=== PATIENT | male | born 1995 | race Caucasian/White ===

== ENCOUNTER 2024-07-25 05:22 | Inpatient (IN) | payer BC, SELFPAY ==
[2024-07-24 23:45] VITALS: BP 189/120; BMI 62.4
[2024-07-25] VITALS (33 sets, daily range): BP systolic 116–196; BP diastolic 65–138; BMI 62.4
[2024-07-25 00:29] LABS: % Basophils 0.4 % (0-2); % Eosinophils 0.9 % (0-6); % Immature Granulocytes 1.9 % (0-0.5); % Lymphocytes 31.7 % (20.5-51.1); % Monocytes 15.4 % (1.7-9.3); % Neutrophils 49.7 % (42.2-75.2); Absolute Eosinophils 0.1 10^3/uL (0-0.7); Absolute Immature Granulocytes 0.1 10^3/uL (0-0.05); Absolute Lymphocytes 2.4 10^3/uL (1.2-3.4); Absolute Monocytes 1.2 10^3/uL (0.1-0.6); Absolute Neutrophils 3.7 10^3/uL (1.4-6.5); Hematocrit 34.3 % (39.0-52.0); Hemoglobin 11.3 g/dL (13.0-18.0); Mean Corp Hgb Conc. 32.9 g/dL (33.0-37.0); Mean Corpuscular Hgb 30.5 pg (27.0-31.0); Mean Corpuscular Volume 92.5 fL (80.0-94.0); Mean Platelet Volume 9.7 fL (7.4-10.4); Nucleated Red Blood Cells % 0 % (-); Platelet Count 293 10^3/uL (130-400); Red Blood Cell Count 3.71 10^6/uL (4.70-6.10); Red Cell Dist. Width 18.9 % (11.5-14.5); White Blood Cell Count 7.5 10^3/uL (4.8-10.8)
--- NOTE | 2024-07-25 00:30 | ED.GENMED ---
History of Present Illness
<Dominick Jett PA-C - Last Filed: 07/26/24 18:36>
General
Chief Complaint: Male Genito-Urinary Symptoms
Time Seen by Provider: 07/25/24 00:04
History of Present Illness
History of Present Illness:
29-year-old male with history of polysubstance abuse presents to the emergency department for evaluation of multiple complaints. He was reportedly admitted to [facility] on July 21 due to visual hallucinations as well as severe scrotal
cellulitis. He was admitted to the intensive care unit and started on a Precedex drip due to concern for substance withdrawal. According to [facility] records he had significant apnea and hypercapnia as a result of the Precedex drip and was placed
on BiPAP, Precedex was then stopped. He was treated with IV antibiotics for scrotal cellulitis. Today he became increasingly agitated and signed himself out AGAINST MEDICAL ADVICE. I do not see any record of imaging performed to assess the
scrotal cellulitis further. The patient admits to me a long history of nitrous oxide abuse, prior history of alcohol abuse but has not drank in at least 3 months. Currently he has severe paranoia and severe visual hallucinations however he refuses
to tell me exactly what he is seeing
Review of Systems
<Dominick Jett PA-C - Last Filed: 07/26/24 18:36>
Review of Systems
Allergies reviewed?: Yes
All Other Systems: ROS reviewed and negative except as documented in HPI and ROS
Phy Exam
<Dominick Jett PA-C - Last Filed: 07/26/24 18:36>
Physical Exam
Physical Exam:
GEN: Morbidly obese, appears to be responding to internal stimuli, eyes darting across the room
Eyes: PERRLA, horizontal nystagmus seen, fatigable, oral mucosa dry
HENT: NCAT, oral mucosa moist, no JVD, no cervical adenopathy.
Lungs: CTAB, no wheezes, rales, rhonchi, normal chest wall excursion
Cardiac: Tachycardic, regular
Abdomen: Massive obesity limits exam
: Massive scrotal edema and erythema with purulent discharge
Neuro: Alert and oriented x 3 but with visual hallucinations
MSK: No gross deformity or ecchymosis. Severe bilateral lower extremity lymphedema
Skin: No rashes, petechiae. Normal color, no pallor or jaundice.
Psych: Calm, cooperative, poor hygiene, intermittently agitated
Sepsis
<Dominick Jett PA-C - Last Filed: 07/26/24 18:36>
Sepsis Screening
Sepsis Assessment: Sepsis Ruled Out
Sepsis Screen
Sepsis Screen: Sepsis Ruled Out
Date: 07/26/24
Time: 18:36
Course
<Dominick Jett PA-C - Last Filed: 07/26/24 18:36>
Orders/Labs/Results
Orders:
Orders
07/25/24 00:13
Electrocardiogram (*1) Urgent
Reason for Study: Other
Other Reason for Exam: Possible Sepsis
Cardiac Monitoring- Treatment ONCE
IV Insert/Care/Rem.- Treatment PRN
O2 Therapy [RESP] Urgent
Titrate/Wean O2 to maintain O2 sat greater than (%): 93
Special Instructions: TO MAINTAIN CONTINUOUS O2 SATS > OR = 93%
Pulse Ox/cont/shift [RESP] Urgent
Quantity: 1
Special Instructions: CONTINUOUS
07/25/24 00:14
EKG- Treatment ONCE
07/25/24 00:15
Complete Blood Count/With Diff Urgent
Comprehensive Metabolic Panel Urgent
Fentanyl, Urine Urgent
Folate Urgent
Lactic Acid Q4H
Comment: ON ICE, CANCEL 2ND ORDER IF FIRST LACTIC ACID LEVEL <2
Urine Drug Abuse Screen Urgent
Date Specimen was Collected: 07/25/24
Time Specimen was Collected: 00:14
Vitamin B12 Urgent
Comment: ADD ON
07/25/24 00:27
0.9% Sodium Chloride 1000 ml [Nss] 1,000 ml IV BOLUS
07/25/24 00:29
Acetone [B-Hydroxybutyrate] Urgent
Venous Blood Gas Urgent
%Oxygen/Room Air: 90
FOLic ACID [Folvite] 1 mg 0.9% Sodium Chloride 50 ml [Nss] 50 ml IV NOW
Piperacillin/Tazo 3.375 Gram [Zosyn] 3.375 gram in 50 ml IV NOW
07/25/24 00:30
Add On- LAB Urgent
Tests Added?: B12, folate
Blood Culture Q30M
ROBBIN Source: Blood/Venous
Specimen Description:
07/25/24 00:31
Blood Culture Q30M
ROBBIN Source: Blood/Venous
Specimen Description:
07/25/24 01:04
Brambila Placement- Treatment ONCE
Reason for insertion: Urology Determination
07/25/24 01:25
Urinalysis Reflex To Culture Urgent
Date Specimen was Collected: 07/25/24
Time Specimen was Collected: 00:14
Urine Microscopic Reflex Cult Urgent
07/25/24 01:30
Vancomycin [Vancocin] 2,000 mg 0.9% Sodium Chloride 500 ml [Nss] 500 ml IV NOW
07/25/24 03:03
Lorazepam [Ativan] 1 mg IV NOW STA
07/25/24 03:08
CT Pelvis With Iv Contrast Urgent
Comment:
Reason For Exam: scrotal abscess
07/25/24 04:46
Admit/Transfer Patient As Directed
Co-Sign Provider:
Level of Care: Inpatient admission
Assign to:: ICU
Physician / Group: Ang
Diagnosis: Scrotal Cellulitis, Psychosis / Substance Use Disorder
Reason for Hospitalization: Scrotal Cellulitis, Psychosis / Substance Use Disorder
Expected length of stay greater than two midnights?: Yes
ELOS- Estimated Length of Stay in days: 5
I certify the patient meets the requirements for IP care: Yes
Lorazepam [Ativan] 1 mg IV NOW STA
07/25/24 04:47
PRN Pain Medication Management As Directed
May give lesser potent ordered pain med per pt: Yes
preference::
Protocol:: Medication orders for pain may be administered in a
manner that supports deferring to patient preference
when the pt is:
- Requesting an ordered lesser potent pain medication.
Least to most potent pain medications are defined
as: acetaminophen < NSAID < tramadol < opioids
(morphine, oxycodone, hydromorphone).
- Requesting a lesser dose of the same medication IF
ORDERED.
- Requesting a less intrusive route of administration
if both routes are prescribed by the provider (PO <
IV).
07/25/24 04:49
Code Status As Directed
Resuscitation Status: Full Code
07/25/24 05:59
Acetaminophen [Tylenol] 650 mg PO Q4HPRN PRN
Dextrose 50%-Water [Dextrose 50% Syringe] 12.5 grams IV [id number] PRN
Glucagon [GlucaGen] 1 mg IM PRN PRN
HYDROmorphone [Dilaudid] 0.5 mg IV Q4HPRN PRN
Lorazepam [Ativan] 1 mg IV Q4HPRN PRN
07/25/24 05:59
Consult Notification Routine
Specialty to Notify: Infectious Disease
Date consulting provider notified: 07/25/24
Time consulting provider notified: 08:13
Notified:: Provider
Consult Notification Routine
Specialty to Notify: Ergonomics Consultant
Date consulting provider notified: 07/25/24
Time consulting provider notified: 08:12
Notified:: Provider
Consult Notification Routine
Specialty to Notify: Neurology
Date consulting provider notified: 07/25/24
Time consulting provider notified: 08:13
Notified:: Provider
Consult Notification Routine
Specialty to Notify: Psychiatry
Date consulting provider notified: 07/25/24
Time consulting provider notified: 08:13
Notified:: Provider
INFECTIOUS DISEASE CONSULT Routine
Consulting Provider: Dior Pablo
Was physician already notified: No
Reason for consult: Scrotal cellulitis
Ergonomics Consultant Consult Routine
Consulting Provider: Elton Polanco
Was physician already notified: No
Reason for consult: Scrotal Cellulitis, Psychosis / Substance Use Disorder
NEUROLOGY CONSULT Routine
Consulting Provider: Devon Johnston
Was physician already notified: No
Reason for consult: Acute Delirium / Chronic Nitrous Oxide Abuse
PSYCHIATRY CONSULT Routine
Consulting Provider: Huyen Grimes
Was physician already notified: No
Reason for consult: Psychosis / Substance Use Disorder
UROLOGY CONSULT Routine
Consulting Provider: Everardo Jiang
Was physician already notified: Yes
Comment: Scrotal Cellulitis
Activity As Directed
Activity Level: Ambulate
With Assistance
Bedside Glucose Monitoring As Directed
Frequency: Q6H
Additional Instructions:: Change to q6h if pt on TPN, tube feeding or not eating
EKG with chest pain [ECG as needed] As Directed
ECG as needed for:: Chest Pain
Brambila Catheter [Catheter- Indwelling] As Directed
Reason for insertion: I&O's Critical Care
Assess insertion reason daily.Remove if no longer applicable: Yes
I/O [Intake/ Output] As Directed
Frequency: Per unit guidelines
Neurological Checks As Directed
Frequency: q4h
Vital Signs As Directed
Frequency: Per unit guidelines
Oxygen Therapy [O2 Therapy] [RESP] Routine
Titrate/Wean O2 to maintain O2 sat greater than (%): 94
Ot Eval And Treat Routine
PT Consult [Pt Eval And Treat] Routine
Activity Level: Ambulate
With Assistance
DX Deep Vein Thrombosis Video Routine
07/25/24 06:00
EKG [Electrocardiogram (*1)] IN AM
Reason for Study: Chest Pain
NPO
Allow oral meds: Yes
Allow clear liquids: Sips of Clears
07/25/24 06:47
CPK [Creatine Phosphokinase] IN AM
Methylmalonic Acid [S] Routine
TSH Reflex To Free T4 Routine
07/25/24 06:48
Glycohemoglobin (HgbA1c) IN AM
07/25/24 07:30
Insulin Aspart Corrective Low [Novolog Flexpen-Low Resistance] See Protocol SC AC
07/25/24 08:00
Cyanocobalamin 1,000 mcg IM DAILY
Enoxaparin Sodium [Lovenox] 40 mg SC BID
Piperacillin/Tazo 3.375 Gram [Zosyn] 3.375 gram in 50 ml IV Q6H
Abnormal Lab Results
07/25/24 07/25/24 07/25/24
00:15 00:29 01:25
RBC 3.71 L 10^6/uL
(4.70-6.10)
Hgb 11.3 L g/dL
(13.0-18.0)
Hct 34.3 L %
(39.0-52.0)
MCHC 32.9 L g/dL
(33.0-37.0)
RDW 18.9 H %
(11.5-14.5)
Abs Immat Gran (auto) 0.1 H 10^3/uL
(0-0.05)
Absolute Monos (auto) 1.2 H 10^3/uL
(0.1-0.6)
Immature Gran % 1.9 H %
(0-0.5)
Monocytes % 15.4 H %
(1.7-9.3)
VBG pO2 91 H mmHg
(30-50)
Vitamin B12 981 H pg/ml
(239-931)
Folate > 20.0 H ng/ml
(2.76-20)
Urine Ketones 1+ A
(Negative)
Ur Occult Blood Reflex 1+ A
(Negative)
Leukocyte Esterase Rfl Trace A
(Negative)
Urine RBC 7-10 A /HPF
(0-2)
Urine Bacteria (Reflex) Few A
(Negative)
U Benzodiazepines Scrn Positive H
(Negative)
U Marijuana (THC) Screen Positive H
(Negative)
B-Hydroxybutyrate 1.97 H mmol/L
(0.02-0.27)
07/25/24 00:15
07/25/24 00:15
Vital Signs
Initial and Last Documented VS:
Initial Vital Signs
Temp Pulse Resp BP Pulse Ox
99.8 F 114 24 189/120 94
07/24/24 23:45 07/24/24 23:45 07/24/24 23:45 07/24/24 23:45 07/24/24 23:45
Last Documented Vital Signs
Temp Pulse Resp BP Pulse Ox
99.2 F 73 19 150/87 98
07/26/24 15:00 07/26/24 14:00 07/26/24 14:00 07/26/24 12:00 07/26/24 16:00
Vandanalt;Med Lamb, - Last Filed: 07/25/24 03:40>
Orders/Labs/Results
Orders:
Orders
07/25/24 00:13
Electrocardiogram (*1) Urgent
Reason for Study: Other
Other Reason for Exam: Possible Sepsis
Cardiac Monitoring- Treatment ONCE
IV Insert/Care/Rem.- Treatment PRN
O2 Therapy [RESP] Urgent
Titrate/Wean O2 to maintain O2 sat greater than (%): 93
Special Instructions: TO MAINTAIN CONTINUOUS O2 SATS > OR = 93%
Pulse Ox/cont/shift [RESP] Urgent
Quantity: 1
Special Instructions: CONTINUOUS
07/25/24 00:14
EKG- Treatment ONCE
07/25/24 00:15
Complete Blood Count/With Diff Urgent
Comprehensive Metabolic Panel Urgent
Fentanyl, Urine Urgent
Folate Urgent
Lactic Acid Q4H
Comment: ON ICE, CANCEL 2ND ORDER IF FIRST LACTIC ACID LEVEL <2
Urine Drug Abuse Screen Urgent
Date Specimen was Collected: 07/25/24
Time Specimen was Collected: 00:14
Vitamin B12 Urgent
Comment: ADD ON
07/25/24 00:27
0.9% Sodium Chloride 1000 ml [Nss] 1,000 ml IV BOLUS
07/25/24 00:29
Acetone [B-Hydroxybutyrate] Urgent
Venous Blood Gas Urgent
%Oxygen/Room Air: 90
FOLic ACID [Folvite] 1 mg 0.9% Sodium Chloride 50 ml [Nss] 50 ml IV NOW
Piperacillin/Tazo 3.375 Gram [Zosyn] 3.375 gram in 50 ml IV NOW
07/25/24 00:30
Add On- LAB Urgent
Tests Added?: B12, folate
Blood Culture Q30M
ROBBIN Source: Blood/Venous
Specimen Description:
07/25/24 00:31
Blood Culture Q30M
ROBBIN Source: Blood/Venous
Specimen Description:
07/25/24 01:04
Brambila Placement- Treatment ONCE
Reason for insertion: Urology Determination
07/25/24 01:25
Urinalysis Reflex To Culture Urgent
Date Specimen was Collected: 07/25/24
Time Specimen was Collected: 00:14
Urine Microscopic Reflex Cult Urgent
07/25/24 01:30
Vancomycin [Vancocin] 2,000 mg 0.9% Sodium Chloride 500 ml [Nss] 500 ml IV NOW
07/25/24 03:03
Lorazepam [Ativan] 1 mg IV NOW STA
07/25/24 03:08
CT Pelvis With Iv Contrast Urgent
Comment:
Reason For Exam: scrotal abscess
07/25/24 04:46
Admit/Transfer Patient As Directed
Co-Sign Provider:
Level of Care: Inpatient admission
Assign to:: ICU
Physician / Group: Ang
Diagnosis: Scrotal Cellulitis, Psychosis / Substance Use Disorder
Reason for Hospitalization: Scrotal Cellulitis, Psychosis / Substance Use Disorder
Expected length of stay greater than two midnights?: Yes
ELOS- Estimated Length of Stay in days: 5
I certify the patient meets the requirements for IP care: Yes
Lorazepam [Ativan] 1 mg IV NOW STA
07/25/24 04:47
PRN Pain Medication Management As Directed
May give lesser potent ordered pain med per pt: Yes
preference::
Protocol:: Medication orders for pain may be administered in a
manner that supports deferring to patient preference
when the pt is:
- Requesting an ordered lesser potent pain medication.
Least to most potent pain medications are defined
as: acetaminophen < NSAID < tramadol < opioids
(morphine, oxycodone, hydromorphone).
- Requesting a lesser dose of the same medication IF
ORDERED.
- Requesting a less intrusive route of administration
if both routes are prescribed by the provider (PO <
IV).
07/25/24 04:49
Code Status As Directed
Resuscitation Status: Full Code
07/25/24 05:59
Acetaminophen [Tylenol] 650 mg PO Q4HPRN PRN
Dextrose 50%-Water [Dextrose 50% Syringe] 12.5 grams IV [id number] PRN
Glucagon [GlucaGen] 1 mg IM PRN PRN
HYDROmorphone [Dilaudid] 0.5 mg IV Q4HPRN PRN
Lorazepam [Ativan] 1 mg IV Q4HPRN PRN
07/25/24 05:59
Consult Notification Routine
Specialty to Notify: Infectious Disease
Date consulting provider notified: 07/25/24
Time consulting provider notified: 08:13
Notified:: Provider
Consult Notification Routine
Specialty to Notify: Ergonomics Consultant
Date consulting provider notified: 07/25/24
Time consulting provider notified: 08:12
Notified:: Provider
Consult Notification Routine
Specialty to Notify: Neurology
Date consulting provider notified: 07/25/24
Time consulting provider notified: 08:13
Notified:: Provider
Consult Notification Routine
Specialty to Notify: Psychiatry
Date consulting provider notified: 07/25/24
Time consulting provider notified: 08:13
Notified:: Provider
INFECTIOUS DISEASE CONSULT Routine
Consulting Provider: Dior Pablo
Was physician already notified: No
Reason for consult: Scrotal cellulitis
Ergonomics Consultant Consult Routine
Consulting Provider: Elton Polanco
Was physician already notified: No
Reason for consult: Scrotal Cellulitis, Psychosis / Substance Use Disorder
NEUROLOGY CONSULT Routine
Consulting Provider: Devon Johnston
Was physician already notified: No
Reason for consult: Acute Delirium / Chronic Nitrous Oxide Abuse
PSYCHIATRY CONSULT Routine
Consulting Provider: Huyen Grimes
Was physician already notified: No
Reason for consult: Psychosis / Substance Use Disorder
UROLOGY CONSULT Routine
Consulting Provider: Everardo Jiang
Was physician already notified: Yes
Comment: Scrotal Cellulitis
Activity As Directed
Activity Level: Ambulate
With Assistance
Bedside Glucose Monitoring As Directed
Frequency: Q6H
Additional Instructions:: Change to q6h if pt on TPN, tube feeding or not eating
EKG with chest pain [ECG as needed] As Directed
ECG as needed for:: Chest Pain
Brambila Catheter [Catheter- Indwelling] As Directed
Reason for insertion: I&O's Critical Care
Assess insertion reason daily.Remove if no longer applicable: Yes
I/O [Intake/ Output] As Directed
Frequency: Per unit guidelines
Neurological Checks As Directed
Frequency: q4h
Vital Signs As Directed
Frequency: Per unit guidelines
Oxygen Therapy [O2 Therapy] [RESP] Routine
Titrate/Wean O2 to maintain O2 sat greater than (%): 94
Ot Eval And Treat Routine
PT Consult [Pt Eval And Treat] Routine
Activity Level: Ambulate
With Assistance
DX Deep Vein Thrombosis Video Routine
07/25/24 06:00
EKG [Electrocardiogram (*1)] IN AM
Reason for Study: Chest Pain
NPO
Allow oral meds: Yes
Allow clear liquids: Sips of Clears
07/25/24 06:47
CPK [Creatine Phosphokinase] IN AM
Methylmalonic Acid [S] Routine
TSH Reflex To Free T4 Routine
07/25/24 06:48
Glycohemoglobin (HgbA1c) IN AM
07/25/24 07:30
Insulin Aspart Corrective Low [Novolog Flexpen-Low Resistance] See Protocol SC AC
07/25/24 08:00
Cyanocobalamin 1,000 mcg IM DAILY
Enoxaparin Sodium [Lovenox] 40 mg SC BID
Piperacillin/Tazo 3.375 Gram [Zosyn] 3.375 gram in 50 ml IV Q6H
Abnormal Lab Results
07/25/24 07/25/24 07/25/24
00:15 00:29 01:25
RBC 3.71 L 10^6/uL
(4.70-6.10)
Hgb 11.3 L g/dL
(13.0-18.0)
Hct 34.3 L %
(39.0-52.0)
MCHC 32.9 L g/dL
(33.0-37.0)
RDW 18.9 H %
(11.5-14.5)
Abs Immat Gran (auto) 0.1 H 10^3/uL
(0-0.05)
Absolute Monos (auto) 1.2 H 10^3/uL
(0.1-0.6)
Immature Gran % 1.9 H %
(0-0.5)
Monocytes % 15.4 H %
(1.7-9.3)
VBG pO2 91 H mmHg
(30-50)
Vitamin B12 981 H pg/ml
(239-931)
Folate > 20.0 H ng/ml
(2.76-20)
Urine Ketones 1+ A
(Negative)
Ur Occult Blood Reflex 1+ A
(Negative)
Leukocyte Esterase Rfl Trace A
(Negative)
Urine RBC 7-10 A /HPF
(0-2)
Urine Bacteria (Reflex) Few A
(Negative)
U Benzodiazepines Scrn Positive H
(Negative)
U Marijuana (THC) Screen Positive H
(Negative)
B-Hydroxybutyrate 1.97 H mmol/L
(0.02-0.27)
07/25/24 00:15
07/25/24 00:15
Vital Signs
Initial and Last Documented VS:
Initial Vital Signs
Temp Pulse Resp BP Pulse Ox
99.8 F 114 24 189/120 94
07/24/24 23:45 07/24/24 23:45 07/24/24 23:45 07/24/24 23:45 07/24/24 23:45
Last Documented Vital Signs
Temp Pulse Resp BP Pulse Ox
99.2 F 73 19 150/87 98
07/26/24 15:00 07/26/24 14:00 07/26/24 14:00 07/26/24 12:00 07/26/24 16:00
<Dominick Jett PA-C - Last Filed: 07/26/24 18:36>
MDM/Problems Addressed
MDM/Problems Addressed:
I suspect patient's hallucinations are predominantly driven by nitrous oxide abuse, and subsequent B12 deficiency. Also cannot discount the possibility of sepsis causing his symptoms however his serum white count is unremarkable most likely due to
multiple day hospital admission on IV antibiotics. Additionally he is noted to have significant urinary retention, Brambila catheter was placed with greater than 1.5 L of urine returned. He is promptly administered IV antibiotics. Unfortunately due
to his body habitus we cannot obtain a CT scan for further assessment of the scrotal cellulitis, will defer this to the medical team in the hospital for further imaging considerations. Patient will ultimately also need psychiatric consultation
however needs medical stabilization first. IV folate given due to suspected B12 deficiency from nitrous oxide use. Will be admitted to the hospitalist service for further management
<Dominick Jett PA-C - Last Filed: 07/26/24 18:36>
*Critical Care Note
Total Time (30-74mins, 75-104mins- exclusive of procedures): Not Applicable
ED Attending Note
<Dominick Jett PA-C - Last Filed: 07/26/24 18:36>
-
Portions of this chart may have been created with voice recognition software.� Occasional wrong word or��sound alike� substitutions may have occurred due to the inherent limitations of voice recognition software.
<Med Lamb, DO - Last Filed: 07/25/24 03:40>
ED Attending Note
I performed the substantive portion of visit, reviewed & personally made and approve the management plan that is documented in note by myself or EUGENE.: Yes
Discharge Plan
Departure
Patient Disposition: Admit
Date of Disposition: 07/25/24
Time of Disposition: 01:48
Admit to: IMU
Presentation/result/management discussed w/ accepting MD/DO: Hospitalist
Discharge Problem:
Acute metabolic encephalopathy, Cellulitis of scrotum, Polysubstance abuse
Interventions
Interventions:
*General Assessment Last Done: 07/24/24 23:45
*Neglect/Abuse Screening Last Done: 07/24/24 23:45
*Nursing Disposition Last Done: 07/25/24 06:01
ED-Male Genitourinary Assessment Last Done: 07/25/24 00:21
Discharge Date and Time
Discharge Date/Time: 07/25/24 06:01
[2024-07-25 00:34] LABS: Lactic Acid 1.6 mmol/L (0.7-2.0)
[2024-07-25 00:39] LABS: Venous Blood Gas B.E. 0.1 mmol/L (-4 to +4); Venous Blood Gas HCO3 25.4 mmol/L (22-27); Venous Blood Gas O2 Sat % 97.5 %; Venous Blood Gas pCO2 43 mmHg (35-48); Venous Blood Gas pH 7.38 (7.32-7.43); Venous Blood Gas pO2 91 mmHg (30-50)
[2024-07-25 00:50] LABS: ALT (SGPT) 48 U/L (0-50); AST (SGOT) 56 U/L (17-59); Albumin 3.7 g/dl (3.5-5.0); Alkaline Phosphatase 53 U/L (38-126); Blood Urea Nitrogen 16 mg/dl (9-20); Carbon Dioxide 23 mmol/L (22-30); Chloride 101 mmol/L (98-107); Estimated Creatinine Clearance > 125 ml/min; Glucose 88 mg/dl (70-99); Potassium 4.4 mmol/L (3.5-5.1); Sodium 139 mmol/L (135-145); Total Bilirubin 0.7 mg/dl (0.2-1.3); Total Protein 6.7 g/dl (6.3-8.2); eGFR > 60.00
[2024-07-25] MEDS: NSS 1000 IV (00:50)
[2024-07-25] MEDS: ZOSYN 50 IV ×4 (00:50→19:47)
[2024-07-25 01:25] LABS: B-Hydroxybutyrate 1.97 mmol/L (0.02-0.27)
[2024-07-25 01:39] LABS: Urine Albumin Negative (Neg - Trace); Urine Bilirubin Negative (Negative); Urine Character Clear (Clear); Urine Color Yellow; Urine Glucose Negative (Negative); Urine Ketone 1+ (Negative); Urine Leukocyte Trace (Negative); Urine Nitrite Negative (Negative); Urine Occult Blood 1+ (Negative); Urine Urobilinogen 1+ (Neg - 1+)
[2024-07-25] MEDS: VANCOCIN 540 MG IV (01:46)
[2024-07-25 01:53] LABS: Urine Hyaline Cast 0-2 /LPF (0-2)
[2024-07-25 01:55] LABS: Urine Bacteria Few (Negative)
[2024-07-25 02:16] LABS: Folate > 20.0 ng/ml (2.76-20); Vitamin B12 981 pg/ml (239-931)
[2024-07-25] MEDS: ATIVAN 1 MG IV ×4 (03:07→19:44)
[2024-07-25] MEDS: FOLVITE 50.2 MG IV (04:25)
--- NOTE | 2024-07-25 05:02 | HPS.HSE ---
Family Physician
-
Family Physician: NOT KNOW UNKNOWN - PT DOES
Chief Complaint
-
Scrotal swelling
History of Present Illness
Patient is a 29y M with PMH significant for morbid obesity who presents to ED complaining of scrotal swelling. History obtained from patient and family at the bedside. Patient presented to [facility] on Saturday with similar complaints of scrotal
swelling and discomfort. He was also noted to be agitated with intermittent hallucinations. Patient admits to long history of regular nitrous oxide use. He has used this daily for the past month or so - last use being Saturday when he was admitted
to [facility].
He was treated at [facility] with Ativan, Precedex (which reportedly caused excessive sedation) and Ativan again. This AM, patient was agitated and elected to sign out of that facility AMA. He briefly went home with family before presenting here with
similar complaints.
Patient was treated with IV abx and topical therapy for scrotal infection at [facility] as well.
Patient reports about 3-4 weeks of progressive pain, swelling and redness of the scrotum. He notes difficulty ambulating due to discomfort / swelling.
He denies any prior history of similar issues.
He notes that he has not seen a physician regularly in the past 10 years or so.
His only chronic medication is Nexium.
Medical History
Past Medical History
Past Medical History: Reports Other
Additional Past Medical History:
Morbid Obesity
Substance Abuse
DM-II (newly diagnosed)
Past Surgical History: Reports Other
Additional Past Surgical History:
Right Wrist Surgery
Right Ankle Surgery
Knee Arthroscopy
Social History
Tobacco: Non-smoker
Alcohol: None
Drug: Other (Smokes marijuana occasionally. Regular use of nitrous oxide x years - daily use over the past month or so.)
Family History
Family History: Not pertinent
Allergies / Home Medications
Allergies reflects when Allergies were last updated in [facility].
Home Medications with original date entered in [facility]
Allergy/Medication List:
Allergies
Allergy/AdvReac Type Severity Reaction Status Date / Time
No Known Allergies Allergy Verified 03/17/21 13:42
Home Medications
esomeprazole magnesium 20 mg capsule,delayed release (Nexium) 20 mg PO DAILY 07/25/24
Review of Systems
-
History Source: Patient
A 12 point ROS was completed and negative except as noted: Yes
Constitutional: Denies Fever or Chills
Respiratory: Denies Cough or Trouble Breathing
Cardiac: Denies Chest Pain or Palpitations
Abdomen/GI: Denies Abdominal Pain, Nausea, Vomiting, Diarrhea or Bloody Stools
: Reports Other (scrotal swelling, pain, redness.); Denies Dysuria
Psych: Reports Anxiety, Audio or Visual Hallucinations and Other (Agitation)
Physical Exam
Vital Signs
Vital Signs
Temp Pulse Resp BP Pulse Ox
99.8 F 107 19 127/95 95
07/24/24 23:45 07/25/24 04:00 07/25/24 04:00 07/25/24 04:00 07/25/24 04:00
Physical Exam
General: Other (Super morbidly obese 29y M in no distress at the time of my exam. Intermittently agitated during ED stay.)
HEENT: Other (Thick neck. Dry MM. )
Respiratory: Other (Decreased BS at bases - otherwise clear.)
Cardiac: S1/S2 and Tachycardia; No Murmur
GI: Other (Obese. No focal tenderness, rebound or guarding. Pos BS.)
Genito-urinary: Other (Marked tense edema of the scrotum with skin breakdown at dependent areas with minimal oozing. Erythema, induration, tenderness and increased warmth. No crepitus. Brambila in place.)
Musculoskeletal: No Clubbing, No Cyanosis and No Edema
Neuro: Awake and Alert
Psych: Agitated and Other (Occasionally exhibits evidence of visual and auditory hallucinations.)
Laboratory Results
-
07/25/24 00:15
07/25/24 00:15
Laboratory Results
Lactic Acid 1.6 mmol/L (0.7-2.0) 07/25/24 00:15
Total Bilirubin 0.7 mg/dl (0.2-1.3) 07/25/24 00:15
AST 56 U/L (17-59) 07/25/24 00:15
ALT 48 U/L (0-50) 07/25/24 00:15
Alkaline Phosphatase 53 U/L (38-126) 07/25/24 00:15
Impression/Plan
-
A/P: Patient is a29y M with PMH significant for morbid obesity and recently recognized DM-II who presents to ED for evaluation of scrotal swelling and pain as well as hallucinations.
Severe Scrotal Cellulitis
- Admit to ICU for further evaluation and treatment.
- CT scan was obtained in the ED and shows severe cellulitis with no evidence of fluid collection or gas in the soft tissues.
- IV abx with Vanco / Zosyn for now.
- ID and urology evaluations for additional recommendations.
- Maintain Brambila for now.
- Obtain records from recent [facility] stay.
Hallucinations
Acute Psychosis / Acute TME
- Very likely this is secondary to long-standing N2O abuse.
- B12 level in the ED today is slightly high - suspect this is due to supplementation started at [facility].
- Patient admits to occasional marijuana use - but denies any other illicit substance use.
- Patient denies EtOH use. Standing Serax dosing at [facility] led to excessive sedation.
- Continue B12 supplementation.
- Follow for any evidence of neuropsychiatric improvement.
- Ativan PRN for symptom control for now.
- Consider Precedex if necessary for persistent agitation / hallucinations.
- Neurology and Psychiatry consulted for further recommendations.
DM-II
- Diagnosed during recent [facility] stay.
- Follow glucose and cover with SSI as needed.
- Update A1C.
Super Morbid Obesity due to excess calories
- Affects all aspects of care.
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
DVT Prophylaxis: High Dose Lovenox
Code Status: Full
[2024-07-25 06:05] LABS: Amphetamines Negative (Negative); Barbiturates Negative (Negative); Benzodiazepines Positive (Negative); Buprenorphine Negative (Negative); Cocaine Negative (Negative); Methadone Negative (Negative); Methamphetamines Negative (Negative); Opiates Negative (Negative)
[2024-07-25 06:06] LABS: Marijuana Positive (Negative); Phencyclidine Negative (Negative); Tricyclic Antidepressants Negative (Negative)
[2024-07-25 06:13] LABS: Fentanyl, Urine Negative (Negative)
--- NOTE | 2024-07-25 06:23 | PTCARENOTE ---
Pt received to room 3364 from ED via bed. Initially pt drowsy, cooperative and calm. Now pt belligerent at times to staff and refusing to answer questions, swearing at staff. Unable to determine orientation as pt will not answer orientation
questions. Was able to answer some of admission questions but other questions pt was unable to answer. Pt picking at air at times seemingly seeing things not there. Scrotum extremely swollen and excoriated. Will continue to monitor.
[2024-07-25 07:08] LABS: INR 1.15
[2024-07-25 07:09] LABS: APTT 31.1 Sec (23.4-35.0)
[2024-07-25 07:27] LABS: Creatine Phosphokinase 403 U/L (55-170)
[2024-07-25 07:29] LABS: Phosphorus 4.8 mg/dl (2.5-4.5)
--- NOTE | 2024-07-25 07:41 | CON.INTV ---
Consultation
Consultation Request
Date/Time Consultation Requested: 07/25/2024558
Date/Time Consultation Performed: 07/25/2024737
Requesting Provider: Dr. Fry
Performing Provider: Dr. Polanco
Reason for Consultation: Scrotal cellulitis/Psychosis
Medical History
-
Chief Complaint: Testicular pain and swelling
History of Present Illness:
29-year-old male with a past medical history of hypertension, history of alcohol abuse, MATT not yet started on treatment, newly diagnosed DM type II (as per patient), and chronic lipid abuse who presents with testicular pain and swelling. He was at
[facility] prior to arrival and was apparently agitated they are requiring Precedex, and then he ended up leaving [facility] as he was unhappy with their care, although he was reportedly treated with IV antibiotics and topical therapy for his
scrotal infection. He was having hallucinations upon arrival here to [facility]. He said he has been having this scrotal swelling and redness for about 6 months, with progressively worsening pain, swelling and redness over the last 3-4
weeks. It has been causing difficulty walking around due to discomfort and swelling. Initially in the ER he was afebrile to 99.8 �F, tachycardic to 114, respiratory rate 24, BP 189/120, and saturating 94% on room air. Initial labs showed normal
WBC at 7.5, Hb 11.3, lactate WNL at 1.6, CK4 3, urinalysis with trace leukocyte esterase, UDS positive for benzodiazepines, and marijuana. Beta hydroxybutyrate was elevated at 1.97 and he had +1 ketones in his urine. Of note his serum bicarbonate
level was normal at 23 and his anion gap was 15. Blood cultures were collected. Pelvic CT showed marked scrotal wall edema suggesting cellulitis with no subcutaneous gas to suggest Rustam's gangrene. CXR showed concern for mild�moderate CHF.
Of note prior stress echo in March 2021 showed an estimated EF of 55 to 60% with a normal stress echo and normal hemodynamic response to exercise. In the ER he was given 1 L NS 0.9%, IV vancomycin/Zosyn, 1 mg Ativan and Folvite. Due to his
severe scrotal cellulitis with hallucinations he was admitted to the ICU for further care and meeting specialist services consulted for additional management/recommendations.
PMHx: Hypertension, morbid obesity, history of alcohol abuse, MATT not yet started on treatment, DM type II (recently diagnosed as per patient)
PSHx: ORIF of right hand, wisdom tooth extraction, knee arthroscopy, right ankle surgery
Past Medical History
Past Medical History: Other (Above as per HPI)
Past Surgical History: Other (Above as per HPI)
Social History
Tobacco: Non-smoker
Alcohol: Former
Drug: Marijuana and Other (Uses whippets regularly for years)
Family History
Family History: CAD (Maternal grandmother + maternal aunt), Cancer (Maternal grandfather (unknown type)), Diabetes (Maternal grandfather), Hypertension (Mother) and Other (Father: COPD/smoking history)
Allergies / Home Medications
Allergies
Allergy/AdvReac Type Severity Reaction Status Date / Time
No Known Allergies Allergy Verified 03/17/21 13:42
Home Medications
�Medication �Instructions �Recorded �Confirmed �Last Taken �Type
esomeprazole magnesium 20 mg 20 mg PO DAILY 07/25/24 07/25/24 Unknown History
capsule,delayed release (Nexium)
Review of Systems
-
History Source: Patient
All other systems: Negative unless noted
Vitals / Labs / Diagnostic Testing
Vital Signs
Temp Pulse Resp BP Pulse Ox
98.7 F 103 22 140/85 96
07/25/24 07:24 07/25/24 06:00 07/25/24 06:00 07/25/24 05:57 07/25/24 06:00
Lab Data
07/25/24 06:00
07/25/24 06:00
Laboratory Results
07/25/24
06:47
PT 15.0 H
INR 1.15
APTT 31.1
Diagnostic Testing:
Physical Exam
-
HEENT: Normocephalic, Anicteric and Other (Thick neck)
Cardiovascular: S1/S2 and Peripheral Edema (Trace LE edema b/l)
Respiratory: Wheeze (negative), Rales (negative), Rhonchi (negative) and Non-Labored Respirations
GI: Soft, Distended (Significant abdominal obesity), Non Tender and Normal Bowel Sounds
Neurology: AO x 3 and Tremors (negative)
Skin: Warm, Dry and Other (Severe scrotal edema with cellulitis with no exsanguination or purulence appreciated)
General: Respiratory Distress (negative), Comfortable, Fever (negative) and Chills (negative)
Assessment
-
Assessment: 29-year-old male with a past medical history of hypertension, history of alcohol abuse, MATT not yet started on treatment, newly diagnosed DM type II (as per patient), and chronic lipid abuse who presents with testicular pain and
swelling. He was at [facility] prior to arrival and was apparently agitated they are requiring Precedex, and then he ended up leaving [facility] as he was unhappy with their care, although he was reportedly treated with IV antibiotics and topical
therapy for his scrotal infection. He was having hallucinations upon arrival here to [facility]. He said he has been having this scrotal swelling and redness for about 6 months, with progressively worsening pain, swelling and redness
over the last 3-4 weeks. It has been causing difficulty walking around due to discomfort and swelling. Initially in the ER he was afebrile to 99.8 �F, tachycardic to 114, respiratory rate 24, BP 189/120, and saturating 94% on room air. Initial
labs showed normal WBC at 7.5, Hb 11.3, lactate WNL at 1.6, CK4 3, urinalysis with trace leukocyte esterase, UDS positive for benzodiazepines, and marijuana. Beta hydroxybutyrate was elevated at 1.97 and he had +1 ketones in his urine. Of note his
serum bicarbonate level was normal at 23 and his anion gap was 15. Blood cultures were collected. Pelvic CT showed marked scrotal wall edema suggesting cellulitis with no subcutaneous gas to suggest Rustam's gangrene. CXR showed concern for
mild�moderate CHF. Of note prior stress echo in March 2021 showed an estimated EF of 55 to 60% with a normal stress echo and normal hemodynamic response to exercise. In the ER he was given 1 L NS 0.9%, IV vancomycin/Zosyn, 1 mg Ativan and
Folvite. Due to his severe scrotal cellulitis with hallucinations he was admitted to the ICU for further care and meeting specialist services consulted for additional management/recommendations.
Chronic conditions [employer]: Hypertension, morbid obesity, history of alcohol abuse, MATT not yet started on treatment, DM type II (recently diagnosed as per patient)
Impression:
#Severe scrotal cellulitis without subcutaneous gas to suggest Rustam's gangrene
#Acute psychosis/altered mental status likely due to his longstanding lipid abuse
#Acute respiratory failure with hypoxia possibly related to acute pulmonary edema seen on CXR
#Newly diagnosed DM type II (per patient)
#Very severe morbid obesity
#Newly diagnosed MATT not yet started on treatment (per patient)
#Anemia
#Elevated beta hydroxybutyrate with +1 urine ketones and anion gap of 15 � not consistent with DKA and likely due to starvation ketoacidosis (mild)
#Elevated CK likely due to his severe scrotal cellulitis
#Abnormal urinalysis with trace leukocyte esterase
Plan:
- Patient recently mated to [facility] for worsening redness, pain and swelling of his scrotum, diagnosed with scrotal cellulitis and started on IV antibiotics, however he left AMA
- Pelvic CT here shows some scrotal cellulitis without any concerning signs of Rustam's gangrene
- Continue with broad-spectrum antibiotics with IV vancomycin + Zosyn
- Infectious disease + urology consulted and recs pending
- Pain control
- Check procalcitonin for trending purposes
- Wound care
- Follow up blood Cx X2 (collected 07/25/2024)
- Trend CK
- He has a history of alcohol abuse and unclear if he has continued to use, and given his acute confusion we should start thiamine for now and continue with folic acid
- Neurology consulted as well due to his altered mental status, recs appreciated
- As of this morning, he is sleepy but alert and oriented x 3 and does not appear to be having psychosis or having hallucination; continue to monitor
- Given his reported history of newly diagnosed MATT, would start him on BiPAP with sleep and we can see him in the office for additional management otherwise he can see his original doctor that worked him up for MATT initially
- Given his slightly elevated urine ketones with slightly elevated anion gap with increased beta hydroxybutyrate, this is more consistent with starvation ketosis/ketoacidosis and not consistent with DKA
- Continue to trend BMP and BOHB, and if serum bicarbonate level continues to drop, AG continues to rise then would start him on IVF with crystalloids + supplemental dextrose as this has seemed to be most effective with starvation
ketosis/ketoacidosis situations
- Blood gas earlier this morning showed a pH of 7.38, even further showing that this is not consistent with DKA
- Maintain SpO2 >90-94% and wean down supplemental oxygen as tolerated
- Consider trial of diuresis
- Check BNP and echo
- Maintain MAP>65
- Replete electrolytes with K>4, Mg>2
- Maintain euglycemia with goal BG 140-180
- Trend H/H and transfuse if needed to keep Hb>7g/dL; keep plt>20k, unless there is concern for bleeding then keep plt>50k
- prn nebulized bronchodilators - not currently bronchospastic
- Incentive spirometer encouraged 10x per hour for at least 4 hrs a day
- DVT ppx: LMWH
Continue ICU level care given his severe scrotal cellulitis which can continue to progress and lead to Rustam's gangrene as well as sepsis with septic shock.
Total time spent today was 78 minutes for this encounter. Time includes reviewing laboratory test/imaging results, reviewing pertinent medical records, obtaining and reviewing medical history, performing an appropriate exam, ordering medications,
tests and procedures. Time also includes documentation of this encounter, coordinating patient care and communicating with other healthcare professionals. Total time does not include separately billed tests performed on this date of service.
Data:
Pelvic CT with IV contrast 07/25/2024:
Marked scrotal wall edema suggesting cellulitis. No subcutaneous gas identified to suggest Rustam's gangrene. Clinical correlation is needed, however.
Limited evaluation of pelvic viscera is grossly unremarkable. Urinary bladder is decompressed around a Brambila catheter and not well evaluated. Normal appendix.
Visualized osseous structures are unremarkable. Evaluation of additional soft tissue structures such as ligaments and tendons is limited by CT. Grossly, no abnormalities noted.
CXR 07/25/2024: Mild to moderate CHF.
[2024-07-25 07:59] LABS: TSH Reflex To Free T4 4.64 uIU/ml (0.47-4.68)
[2024-07-25] MEDS: LASIX 20 MG IV ×2 (08:05→10:55)
[2024-07-25] MEDS: LOVENOX 60 MG SC ×2 (08:07→19:46)
--- NOTE | 2024-07-25 08:08 | PTCARENOTE ---
Pt received in bed @ 0700. Arrived from ED to ICU during previous shift. Pt oriented to person. At times, able to identify that he is in [facility], but more often believes that he is in [place]. Not able to orient to [place] at those
times. Denying pain. SaO2 94% on 2L. States sleep apnea but has not started CPAP. Abdomen round, obese, full. Brambila catheter draining yellow urine.
[2024-07-25] MEDS: CYANOCOBALAMIN 1000 MCG IM (08:13)
--- NOTE | 2024-07-25 08:14 | PHA.VAN.IN ---
Assessment
- Assessment
Renal Function: Unknown baseline
Renal Function may be Overestimated due to: bmi=62.4
Concomitant Antimicrobials: zosyn
AUC Dosing Plan
- Dosing Variables
Dosing Weight (kg): 197.4
Dosing CrCl (ml/min): 100
Vd coefficient (L/kg): 0.4
- Empiric Dosing
Initial / Loading Dose: 2000mg
Maintenance Regimen: 1000mg q8h
Estimated AUC (mcg*h/mL): 454
Estimated Peak (mcg*h/mL): 25.2
Estimated Trough (mcg/ml): 13.7
Estimated Half Life (H): 7.9
- Monitoring
No levels ordered at this time: consider next few days
Pharmacokinetics Vancomycin I
- -
Patient Age: 29
Patient Sex: Male
Vancomycin Day #: 1
Indication: Skin And Soft Tissue
Requesting Provider: Dr. Fry
Pertinent Antimicrobial Allergies:
nkda
Height / Weight:
Height 5 ft 10 in
Actual Weight 197.4 kg
IBW in k
- Vital Signs / Lab Results
Temp Pulse Resp BP Pulse Ox
98.7 F 103 22 140/85 96
07/25/24 07:24 07/25/24 06:00 07/25/24 06:00 07/25/24 05:57 07/25/24 06:00
Lab Results - Hematology
07/25/24 07/25/24
00:15 06:00
WBC 7.5 Cancelled
Lab Results - Chemistry
07/25/24 07/25/24
00:15 06:00
BUN 16 Cancelled
Creatinine 0.9 Cancelled
Estimated Creat Clear > 125 Cancelled
Albumin 3.7 Cancelled
07/25/24 07/25/24
00:15 04:15
Lactic Acid 1.6 Cancelled
Lab Results - Urine
07/25/24
01:25
Urine Nitrite (Reflex) Negative
Leukocyte Esterase Rfl Trace A
Urine WBC (Reflex) 3-5
Ur Squamous Epith Cells 3-5
Urine Bacteria (Reflex) Few A
--- NOTE | 2024-07-25 08:58 | W.PN.HOSP.TC ---
Today's Communication/Plan
-
See PN
Assessment / Plan
Assessment / Plan
29yo M with apparent PMHX of DM, morbidly obese, N2O abuse came after he left AMA from [facility] (did not like how he was treated there), where he was treated for scrotal infection. He had inflammation in his private area for a long time now. CT showed
scrotal cellulitis, concern for initial stages of Rustam gangrene. ALso apparently had episodes of hallucinations in [facility] treated with precedex drip and Ativan.
A/P
#Scrotal cellulitis
clinical concern for Rustam gangrene, however no air seen on pelvic CT
Vanco/Zosyn
Bcx
Urology consult
ID consult
Brambila
#DM type 2, with unspecified complications
Accuchecks, insulin SS, DM diet
HgbA1c
#Hallucinations
not seen since admission
infection-induced?
UDS positive for marichuana
Psych consult
#Morbid obesity
BMI 62.4
decrease calorie intake
#GERD
cont PPI
DVT ppx hep
full code
I have spent at least 59min reviewing chart, test results, communication with consultants anddirect patient care
Anticipated Discharge: > 48 hours
Subjective/Interval History
-
Date of Service: July 25, 2024
Objective Data
-
Labs:
Laboratory Results
07/25/24 07/25/24 07/25/24
00:15 06:00 06:47
WBC 7.5 Cancelled
Hgb 11.3 L Cancelled
Hct 34.3 L Cancelled
Plt Count 293 Cancelled
PT 15.0 H
INR 1.15
APTT 31.1
Sodium 139 Cancelled
Potassium 4.4 Cancelled
Chloride 101 Cancelled
Carbon Dioxide 23 Cancelled
BUN 16 Cancelled
Creatinine 0.9 Cancelled
Glucose 88 Cancelled
Calcium 9.0 Cancelled
Total Bilirubin 0.7 Cancelled
AST 56 Cancelled
ALT 48 Cancelled
Alkaline Phosphatase 53 Cancelled
Vital Signs:
Vital Signs
Temp Pulse Resp BP Pulse Ox
98.7 F 103 22 140/85 96
07/25/24 07:24 07/25/24 06:00 07/25/24 06:00 07/25/24 05:57 07/25/24 06:00
I&O
07/24/24 07/25/24 07/26/24
06:59 06:59 06:59
Output Total 2049
Balance -2049
Review of Systems
-
History Source: Patient
Genitourinary: Reports Other (pain )
Physical Exam
-
General: Morbidly Obese
HEENT: Moist Mucous Membranes
Respiratory: Clear to Auscultation
Cardiac: Regular Rhythm
GI: Soft, Nontender and Nondistended
Genito-urinary: Other (swelling and pain in scrotal area extending to b/l groins)
Musculoskeletal: No Clubbing and No Cyanosis
Neuro: Awake, Alert, Oriented and AO x 3
Psych: Calm and Intact Judgement/Insight
--- NOTE | 2024-07-25 09:25 | CON.NEURO ---
Neuro Assessment/Plan
Assessment
Abrupt onset hallucinations with prior history of EtOH abuse and nitrous oxide
Plan
Agree with psychiatry evaluation
Check blood work for additional metabolic abnormalities
Consultation
Order
Date of Consultation: 07/25/24
Requesting Provider: Hospitalist
Reason for Consult: Change in mental status
Subjective/Objective
Subjective Data
Date of Service: July 25, 2024
Unknown-Handed
Patient was evaluated at a local hospital for scrotal swelling and discomfort at which time he was described as being agitated and having hallucinations. The patient signed out of that hospital AGAINST MEDICAL ADVICE and presented to this hospital
with similar issues. Since presentation, the patient was described as having progressive pain. The patient is not able to and is at times unwilling to provide medical history.
The patient reports stopping drinking in 01/2024, discontinued recent daily nitrous oxide use. The patient is unwilling to indicate what type of hallucinations he is experiencing right now and whether they are visual and/or auditory.
No known modifying factors for the patient's hallucinations.
Objective Data
Vital Signs
Temp Pulse Resp BP Pulse Ox
37.1 C 103 22 140/85 96
07/25/24 07:24 07/25/24 06:00 07/25/24 06:00 07/25/24 05:57 07/25/24 06:00
Lab Results
07/25/24 06:00
07/25/24 06:00
PT 15.0 Sec (11.4-14.6) H 07/25/24 06:47
INR 1.15 07/25/24 06:47
APTT 31.1 Sec (23.4-35.0) 07/25/24 06:47
Sodium Cancelled 07/25/24 06:00
Potassium Cancelled 07/25/24 06:00
BUN Cancelled 07/25/24 06:00
Glucose Cancelled 07/25/24 06:00
Calcium Cancelled 07/25/24 06:00
Phosphorus 4.8 mg/dl (2.5-4.5) H 07/25/24 06:47
Vitamin B12 981 pg/ml (239-931) H 07/25/24 00:15
Ur Buprenorphine Negative (Negative) 07/25/24 00:15
Patient Allergies
No Known Allergies Allergy (Verified 03/17/21 13:42)
Review of Systems
-
History Source: Patient
All other systems: Reviewed and negative
EENT: Swallowing Difficulty; Negative Decreased Vision
Respiratory: Trouble Breathing
Cardiac: Chest Pain
Musculoskeletal: Negative Back Pain or Neck Pain
Neuro: Negative Dizzy, Headache or Speech Problem
Physical Exam
-
General: No Apparent Distress and Appears Stated Age
Eyes: Round OU, [place] Conjunctivae and No Ptosis; Negative Able to visualize OU
HEENT: Anicteric and Moist Mucous Membranes
Neck: Full Range of Motion
Respiratory: No Dyspnea
Cardiac: No JVD
GI: Non-distended
Skin: Unremarkable
Extremities: No Clubbing, No Cyanosis and No Edema
Psych: Negative Intact Judgement/Insight
Extended Neurological Exam
Mood & Affect: Depressed, Anxious and Other (Tearful at times)
Attention Span & Concentration: Awake, Alert, Interactive, Mild Difficulty with 2 Step Request and Other (Does not follow some one-step requests)
Memory: Able to Recall (Month, date, year), Reduced (For current location) and Unable to Recall Personal History
Tremor: Hand Tremor Absent and Head Tremor Absent
Speech: Quality Unremarkable and Quantity Unremarkable
Cranial Nerve II: Left Eye: Pupillary Reactivity Unremarkable, Pupillary Size Unremarkable and Visual Shearer Grossly Intact
Cranial Nerve II: Right Eye: Pupillary Reactivity Unremarkable, Pupillary Size Unremarkable and Visual [place] Grossly Intact
Cranial Nerves III, IV, : Extraocular Movement: Grossly Intact
Cranial Nerve VII: Facial Symmetry: Normal Facial Symmetry
Cranial Nerve VIII: Hearing: Unremarkable Hearing to Normal Conversational Volume
Cranial Nerves IX, X: Palate Movement: Palate Elevation Symmetric
Cranial Nerve XI: Shoulder Shrug: Unremarkable
Cranial Nerve XII: Tongue Protusion: Midline
Muscle Strength, Overall: Spontaneously Moves
Muscle Bulk & Tone: Bulk Unremarkable and Tone Unremarkable
Pronator Drift: No Drift in Upper Extremities and No Drift in Lower Extremities
Deep Tendon Reflexes: Trace Throughout
Cold Sensation: Unable to Assess
Vibration Sensation: Unable to Assess
Touch Sensation: Unremarkable
Coordination: [id number] Testing Unremarkable
Babinski Sign: Absent Bilaterally
Gait & Station: Unable to Assess
Data Reviewed
-
CT Head: Report Reviewed
Labs: Report Reviewed
Reviewed with: Physician and Patient
Old Records: Summarized
Medications
-
Active Medications
Generic Name Dose Route Start Last Admin
Trade Name Freq PRN Reason Stop Dose Admin
Acetaminophen 650 mg 07/25/24 05:59
Acetaminophen 325 Mg Tablet PO 08/22/24 05:58
Q4HPRN PRN
Mild Pain / Temp > 101
Cyanocobalamin 1,000 mcg 07/25/24 08:00 07/25/24 08:13
Cyanocobalamin (1000 Mcg/Ml) 1 Ml Vial IM 08/22/24 07:59 1,000 mcg
DAILY JORDYN Administration
Dextrose 12.5 grams 07/25/24 05:59
Dextrose 50% (0.5 Grams/Ml) 50 Ml Syringe IV 08/22/24 05:58
[id number] PRN
hypoglycemia
Protocol
Enoxaparin Sodium 60 mg 07/25/24 08:00 07/25/24 08:07
Enoxaparin Sodium 60 Mg/0.6 Ml Syringe SC 08/22/24 07:59 60 mg
BID JORDYN Administration
Furosemide 20 mg 07/25/24 08:00 07/25/24 08:05
Furosemide 20 Mg (10 Mg/Ml) 2 Ml Vial IV 08/22/24 07:59 20 mg
DAILY JORDYN Administration
Glucagon 1 mg 07/25/24 05:59
Glucagon 1 Mg Vial IM 08/22/24 05:58
PRN PRN
hypoglycemia
Protocol
Hydromorphone HCl 0.5 mg 07/25/24 05:59
Hydromorphone 0.5 Mg/0.5 Ml Syringe IV 08/08/24 05:58
Q4HPRN PRN
Severe Pain
Piperacillin Sod/Tazobactam Sod 3.375 gram in 50 mls @ 100 mls/hr 07/25/24 08:00 07/25/24 08:08
Zosyn IV 50 mls
Q6H JORDYN Administration
Vancomycin HCl 1 gram in 200 mls @ 200 mls/hr 07/25/24 14:00
Vancocin IV
Q8H JORDYN
Insulin Aspart 0 units 07/25/24 07:30 07/25/24 07:35
Insulin Aspart Low Resistance 300 Units/3 Ml Pen.Injctr SC 08/22/24 07:29 Not Given
AC JORDYN
Protocol
Lorazepam 1 mg 07/25/24 05:59
Lorazepam 2 Mg/Ml Vial IV 08/22/24 05:58
Q4HPRN PRN
Agitation / Anxiety
Sodium Chloride 0 flush 07/25/24 07:00
Sodium Chloride 0.9% (Flush) Syringe IV 08/22/24 06:59
PER PROTOCOL JORDYN
Sodium Chloride 0.5 ml 07/25/24 06:41
Nss (Pf) 10 Ml Vial For Ativan 1 Mg Dose IV 08/22/24 06:40
Q4HPRN PRN
IV LORAZEPAM DILUTION
Home Medications
�Medication �Instructions �Recorded
esomeprazole magnesium 20 mg 20 mg PO DAILY 07/25/24
capsule,delayed release (Nexium)
Past History
Past History
ED Past Medical History: NIDDM and Other (scrotal cellulitis)
ED Past Surgical History: Orthopedic (Right wrist surgery, right ankle surgery, knee arthroscopy)
Social History
Alcohol: Binge drinker (Alcohol abuse listed in outpatient record)
Drug: Other (nitrous oxide daily use)
Family History
Family History: Other (reviewed and non-contributory)
[2024-07-25] MEDS: FOLVITE 1 MG PO (10:54)
--- NOTE | 2024-07-25 11:00 | CONS.URO ---
Consultation
-
Performing Provider: Raulfer
Reason for Consultation: Scrotal infection
Medical History
History of Present Illness
29y M with morbid obesity who presents to ED complaining of scrotal swelling.
Patient reports about 3-4 weeks of progressive pain, swelling and redness of the scrotum. He notes difficulty ambulating due to discomfort / swelling.
Patient presented to [facility] on Saturday with similar complaints of scrotal swelling and discomfort. He was also noted to be agitated with intermittent hallucinations. Patient admits to long history of regular daily nitrous oxide use. He has used this
daily for the past month or so - last use being Saturday when he was admitted to [facility].
Yesterday patient elected to sign out of that facility AMA. He briefly went home with family before presenting here with similar complaints.
Patient was treated with IV abx at [facility], unknown if imaging was done
CT pelvis was done showing significant scrotal wall edema without clear abscess or subcutaneous gas
Urology consulted for evaluation to r/o Founier's gangrene
Past Medical History
Past Medical History: Other (Morbid Obesity Substance Abuse DM-II (newly diagnosed))
Past Surgical History: Orthopedic
Social History
Alcohol: Former
Drug: Other
Personal: Single
Living: With Family
Family History
Family History: Reviewed & Not Pertinent
Allergies/Home Medications
Allergies
Allergy/AdvReac Type Severity Reaction Status Date / Time
No Known Allergies Allergy Verified 03/17/21 13:42
Home Medications
�Medication �Instructions �Recorded �Confirmed �Type
esomeprazole magnesium 20 mg 20 mg PO DAILY 07/25/24 07/25/24 History
capsule,delayed release (Nexium)
Physical Exam
Vital Signs
Vital Signs
Temp Pulse Resp BP Pulse Ox
98.7 F 103 22 140/85 94
07/25/24 07:24 07/25/24 06:00 07/25/24 06:00 07/25/24 05:57 07/25/24 07:38
Lab / Testing Results
Laboratory Results
07/25/24 06:00
07/25/24 06:00
Physical Exam
General: Well Developed and Other (morbidly obese, anxious, agitated)
Respiratory: Other (obstructive breathing pattern, non labored)
GI: Soft and Non Tender
Genito-urinary: Other ( severe scrotal edema, region of pale slightly necrotic tissue )
Neuro: Awake, Sedated and Other
Psych: Confused, Agitated and Other (hallucinations)
Assessment / Plan
-
29M with severe scrotal cellulitis
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
- Though CT shows no obvious fluid collection, subcutaneous gas, or abscess, local skin changes with some possible early necrosis raise concern for developing Rustam's gangrene
- Recommend OR for exam under anesthesia, scrotal exploration, and debridement of any necrotic tissue
- Discussed procedure with patient and his mother. Reviewed risks and benefits of surgery including possible loss of scrotal skin and open wound which would require multiple procedures for debridement and wound closure. Discussed risk of ongoing
pain or worsening of a life threatening infection if this is not addressed promptly. Patient and mother in agreement with proceeding to surgery
[2024-07-25 11:30] LABS: NT-proBNP 257 pg/ml
--- NOTE | 2024-07-25 11:48 | PTCARENOTE ---
Pt became actively psychotic. Sudden agitation. Shaking and yelling that he needs to speak to a roll or tape edge machine operator. Unable to orient to hospital. Did not remember me. Pt with active paranoia. Suspicious of staff intentions. Hopper Operator brought to bedside per pt
requested and pt began yelling at pool player that they were not a real pool player. Ativan 1mg IV administered for agitation. Pt agreeable to prayer with pool player. Relaxing and agreeable in bed and knows that he is in [facility]. Mom has
arrived, pt stating that he has no history of psychosis. States that he saw a 'counselor in [place]' for depression.
[2024-07-25 12:17] LABS: Glucose - Point of Care 88 mg/dl (70-99)
[2024-07-25 13:22] LABS: Glycohemoglobin (HgbA1c) 7.1 % (4.0-5.6)
--- NOTE | 2024-07-25 13:30 | CON.ID ---
Consultation
-
Date/Time Consultation Requested: July 25, 2024 0517
Date/Time Consultation Performed: July 25, 2024 1530
Requesting Provider: Dr. Axel Castro
Performing Provider: Dr. Dior Pablo
Reason for Consultation: Scrotal cellulitis
Chief Complaint / Past History
Chief Complaint
Scrotal swelling and pain
History of Present Illness
History obtained predominately from medical records since patient is currently very agitated and refuses to answer any of my questions. He is a 29-year-old male with class III obesity BMI 62, recent diagnosis of diabetes mellitus, sleep apnea,
nitrous oxide abuse, who was brought in by family yesterday for significant scrotal pain and swelling. By report he has been having increasing scrotal swelling swelling for several months, which differed significantly gotten worse over the past 4
weeks with pain and redness. He was recently hospitalized at [facility] on Saturday started on IV antibiotic and topical regimen. However patient was very agitated requiring Precedex. Yesterday he signed out AGAINST MEDICAL ADVICE and went
home. His family brought him to [facility] last night. Patient was hallucinating. CT of the pelvis shows significant swelling of the scrotum without gas. He was seen by urologist today with concern for potential early Rustam's
gangrene and plan to take him to the OR. Patient currently yelling at me and kept asking to see the float remover first.
Past History
Additional Past Medical History:
Diabetes mellitus
Class III obesity BMI 62
MATT
Substance abuse
Right hand ORIF
Right Ankle Surgery
Knee Arthroscopy
Allergy History:
No Known Allergies Allergy (Verified 03/17/21 13:42)
Medications Reviewed: Yes
Current Antibiotics:
Vancomycin
Zosyn
Social History
Tobacco: Non-Smoker
Alcohol: Former
Drug: Marijuana (occasional) and Other (Nitrous oxide)
Family History
Family History: Not Pertinent
Review of Systems
Review of Systems
Unable to obtain as patient refuses to provide review of systems.
Vital Signs
Temp Pulse Resp BP Pulse Ox
98.7 F 104 19 139/113 90
07/25/24 07:24 07/25/24 11:30 07/25/24 11:30 07/25/24 11:00 07/25/24 11:30
Physical Exam
Physical Exam
Constitutional: Non-toxic and Obese
Eyes: No Conjunctival Hemorrhage and Sclera Anicteric
Cardiovascular: Other (Tachycardic)
Gastrointestinal: Soft, Non Tender, Non Distended and Normal Bowel Sounds
Genito-Urinary: Other (Scrotum very edematous, + erythema with areas of necrotic tissue); Negative CVA Tenderness
Extremities: Edema
Neurological: Awake
Psychological: Agitated
Lab / Diagnostic Study Results
07/25/24 06:00
07/25/24 06:00
Abs Immat Gran (auto) 0.1 10^3/uL (0-0.05) H 07/25/24 00:15
Absolute Neuts (auto) 3.7 10^3/uL (1.4-6.5) 07/25/24 00:15
Absolute Lymphs (auto) 2.4 10^3/uL (1.2-3.4) 07/25/24 00:15
Absolute Monos (auto) 1.2 10^3/uL (0.1-0.6) H 07/25/24 00:15
Absolute Basos (auto) 0.0 10^3/uL (0-0.2) 07/25/24 00:15
Immature Gran % 1.9 % (0-0.5) H 07/25/24 00:15
Neutrophils % 49.7 % (42.2-75.2) 07/25/24 00:15
Lymphocytes % 31.7 % (20.5-51.1) 07/25/24 00:15
Monocytes % 15.4 % (1.7-9.3) H 07/25/24 00:15
Eosinophils % 0.9 % (0-6) 07/25/24 00:15
Basophils % 0.4 % (0-2) 07/25/24 00:15
PT 15.0 Sec (11.4-14.6) H 07/25/24 06:47
INR 1.15 07/25/24 06:47
Lactic Acid Cancelled 07/25/24 04:15
Ur Squamous Epith Cells 3-5 /LPF (Few) 07/25/24 01:25
Microbiology Results
Micro:
07/25/24 00:31 Blood Culture - Pending
Blood/Venous
07/25/24 00:30 Blood Culture - Pending
Blood/Venous
07/25/24 06:47 MRSA Screen - Pending
Nose
07/25/[address]: Marked scrotal wall edema suggesting cellulitis. No subcutaneous gas identified to suggest Rustam's gangrene.
07/25/24 CXR: Mild to moderate CHF.
Assessment / Plan
# Scrotal cellulitis with necrotic tissue
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 To OR for I+D, per Urologist.
- Continue Vancomycin and Zosyn pending OR cx.
# Change in mental status
# Daily nitrous oxide use
# Former alcohol abuse
-Neuro and psych following
# New dx of DM2.
--- NOTE | 2024-07-25 13:50 | W.PN.UPDATE ---
Update Note
Progress Note Update
patient seen but only briefly. surgical team is here for i and d of scrotal lesion. he is refusing to talk to me until he sees 'a industrial maintenance electrician' he is also refusing to go to surgery until he talks to the industrial maintenance electrician. i told him i could get our piper installer but
she is not a industrial maintenance electrician. as the piper installer was en route he agreed to the surgery. she had seen him earlier today but he told her she was not really a piper installer. the patient had admitted to auditory and visual hallucinations and is clearly psychotic from
daily use of nitrous oxide which is a known effect of recurrent use of nitrous. i will be unable to complete this evaluation today as he will be anaesthetized but will see him in the am. leaving a prn of haldol 5 mg to be given iv (qtc is normal)
and ativan as well for agitation. i did query pharmacy re the issue of interacton between glucagon and haldol pharmacy was not of the opinion that this is not a contraindication.
--- NOTE | 2024-07-25 15:06 | W.IMMPOSTOP ---
Surgical Immed Post Op Note
-
Primary Surgeon: Deidre
Assisting Surgeon: none
Pre-op Diagnosis: Scrotal cellulitis, possible neville's gangrene
Post-op Diagnosis: Scrotal cellulitis
Procedure Performed: Scrotal exploration
Anesthesia Type: general
Specimen / Cultures: none
Estimated Blood Loss: 10cc
Complications: none
Operative Findings: Healthy skin with bleeding edges upon incision into region of greatest abnormality/fluctuance
No skin necrosis - regions of mottled or dark tissue were sloughing/exfoliation of epidermis with healthy tissue underneath
No infected fluid or abscess on scrotal exploration, just significant edema
[place] drain placed
[2024-07-25] MEDS: HALDOL 5 MG IV (15:19)
[2024-07-25] MEDS: SUBLIMAZE 50 MCG IV ×4 (15:27→21:06)
[2024-07-25] MEDS: VANCOCIN 200 IV ×2 (15:48→21:52)
--- NOTE | 2024-07-25 15:48 | CM ---
CM following re: discharge planning.
reviewed pt's chart, met with pt and spoke to pt's mother Genet over the phone.
Pt is a 29 year old male, admitted with primary dx of Scrotal cellulitis, s/p Scrotal exploration today. Pt is intubated, continue supportive care.
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
PCP: per mother pt does not have PCP.
Pharmacy: [facility].
D/C plan: uncertain at this time and will depend on pt's progress.
CM will follow with discharge plan updates as hospitalization progresses
--- NOTE | 2024-07-25 16:22 | CHAP ---
Asked by nurses to visit Conrad before his surgery. He was at first not accepting of oncology radiation physician services, but after receiving medication, he did welcome prayer. Emotional and spiritual support provided.
[2024-07-25 16:32] LABS: Venous Blood Gas B.E. 3.1 mmol/L (-4 to +4); Venous Blood Gas HCO3 31.5 mmol/L (22-27); Venous Blood Gas O2 Sat % 98.9 %; Venous Blood Gas pCO2 67 mmHg (35-48); Venous Blood Gas pH 7.28 (7.32-7.43); Venous Blood Gas pO2 212 mmHg (30-50)
[2024-07-25] MEDS: PRECEDEX 100 IV ×2 (16:50→21:51)
[2024-07-25 17:16] LABS: Procalcitonin < 0.05 ng/ml (0.0-0.25)
[2024-07-25] MEDS: THIAMINE INJECTION 255 MG IV ×2 (17:18→23:32)
[2024-07-25 17:35] LABS: Glucose - Point of Care 127 mg/dl (70-99)
--- NOTE | 2024-07-25 19:31 | PTCARENOTE ---
Pt returned from OR s/p scrotal exploration. Pt intubated. Able to follow simple commands. Squeezing hands PRN Fentanyl 50mcg IV x2 for CPOT 7. PRN Haldol 5mg IV given for agitation. Precedex gtt started @ 0.2 mcg/kg/hr. RASS to -1. CPOT 0. ETT #8 @
26cm to center lip. Pt successful with wean. VBG results informed decision to remain intubated. AC (22/450/50%/8+). Sinus rhythm/Sinus tach on playground monitor. HR 70s - 120s. Trace anasarcas. [place] drain in place in scrotum, leaking serous
fluid. Brambila draining yellow.
[2024-07-25] MEDS: SUBLIMAZE 100 IV (19:37)
[2024-07-25] MEDS: NSS (PRESERVATIVE FREE) 0.5 ML IV ×2 (19:45→21:15)
[2024-07-25] MEDS: FLUSH (NSS) 1 FLUSH IV (19:45)
--- NOTE | 2024-07-25 20:00 | PTCARENOTE ---
Pt received start of shift, HR SR/ST. Precedex infusing. On attempt to turn patient, patient became extremely agitated. 4 staff members in room restraining pt. Pt attempting to pull out ETT, chew ETT, sit up, and asynchronous with ventilator. Pt
diaphoretic. All therapeutic communication attempts unsuccessful. PRN fent bolus, PRN ativan - see AUG. Precedex gtt increased, fent gtt initiated at 50mcg - provider aware. ETT #8 @ 26cm at lip. Vent settings AC as follows: 22/450/50%/+8. Corneal
reflex present, gag reflex present. Pupils 3mm b/l, brisk reaction. Lungs b/l diminished. [place] drain draining large amount serous fluid from scrotum. Brambila draining yellow urine.
[2024-07-25] MEDS: ATIVAN 2 MG IV (21:15)
--- NOTE | 2024-07-25 21:20 | PTCARENOTE ---
Pt RASS +3/+4. Attempting to sit up in bed, chewing tube, pulling at restraints, kicking legs. PRN fent bolus, Fent gtt increased, prcedex gtt increased. Pt continuing to be extremely agitated and restless. Spoke w/ VALIDATION ANALYST Eunice Reece, ativan 2mg IV
STAT ordered and administered.
[2024-07-25 23:39] LABS: Glucose - Point of Care 147 mg/dl (70-99)
[2024-07-25] MEDS: OFIRMEV 100 IV (23:50)
[2024-07-26] VITALS (26 sets, daily range): BP systolic 135–182; BP diastolic 69–124; BMI 69.0
--- NOTE | 2024-07-26 | PTCARENOTE ---
Pt reassessed. Temp 101, ofirmev ordered and administered. [place] drain continues to drain moderate/large amount serous fluid from scrotum. Pt tolerating vent settings as mentioned in previous note. BP increasing, crackles now present in R base -
Lasix ordered and administered (see MAR). PRN fent bolus (see MAR). PRN hydralazine (see MAR). No further change in assessment.
[2024-07-26] MEDS: SUBLIMAZE 100 MCG IV ×9 (00:14→23:00)
[2024-07-26] MEDS: LASIX 20 MG IV ×2 (00:58→08:23)
[2024-07-26] MEDS: PRECEDEX 100 IV ×9 (01:22→23:24)
[2024-07-26] MEDS: APRESOLINE 10 MG IV ×3 (01:22→20:20)
[2024-07-26] MEDS: VERSED 5 MG IV ×5 (01:42→23:03)
--- NOTE | 2024-07-26 01:45 | PTCARENOTE ---
Addendum entered by Homero Angulo RN 07/26/24 01:57:
Endotracheal tube suction
Original Note:
On attempt to suction pt, pt became extremely agitated and started thrashing all limbs in bed while attempting to sit up and get to ETT. Asynchronous with vent. One time dose 5mg Versed ordered and administered, one time dose 100mcg fent bolus
ordered and administered.
Suction produced moderate amount of thin clear secretions.
[2024-07-26] MEDS: ZOSYN 50 IV ×2 (02:10→08:23)
[2024-07-26] MEDS: ATIVAN 2 MG IV ×2 (04:13→11:47)
[2024-07-26] MEDS: NSS (PRESERVATIVE FREE) 1 ML IV (04:14)
[2024-07-26 04:44] LABS: HCO3 30.5 mmol/L (21-28); PCO2 54 mmHg (35-48); PO2 79 mmHg (83-108); pH 7.36 (7.35-7.45)
[2024-07-26] MEDS: VANCOCIN 200 IV (05:09)
[2024-07-26 05:25] LABS: Glucose - Point of Care 126 mg/dl (70-99)
--- NOTE | 2024-07-26 05:49 | PTCARENOTE ---
Pt continues to be asynchronous with vent most times pt is interacted with. Pt tries to sit up while thrashing limbs and attempting to tongue the bite block + ETT out of mouth. PRN fent boluses - see AUG. Fent gtt and precedex gtts increased. When
pt is agitated and thrashing, pt becomes diaphoretic. Scrotal sydni continuing to drain serous fluid. Size of scrotum has significantly decreased since start of shift.
[2024-07-26] MEDS: SUBLIMAZE 100 IV ×3 (06:12→22:44)
[2024-07-26 06:59] LABS: % Basophils 0.1 % (0-2); % Eosinophils 0.1 % (0-6); % Immature Granulocytes 1.2 % (0-0.5); % Lymphocytes 23.3 % (20.5-51.1); % Monocytes 15.7 % (1.7-9.3); % Neutrophils 59.6 % (42.2-75.2); Absolute Immature Granulocytes 0.1 10^3/uL (0-0.05); Absolute Lymphocytes 1.6 10^3/uL (1.2-3.4); Absolute Monocytes 1.1 10^3/uL (0.1-0.6); Absolute Neutrophils 4.1 10^3/uL (1.4-6.5); Hematocrit 35.8 % (39.0-52.0); Hemoglobin 11.6 g/dL (13.0-18.0); Mean Corp Hgb Conc. 32.4 g/dL (33.0-37.0); Mean Corpuscular Hgb 30.1 pg (27.0-31.0); Mean Corpuscular Volume 92.7 fL (80.0-94.0); Mean Platelet Volume 9.8 fL (7.4-10.4); Nucleated Red Blood Cells % 0 % (-); Platelet Count 330 10^3/uL (130-400); Red Blood Cell Count 3.86 10^6/uL (4.70-6.10); Red Cell Dist. Width 18.3 % (11.5-14.5); White Blood Cell Count 6.8 10^3/uL (4.8-10.8)
[2024-07-26 07:30] LABS: ALT (SGPT) 42 U/L (0-50); AST (SGOT) 34 U/L (17-59); Albumin 3.8 g/dl (3.5-5.0); Alkaline Phosphatase 53 U/L (38-126); Blood Urea Nitrogen 12 mg/dl (9-20); Calcium 8.1 mg/dl (8.4-10.2); Carbon Dioxide 30 mmol/L (22-30); Chloride 101 mmol/L (98-107); Creatine Phosphokinase 215 U/L (55-170); Direct Bilirubin 0.2 mg/dl (0.0-0.4); Estimated Creatinine Clearance > 125 ml/min; Glucose 120 mg/dl (70-99); Iron 61 ug/dl (49-181); Magnesium 2.1 mg/dl (1.6-2.3); Phosphorus 3.8 mg/dl (2.5-4.5); Potassium 4.6 mmol/L (3.5-5.1); Sodium 143 mmol/L (135-145); Total Bilirubin 0.5 mg/dl (0.2-1.3); Total Protein 6.9 g/dl (6.3-8.2); eGFR > 60.00
[2024-07-26 07:39] LABS: Percent Saturation 18 % (20-50); Total Iron Binding Capacity 333 ug/dl (261-462)
[2024-07-26 08:00] LABS: Ferritin 74.8 ng/ml (17.9-464.0)
[2024-07-26] MEDS: THIAMINE INJECTION 255 MG IV ×3 (08:08→23:24)
--- NOTE | 2024-07-26 08:10 | W.PN.INTV ---
Today's Communication / Plan
Recommendations
Mechanical ventilation
Need to control agitation and hallucinations before SAT/SBT can safely be done
Start Seroquel
Psych on board
Goal RASS 0 to -2
Antibiotics per ID
Follow-up cultures
Urology following s/p scrotal exploration
Thiamine + folate
Trial of diuresis
Monitor for fevers and trend WBC
Continue ICU level care for this critically ill patient
Assessment
-
Assessment: 29-year-old male with a past medical history of hypertension, history of alcohol abuse, MATT not yet started on treatment, newly diagnosed DM type II (as per patient), and chronic lipid abuse who presents with testicular pain and
swelling. He was at [facility] prior to arrival and was apparently agitated they are requiring Precedex, and then he ended up leaving [facility] as he was unhappy with their care, although he was reportedly treated with IV antibiotics and topical
therapy for his scrotal infection. He was having hallucinations upon arrival here to [facility]. He said he has been having this scrotal swelling and redness for about 6 months, with progressively worsening pain, swelling and redness
over the last 3-4 weeks. It has been causing difficulty walking around due to discomfort and swelling. Initially in the ER he was afebrile to 99.8 �F, tachycardic to 114, respiratory rate 24, BP 189/120, and saturating 94% on room air. Initial
labs showed normal WBC at 7.5, Hb 11.3, lactate WNL at 1.6, CK4 3, urinalysis with trace leukocyte esterase, UDS positive for benzodiazepines, and marijuana. Beta hydroxybutyrate was elevated at 1.97 and he had +1 ketones in his urine. Of note his
serum bicarbonate level was normal at 23 and his anion gap was 15. Blood cultures were collected. Pelvic CT showed marked scrotal wall edema suggesting cellulitis with no subcutaneous gas to suggest Rustam's gangrene. CXR showed concern for
mild�moderate CHF. Of note prior stress echo in March 2021 showed an estimated EF of 55 to 60% with a normal stress echo and normal hemodynamic response to exercise. In the ER he was given 1 L NS 0.9%, IV vancomycin/Zosyn, 1 mg Ativan and
Folvite. 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
Chronic conditions PAEDIATRICIAN: Hypertension, morbid obesity, history of alcohol abuse, MATT not yet started on treatment, DM type II (recently diagnosed as per patient)
Impression:
#Severe scrotal cellulitis without subcutaneous gas to suggest Rustam's gangrene s/p scrotal exploration (OR day: 07/25/2024)
#Ventilator dependent respiratory failure (came back intubated from the OR on 07/25/2024)
#Acute psychosis/altered mental status likely due to his longstanding Whippet abuse
#Acute respiratory failure with hypoxia and hypercapnia
#Newly diagnosed DM type II (per patient) � HbA1c: 7.1 on 07/25/2024
#Very severe morbid obesity
#Newly diagnosed MATT not yet started on treatment (per patient)
#Anemia
#Elevated beta hydroxybutyrate with +1 urine ketones and anion gap of 15 � not consistent with DKA and likely due to starvation ketoacidosis (mild)
#Elevated CK likely due to his severe scrotal cellulitis
#Abnormal urinalysis with trace leukocyte esterase
Plan:
- Patient recently mated to [facility] for worsening redness, pain and swelling of his scrotum, diagnosed with scrotal cellulitis and started on IV antibiotics, however he left AMA
- Pelvic CT here shows some scrotal cellulitis without any concerning signs of Rustam's gangrene
- He went to the OR with urology on 07/25/2024 for a scrotal exploration, showing no signs of Rustam's gangrene. Giselle drain placed
- Continue with broad-spectrum antibiotics with Ancef s/p IV vancomycin + Zosyn
- Infectious disease + urology consulted and recs appreciated
- Pain control
- Procalcitonin: <0.05
- Wound care
- Follow up blood Cx X2 (collected 07/25/2024 - shows NGTD)
- No longer need to continue trending CK as it is now <250
- Continue mechanical ventilation with daily SAT/SBT if clinically appropriate
- Need to get his agitation and hallucinations under control before SAT can occur safely
- Titrate FiO2 + PEEP to maintain SaO2 >90%
- Maintain plateau pressure <30
- Oropharyngeal + deep ETT suctioning as needed
- Restraints while intubated for protective intervention
- Aspiration precautions
- CXR from 07/26/2024 shows left base haziness, likely due to atelectasis versus pneumonia versus edema - continue to monitor. He is already being diuresed and on antibiotics per ID
- Monitor for fevers and trend WBC
- He continues to have hallucinations with extreme agitation and combativeness, sitting up in bed while intubated and not being redirectable
- I will start him on Seroquel 50 mg BID to see if this helps calm him down; trend QTc
- Psychiatry consulted and recommendations appreciated
- He has a history of alcohol abuse and unclear if he has continued to use, and given his acute confusion, thiamine started continue with folic acid
- Neurology consulted as well due to his altered mental status, recs appreciated
- As of this morning, he is sleepy but alert and oriented x 3 and does not appear to be having psychosis or having hallucination; continue to monitor
- Given his reported history of newly diagnosed MATT, once extubated he should use BiPAP with sleep and we can see him in the office for additional management otherwise he can see his original doctor that worked him up for MATT initially
- Recommend extubating to BiPAP once he is ready for extubation
- Given his slightly elevated urine ketones with slightly elevated anion gap with increased beta hydroxybutyrate, this is more consistent with starvation ketosis/ketoacidosis and not consistent with DKA
- Continue to trend BMP and BOHB --> serum bicarbonate level today is 30, hence no need for Tx of starvation ketosis/ketoacidosis
- Blood gas on 07/25/2024 showed a pH of 7.38 - this is not consistent with DKA
- Maintain SpO2 >90-94% and wean down supplemental oxygen as tolerated
- Start trial of diuresis
- BNP 257 on 07/25/2024; check echo
- Maintain MAP>65
- Replete electrolytes with K>4, Mg>2
- Maintain euglycemia with goal BG 140-180
- Trend H/H and transfuse if needed to keep Hb>7g/dL; keep plt>20k, unless there is concern for bleeding then keep plt>50k
- prn nebulized bronchodilators - not currently bronchospastic
- Incentive spirometer encouraged 10x per hour for at least 4 hrs a day
- DVT ppx: LMWH
Continue ICU level of care for this critically ill patient.
Critical care statement: A total of 43 minutes of critical care time was provided for this patient today. This includes management of unstable vital signs, evaluation of the patient at bedside, reviewing the patient's pertinent medical records
including radiographs, microbiology, laboratory evaluations, and discussion with primary team, consultants, pharmacy, nutrition, physical therapy, case management, charge nurse, critical care nursing, and respiratory therapy.
Data:
Pelvic CT with IV contrast 07/25/2024:
Marked scrotal wall edema suggesting cellulitis. No subcutaneous gas identified to suggest Rustam's gangrene. Clinical correlation is needed, however.
Limited evaluation of pelvic viscera is grossly unremarkable. Urinary bladder is decompressed around a Brambila catheter and not well evaluated. Normal appendix.
Visualized osseous structures are unremarkable. Evaluation of additional soft tissue structures such as ligaments and tendons is limited by CT. Grossly, no abnormalities noted.
CXR 07/25/2024: Mild to moderate CHF.
CXR 07/26/2024: Low inspiratory volumes. Suspected pulmonary vascular congestion; hazy opacity at the left lung base, which may represent subsegmental atelectasis, pneumonia, or alveolar pulmonary edema.
Subjective Dataa
Subjective Data
Date of Service:
Date of Service: July 26, 2024
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
Subjective:
Patient seen this morning. Went to OR yesterday for scrotal exploration and came back intubated. He was very agitated overnight requiring several pushes of fentanyl. He continues to remain agitated and tried to sit up out of bed and is trying to
bite through the tube, not redirectable and not following commands although when he is more calm and more sedated he does have periods where he follows commands. Currently intubated on AC/CMV 18/450/50%/5 with PIP: 24 cmH2O, VTe 439cc and breathing
at 18 breaths/min. End-tidal CO2: 41. Heart rate 75, BP 164/102 and SpO2 96%. Currently sedated on 0.8mcg/kg/hr of Precedex and 125mcg/hr of fentanyl drip.
Review of Systems
General: Unobtainable - Sedation
Objective Data
Data Reviewed
Vital Signs / I&O / Oxygen:
Vital Signs
Temp Pulse Resp BP Pulse Ox
100.9 F H 77 22 155/78 95
07/26/24 07:00 07/26/24 06:15 07/26/24 06:15 07/26/24 06:00 07/26/24 08:26
Intake and Output
07/25/24 07/26/24 07/27/24
06:59 06:59 06:59
Intake Total 1305.8 / 1357.8 404.0 / 404.0
Output Total 2049 6325 / 6325
Balance -2049 / -2049 -5019.2 / -4967.2 404.0 / 404.0
SaO2 [CPAP/PSV] 95
SaO2 [A/C] 95
SaO2 95
Nasal Cannula flow liters per 2
minute
Physical Exam
General: Respiratory Distress (negative), Chills (negative) and Sweats (negative)
HEENT: Normocephalic, Anicteric and Other (Thick neck)
Cardiovascular: S1-S2, Murmur (negative) and Peripheral Edema (Trace lower extremity edema bilaterally)
Respiratory: Wheeze (negative), Crackles (negative), Rhonchi (negative), Non-Labored Respirations, Stridor (negative) and ET Tube (Mechanical breath sounds heard bilaterally)
GI: Soft, Distended (Significant abdominal obesity), Non Tender and Normal Bowel Sounds
Neurology: Tremors (negative) and Other (Pupils 2 mm bilaterally and sluggish; sedated with periods of agitation and combativeness; when calm and sedated he occasionally follows commands)
Skin: Warm, Dry, Cyanosis (negative) and Jaundice (negative)
Labs/Micro/Reports
Lab Data
07/26/24 03:48
07/26/24 03:48
Laboratory Results
07/26/24
04:30
pH 7.36
pCO2 54 H
pO2 79 L
HCO3 30.5 H
O2 Delivery Level
Microbiology
07/25/24 06:47 Nose MRSA Screen - Final
No Methicillin Resistant Staphylococcus aureus isolated.
07/25/24 00:31 Blood/Venous Blood Culture - Preliminary
No Growth in 24 hours- Final report to follow
07/25/24 00:30 Blood/Venous Blood Culture - Preliminary
No Growth in 24 hours- Final report to follow
[2024-07-26] MEDS: MIRALAX TUBE (08:11)
[2024-07-26] MEDS: OFIRMEV 100 IV ×2 (08:22→19:32)
[2024-07-26] MEDS: CYANOCOBALAMIN 1000 MCG IM (08:23)
--- NOTE | 2024-07-26 08:29 | PHA.VAN.FU ---
Vancomycin Assessment / Plan
- Assessment
Renal Function: Stable
WBC's are: WNL
In the past 24 hrs, patient has been: Febrile (101F)
Concomitant Antimicrobials: ZOSYN
- Dosing Plan
Continue: 1000MG Q8H
- Monitoring Plan
Peak Level: 07/27 @0030
Trough Level: 07/27 @0530
- Follow Up
Pharmacy will continue to follow.
Vancomycin Follow UP
- -
Patient Age: 29
Patient Sex: Male
Vancomycin Day #: 2
Indication: Skin And Soft Tissue
Requesting Provider: Dr. Fry
Pertinent Antimicrobial Allergies:
nkda
Height / Weight:
Height 5 ft 10 in
Actual Weight 217.996 kg
IBW in k
- Vital Signs / Lab Results
Temp Pulse Resp BP Pulse Ox
100.9 F H 77 22 155/78 93
07/26/24 07:00 07/26/24 06:15 07/26/24 06:15 07/26/24 06:00 07/26/24 06:15
Lab Results - Hematology
07/25/24 07/25/24 07/26/24
00:15 06:00 03:48
WBC 7.5 Cancelled 6.8
Lab Results - Chemistry
07/25/24 07/25/24 07/26/24
00:15 06:00 03:48
BUN 16 Cancelled 12
Creatinine 0.9 Cancelled 0.9
Estimated Creat Clear > 125 Cancelled > 125
Albumin 3.7 Cancelled 3.8
07/25/24 07/25/24
00:15 04:15
Lactic Acid 1.6 Cancelled
Microbiology Results
07/25/24 00:31 Blood Culture - Preliminary
Blood/Venous No Growth in 24 hours- Final report to follow
07/25/24 00:30 Blood Culture - Preliminary
Blood/Venous No Growth in 24 hours- Final report to follow
[2024-07-26 08:31] LABS: Folate 17.9 ng/ml (2.76-20); Vitamin B12 > 1000 pg/ml (239-931)
--- NOTE | 2024-07-26 08:33 | W.PN.NEURO.1 ---
Today's Communication / Plan
-
Agree with psychiatry evaluation and treatment
Continue thiamine replacement
Neuro Assessment/Plan
Assessment
Abrupt onset hallucinations with prior history of EtOH abuse and nitrous oxide
Plan
Agree with psychiatry evaluation and treatment
Continue thiamine replacement
Please call if additional questions or issues
Subjective/Objective
Subjective Data
Date of Service: July 26, 2024
Objective Data
Vital Signs
Temp Pulse Resp BP Pulse Ox
38.3 C H 77 22 155/78 93
07/26/24 07:00 07/26/24 06:15 07/26/24 06:15 07/26/24 06:00 07/26/24 06:15
Lab Results
07/26/24 03:48
07/26/24 03:48
PT 15.0 Sec (11.4-14.6) H 07/25/24 06:47
INR 1.15 07/25/24 06:47
APTT 31.1 Sec (23.4-35.0) 07/25/24 06:47
Sodium 143 mmol/L (135-145) 07/26/24 03:48
Potassium 4.6 mmol/L (3.5-5.1) 07/26/24 03:48
BUN 12 mg/dl (9-20) 07/26/24 03:48
Glucose 120 mg/dl (70-99) H 07/26/24 03:48
Calcium 8.1 mg/dl (8.4-10.2) L 07/26/24 03:48
Phosphorus 3.8 mg/dl (2.5-4.5) 07/26/24 03:48
Kss-Y-Lkkzhzjzzxa Pept 257 pg/ml 07/25/24 06:47
Vitamin B12 > 1000 pg/ml (239-931) H 07/26/24 03:48
Ur Buprenorphine Negative (Negative) 07/25/24 00:15
Patient Allergies
No Known Allergies Allergy (Verified 03/17/21 13:42)
Past History
Past History
ED Past Medical History: NIDDM and Other (scrotal cellulitis)
ED Past Surgical History: Orthopedic (Right wrist surgery, right ankle surgery, knee arthroscopy)
Social History
Alcohol: Binge drinker (Alcohol abuse listed in outpatient record)
Drug: Other (nitrous oxide daily use)
Family History
Family History: Other (reviewed and non-contributory)
Medications
-
Medications:
Generic Name Dose Route Start Last Admin
Trade Name Freq PRN Reason Stop Dose Admin
Acetaminophen 650 mg 07/25/24 05:59
Acetaminophen 325 Mg Tablet PO 08/22/24 05:58
Q4HPRN PRN
Mild Pain / Temp > 101
Cyanocobalamin 1,000 mcg 07/25/24 08:00 07/25/24 08:13
Cyanocobalamin (1000 Mcg/Ml) 1 Ml Vial IM 08/22/24 07:59 1,000 mcg
DAILY JORDYN Administration
Dextrose 12.5 grams 07/25/24 05:59
Dextrose 50% (0.5 Grams/Ml) 50 Ml Syringe IV 08/22/24 05:58
[id number] PRN
hypoglycemia
Protocol
Enoxaparin Sodium 60 mg 07/25/24 08:00 07/25/24 19:46
Enoxaparin Sodium 60 Mg/0.6 Ml Syringe SC 08/22/24 07:59 60 mg
BID JORDYN Administration
Fentanyl Citrate 100 mcg 07/25/24 21:11 07/26/24 05:30
Fentanyl (50 Mcg/Ml) 100 Mcg/2 Ml Ampul IV 08/08/24 15:19 100 mcg
[id number] PRN Administration
see protocol
Protocol
Folic Acid 1 mg 07/26/24 08:00
Folic Acid 1 Mg Tablet PO 08/23/24 07:59
DAILY JORDYN
Furosemide 20 mg 07/25/24 08:00 07/25/24 08:05
Furosemide 20 Mg (10 Mg/Ml) 2 Ml Vial IV 08/22/24 07:59 20 mg
DAILY JORDYN Administration
Glucagon 1 mg 07/25/24 05:59
Glucagon 1 Mg Vial IM 08/22/24 05:58
PRN PRN
hypoglycemia
Protocol
Haloperidol Lactate 5 mg 07/25/24 13:57 07/25/24 15:19
Haloperidol 5 Mg/Ml 1 Ml Vial IV 08/22/24 13:56 5 mg
Q8HPRN PRN Administration
agitation
Hydralazine HCl 10 mg 07/26/24 00:35 07/26/24 05:22
Hydralazine 20 Mg/Ml Vial IV 08/23/24 00:34 10 mg
Q4HPRN PRN Administration
SBP>140
Piperacillin Sod/Tazobactam Sod 3.375 gram in 50 mls @ 100 mls/hr 07/25/24 08:00 07/26/24 02:10
Zosyn IV 50 mls
Q6H JORDYN Administration
Vancomycin HCl 1 gram in 200 mls @ 200 mls/hr 07/25/24 14:00 07/26/24 05:09
Vancocin IV 200 mls
Q8H JORDYN Administration
Thiamine HCl 500 mg/ Sodium 255 mls @ 255 mls/hr 07/25/24 16:00 07/25/24 23:32
Chloride IV 08/22/24 15:59 255 mls
Q8 JORDYN Administration
Fentanyl Citrate 1,000 mcg in 100 mls @ 0 mls/hr 07/25/24 15:30 07/26/24 06:12
Sublimaze IV 100 mls
PER PROTOCOL JORDYN Administration
Protocol
Per Protocol
Dexmedetomidine HCl 400 mcg in 100 mls @ 0 mls/hr 07/25/24 16:15 07/26/24 06:37
Precedex IV 100 mls
PER PROTOCOL JORDYN Administration
Protocol
Per Protocol
Acetaminophen 1,000 mg in 100 mls @ 400 mls/hr 07/25/24 23:31 07/25/24 23:50
Ofirmev IV 07/26/24 23:30 100 mls
Q6HPRN PRN Administration
fever>100.3/mild pain
Protocol
Insulin Aspart 0 units 07/26/24 00:00 07/26/24 05:31
Insulin Aspart Low Resistance 300 Units/3 Ml Pen.Injctr SC 08/23/24 00:00 Not Given
Q6 JORDYN
Protocol
Lorazepam 2 mg 07/26/24 01:00 07/26/24 04:13
Lorazepam 2 Mg/Ml Vial IV 08/23/24 00:59 2 mg
Q4HPRN PRN Administration
Agitation / Anxiety
Miconazole Nitrate 0 applic 07/26/24 08:28
Miconazole Powder Bottle TOPICAL 08/23/24 08:27
BID JORDYN
Polyethylene Glycol 17 grams 07/26/24 08:00
Polyethylene Glycol Powder 17 Grams Packet TUBE 08/23/24 07:59
DAILY JORDYN
Sodium Chloride 0 flush 07/25/24 07:00 07/25/24 19:45
Sodium Chloride 0.9% (Flush) Syringe IV 08/22/24 06:59 1 flush
PER PROTOCOL JORDYN Administration
Sodium Chloride 0.5 ml 07/25/24 06:41 07/25/24 21:15
Nss (Pf) 10 Ml Vial For Ativan 1 Mg Dose IV 08/22/24 06:40 0.5 ml
Q4HPRN PRN Administration
IV LORAZEPAM DILUTION
Sodium Chloride 0.5 ml 07/25/24 12:38
Sodium Chloride 0.9% (Preservative Free) 10 Ml Vial IV 08/22/24 12:37
ONCE PRN PRN
Agitation for CT head
Sodium Chloride 1 ml 07/26/24 02:25 07/26/24 04:14
Nss (Pf) 10 Ml Vial For Ativan 2 Mg Dose IV 08/23/24 02:24 1 ml
Q4HPRN PRN Administration
IV LORAZEPAM DILUTION
[2024-07-26] MEDS: LOVENOX 60 MG SC ×2 (08:40→19:36)
[2024-07-26] MEDS: FOLVITE PO (08:40)
[2024-07-26] MEDS: DESENEX/MITRAZOL/ZEASORB 1 APPLIC TOPICAL ×2 (09:20→19:38)
[2024-07-26] MEDS: LASIX 40 MG IV (09:55)
--- NOTE | 2024-07-26 10:00 | PTCARENOTE ---
Pt received in bed @ 0700. Intubated and sedated. Fentanyl gtt infusing @ 125 mcg/hr. Precedex gtt infusing @ 0.8 mcg/kg/hr. Startles to stimuli. Thrashing and dyssynchronous with vent. CPOT 7, Fentanyl bolus administered with (+) effect. CPOT down
to 0. Pt able to follow simple commands. Squeezes hand when asked. Nods to questions. Sinus rhythm on casework supervisor. HR 70s - 80s at rest. HR to 120s with agitation. +1 anasarca. Lasix 40mg IV administered. Palpable pulses. ETT #8 @ 26 cm to
left lip. AC (22/450/50%/8+). SaO2 94%. Abdomen round, full, distended. No bowel movement observed. Brambila catheter draining yellow urine.
--- NOTE | 2024-07-26 10:56 | W.PN.ID1 ---
Date of Service
Date of Service: July 26, 2024
Today's Communication
Narrow abx's to cefazolin.
Assessment / Plan
# Scrotal cellulitis
- 07/25/24 s/p OR scrotal exploration without findings of Rustam's
- Narrow Vancomycin, Zosyn to cefazolin.
# Fever
- Postop fever vs drug fever (precedex)
- Blood cx's neg to date
- Follow temps.
# Change in mental status
# Daily nitrous oxide use
# Former alcohol abuse
-Neuro and psych following
# New dx of DM2.
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
Diabetes mellitus
Class III obesity BMI 62
MATT
Past Hx Substance abuse (Valium)
Right hand ORIF
Right Ankle Surgery
Knee Arthroscopy
Chief Complaint
-: Cellulitis (scrotum)
Subjective / Review of Systems
Intubated
Vital Signs / Physical Exam
Vital Signs
Vital Signs
Temp Pulse Resp BP Pulse Ox
100.9 F H 77 22 155/78 95
07/26/24 07:00 07/26/24 06:15 07/26/24 06:15 07/26/24 06:00 07/26/24 08:26
Selected Entries
07/25/24
23:21 07/26/24
07:00
Temp 101.0 F H 100.9 F H
Physical Exam
Constitutional: Obese
Cardiovascular: Regular Rate and S1/S2
Pulmonary: Clear (anteriorly)
Gastrointestinal: Soft, Non Tender and Non Distended
Extremities: Edema
Objective Data
Lab Data
Lab Results
07/26/24 03:48
07/26/24 03:48
PT 15.0 Sec (11.4-14.6) H 07/25/24 06:47
INR 1.15 07/25/24 06:47
APTT 31.1 Sec (23.4-35.0) 07/25/24 06:47
Estimated Creat Clear > 125 ml/min 07/26/24 03:48
Lactic Acid Cancelled 07/25/24 04:15
Total Bilirubin 0.5 mg/dl (0.2-1.3) 07/26/24 03:48
AST 34 U/L (17-59) 07/26/24 03:48
ALT 42 U/L (0-50) 07/26/24 03:48
Alkaline Phosphatase 53 U/L (38-126) 07/26/24 03:48
Most recent labs reviewed.
Micro Results:
07/25/24 06:47 MRSA Screen - Final
Nose No Methicillin Resistant Staphylococcus aureus isolated.
07/25/24 00:31 Blood Culture - Preliminary
Blood/Venous No Growth in 24 hours- Final report to follow
07/25/24 00:30 Blood Culture - Preliminary
Blood/Venous No Growth in 24 hours- Final report to follow
07/25/[address]: Marked scrotal wall edema suggesting cellulitis. No subcutaneous gas identified to suggest Rustam's gangrene.
07/25/24 CXR: Mild to moderate CHF.
--- NOTE | 2024-07-26 11:32 | W.PN.ANS.POP ---
Anesthesia Post Operative
- Anesthesia Post Op Note
Vital Signs Stable-See Nursing Note: Yes
Airway Patent: Yes
Adequate Pain Control: Yes
Change in Mental Status: No (extremely agitated)
Current Postoperative Nausea & Vomiting: No
Anesthesia Complications: No
General Anesthetic Recall: No
Unplanned Admission: No
Post Op Hydration Adequate: Yes
--- NOTE | 2024-07-26 11:41 | W.PN.HOSP.TC ---
Today's Communication/Plan
-
noted switch to ancef
added insulin
Echo
Assessment / Plan
Assessment / Plan
29yo M with apparent PMHX of DM, morbidly obese, N2O abuse came after he left AMA from [facility] (did not like how he was treated there), where he was treated for scrotal infection. He had inflammation in his private area for a long time now. CT showed
scrotal cellulitis, concern for initial stages of Rustam gangrene. Also apparently had episodes of hallucinations in [facility] treated with precedex drip and Ativan. Also new onset DM
A/P
#Scrotal cellulitis with sepsis (fever, hallucinations)
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
Bcx NTD
Urology con: s/p scrotal exploration on 07/25/24 - found cellulitis only, intubated after procedure due to possible withdrawal
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
Sedation
ID consult: switched to Ancef on 07/26/24
Brambila
#Acute hypoxic respiratory failure 2/2 pulmonary edema
lasix
echo
#DM type 2, with unspecified complications
Accuchecks, insulin SS, DM diet
HgbA1c
#Hallucinations
#hx of alcohol abuse
N2O withdrawal vs 2/2 sepsis
Thiamine/Folate
MSAS when extubated
Neuro and psych eval
Head CT without acute findings
Haldol PRN
#Morbid obesity
BMI 62.4
decrease calorie intake
#new diagnosis of DM
Accuchekcs, insulin SS, DM diet
d/c with oral hypoglycemics as HgbA1c 7.1%
#GERD
cont PPI
DVT ppx hep
full code
I have spent at least 59min reviewing chart, test results, communication with consultants anddirect patient care
Anticipated Discharge: > 48 hours
Subjective/Interval History
-
Date of Service: July 26, 2024
Objective Data
-
Labs:
Laboratory Results
07/26/24 07/26/24
03:48 04:30
WBC 6.8
Hgb 11.6 L
Hct 35.8 L
Plt Count 330
HCO3 30.5 H
Sodium 143
Potassium 4.6
Chloride 101
Carbon Dioxide 30
BUN 12
Creatinine 0.9
Glucose 120 H
Calcium 8.1 L
Total Bilirubin 0.5
AST 34
ALT 42
Alkaline Phosphatase 53
Vital Signs:
Vital Signs
Temp Pulse Resp BP Pulse Ox
100.9 F H 77 22 155/78 96
07/26/24 11:00 07/26/24 06:15 07/26/24 06:15 07/26/24 06:00 07/26/24 11:21
I&O
07/25/24 07/26/24 07/27/24
06:59 06:59 06:59
Intake Total 1305.8 / 1357.8 608.0 / 608.0
Output Total 2049 6325 / 6325 800 / 800
Balance -2049 / -2049 -5019.2 / -4967.2 -192.0 / -192.0
Review of Systems
-
Unable to obtain full review of systems at this time due to: Patient Intubation
Physical Exam
-
General: Intubated
Respiratory: Clear to Auscultation
Cardiac: Regular Rhythm
GI: Soft
Genito-urinary: Brambila and Other (scrotal drain)
Neuro: Sedated
[2024-07-26] MEDS: HALDOL 5 MG IV (11:48)
[2024-07-26 11:58] LABS: Glucose - Point of Care 119 mg/dl (70-99)
--- NOTE | 2024-07-26 12:35 | W.PN.URO.CBU ---
Today's Communication / Plan
-
- Continue antibiotics for cellulitis per ID
- Elevate scrotum as able to help decrease edema
- Maintain sydni drain for now
- Daily wound checks
Assessment / Plan
-
29M with morbid obesity, new diagnosis of diabetes, polysubstance abuse, with severe scrotal cellulitis
Presented after 3 days at [facility] with IV antibiotics and no improvement
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
now s/p scrotal exploration 07/25
Findings: Healthy skin with bleeding edges upon incision into region of greatest abnormality/fluctuance at anterior scrotum
No skin necrosis - regions of mottled or dark tissue were sloughing/exfoliation of epidermis with healthy bleeding tissue underneath
No infected fluid or abscess on scrotal exploration, just significant edema
- Continue antibiotics for cellulitis per ID
- Elevate scrotum as able to help decrease edema
- Maintain sydni drain for now
- Daily wound checks
Diagnosis
-
Date of Service: July 26, 2024
-
Patient Diagnosis:
Scrotal cellulitis
Sepsis
Polysubstance abuse
Diabetes
Morbid obesity
Post Op Day:
Subjective
-
Intubated
Objective
-
Vital Signs
Temp Pulse Resp BP Pulse Ox
100.9 F H 77 22 155/78 96
07/26/24 11:00 07/26/24 06:15 07/26/24 06:15 07/26/24 06:00 07/26/24 11:21
Intake and Output
07/25/24 07/26/24 07/27/24
06:59 06:59 06:59
Intake Total 1305.8 / 1357.8 608.0 / 608.0
Output Total 2049 6325 / 6325 800 / 800
Balance -2049 / -2049 -5019.2 / -4967.2 -192.0 / -192.0
Intake:
IV fluids (Total) 400.8 / 452.8 208.0 / 208.0
Fentanyl 85.0 / 97.5 50.0 / 50.0
Precedex 315.8 / 355.3 158.0 / 158.0
IV piggybacks 905 / 905 400 / 400
Output:
Urine, Brambila 2049 6325 / 6325 800 / 800
Laboratory Results
07/26/24 03:48
07/26/24 03:48
Physical Exam
-
General - well developed, morbidly obese, intubated
Chest - intubated
Abdomen - soft, non-tender
- decreased scrotal edema with drain in place
Skin surrounding incision site has persistent mottled appearance superficially, unchanged
Sydni drain with clear drainage
Groin erythema similar
[2024-07-26] MEDS: DIPRIVAN 100 IV ×4 (13:09→22:27)
[2024-07-26] MEDS: SEROQUEL 50 MG PO ×2 (13:17→19:38)
--- NOTE | 2024-07-26 13:50 | W.PN.UPDATE ---
Update Note
Progress Note Update
unable to do psychatric evaluation. patient intubated since surgery yesterday. spoke with mother to offer support. spoke w nursing. patient has required haldol prn but is currently resting comfortably.noted enamel machine operator added serqouel 50 mg bid.
psych will try again tomorrow to see patient
--- NOTE | 2024-07-26 13:53 | PTCARENOTE ---
Pt reassessed. Failed SBT. Pt became tachycardic to 130s. RR 40s. Thrashing in bed. Unable to follow any commands. Attempting to throw self over the side of the bed. Pt in B/L soft limb restraints. Bed lifting from ground as a result of thrashing
and jumping. PRN Haldol, Ativan, Fentanyl, and Versed administered. Fentanyl gtt @ 125 mcg/hr. Placed back on AC (18/450/50%/8+). OGT placed and confirmed XR. Seroquel administered via tube. PRNs briefly adequate before increase in agitation again,
thrashing and attempting to exit bed. New order for Propofol started @ 20 mcg/kg/min.
[2024-07-26] MEDS: ANCEF 10 IV ×2 (14:39→21:07)
[2024-07-26 14:52] LABS: Triglycerides 235 mg/dl (10-149)
[2024-07-26 17:42] LABS: Glucose - Point of Care 117 mg/dl (70-99)
--- NOTE | 2024-07-26 20:00 | PTCARENOTE ---
Rec'd pt w/ wrists restrained for pt safety, fent gtt at 125mic, precedexz gtt at 0.8, diprivan gtt at 20mic, SR, weak pulses, + srotal edema, sydni draining serous liquid,#8 oral ett- 26cm- moved to left side mouth, ac 18, tv 450, 8 peep, 50%,
lungs decr, sat 97, hypo bowel sounds, no bm, abd obese, oral [place] to low inter suction draining green, irrigated q4hr w/ tap h20, stovall draining abraham urine
--- NOTE | 2024-07-26 20:21 | PTCARENOTE ---
apresoline 10mg iv given for bp
--- NOTE | 2024-07-26 20:45 | PTCARENOTE ---
fio2 decr to 40% by resp therapist
--- NOTE | 2024-07-26 22:25 | PTCARENOTE ---
vss filed from 141 , unable to verify validity
--- NOTE | 2024-07-26 23:00 | PTCARENOTE ---
awake, attempting to pull tube, extremely restless,biting ett. oral airway inserted; fent 100mic Iv, versed 5 mg iv given
[2024-07-26 23:45] LABS: Glucose - Point of Care 108 mg/dl (70-99)
[2024-07-27] VITALS (24 sets, daily range): BP systolic 116–153; BP diastolic 57–90; BMI 68.7
--- NOTE | 2024-07-27 | PTCARENOTE ---
Addendum entered by Darby Almaguer RN 07/27/24 01:40:
CHG bath done, linens changed
Original Note:
sys reviewed, ett repos & retaped by resp therapist
[2024-07-27] MEDS: DIPRIVAN 100 IV ×12 (00:54→23:12)
[2024-07-27] MEDS: PRECEDEX 100 IV ×6 (01:06→12:19)
[2024-07-27] MEDS: APRESOLINE 10 MG IV ×2 (02:04→06:04)
[2024-07-27] MEDS: OFIRMEV 100 IV (02:04)
--- NOTE | 2024-07-27 02:07 | PTCARENOTE ---
apres 10 mg iv given for bp
[2024-07-27 03:45] LABS: % Basophils 0.3 % (0-2); % Eosinophils 1.1 % (0-6); % Immature Granulocytes 0.6 % (0-0.5); % Lymphocytes 37.3 % (20.5-51.1); % Monocytes 12.5 % (1.7-9.3); % Neutrophils 48.2 % (42.2-75.2); Absolute Eosinophils 0.1 10^3/uL (0-0.7); Absolute Lymphocytes 2.7 10^3/uL (1.2-3.4); Absolute Monocytes 0.9 10^3/uL (0.1-0.6); Absolute Neutrophils 3.4 10^3/uL (1.4-6.5); Hematocrit 35.1 % (39.0-52.0); Mean Corp Hgb Conc. 31.3 g/dL (33.0-37.0); Mean Corpuscular Hgb 29.7 pg (27.0-31.0); Mean Corpuscular Volume 94.9 fL (80.0-94.0); Mean Platelet Volume 9.7 fL (7.4-10.4); Nucleated Red Blood Cells % 0 % (-); Platelet Count 289 10^3/uL (130-400); Red Cell Dist. Width 18.5 % (11.5-14.5); White Blood Cell Count 7.1 10^3/uL (4.8-10.8)
[2024-07-27 04:06] LABS: ALT (SGPT) 34 U/L (0-50); AST (SGOT) 43 U/L (17-59); Albumin 3.5 g/dl (3.5-5.0); Alkaline Phosphatase 46 U/L (38-126); Blood Urea Nitrogen 16 mg/dl (9-20); Calcium 8.6 mg/dl (8.4-10.2); Carbon Dioxide 31 mmol/L (22-30); Chloride 102 mmol/L (98-107); Estimated Creatinine Clearance > 125 ml/min; Glucose 105 mg/dl (70-99); Magnesium 2.3 mg/dl (1.6-2.3); Phosphorus 4.6 mg/dl (2.5-4.5); Potassium 3.9 mmol/L (3.5-5.1); Sodium 143 mmol/L (135-145); Total Bilirubin 0.5 mg/dl (0.2-1.3); Total Protein 6.3 g/dl (6.3-8.2); eGFR > 60.00
[2024-07-27 04:09] LABS: HCO3 31.5 mmol/L (21-28); O2 Saturation % 96.3 % (94-98); PCO2 52 mmHg (35-48); PO2 83 mmHg (83-108); pH 7.39 (7.35-7.45)
--- NOTE | 2024-07-27 04:11 | PTCARENOTE ---
sys reviewed. changes noted
[2024-07-27 04:12] LABS: B-Hydroxybutyrate 1.04 mmol/L (0.02-0.27)
[2024-07-27 04:14] LABS: NT-proBNP < 20.0 pg/ml
[2024-07-27] MEDS: VERSED 5 MG IV (04:27)
--- NOTE | 2024-07-27 04:27 | PTCARENOTE ---
RASS+2, versed 5 mg iv given
[2024-07-27] MEDS: ANCEF 10 IV ×3 (05:04→21:25)
[2024-07-27 05:14] LABS: Glucose - Point of Care 100 mg/dl (70-99)
--- NOTE | 2024-07-27 06:05 | PTCARENOTE ---
apresoline 10mg iv given for bp
[2024-07-27] MEDS: SUBLIMAZE 100 IV ×2 (06:51→21:34)
--- NOTE | 2024-07-27 07:55 | W.PN.INTV ---
Addendum entered and electronically signed by Ana Guerra MD 07/27/24 11:47:
Spoke with mother over phone
pt has not had etoh since Jan 2024
no clear hx of IVDA
Original Note:
Today's Communication / Plan
Recommendations
Wean off Precedex
Reassess for SBT on daily basis
Decrease thiamine to once a day
Continue antibiotics per ID
Follow cultures, negative to date
Change midline to PICC line
Consider nutrition if not extubated in the next 24 hours
Assessment
-
Assessment: 29-year-old male with a past medical history of hypertension, history of alcohol abuse, MATT not yet started on treatment, newly diagnosed DM type II (as per patient), and chronic lipid abuse who presents with testicular pain and
swelling. He was at [facility] prior to arrival and was apparently agitated they are requiring Precedex, and then he ended up leaving [facility] as he was unhappy with their care, although he was reportedly treated with IV antibiotics and topical
therapy for his scrotal infection. He was having hallucinations upon arrival here to [facility]. He said he has been having this scrotal swelling and redness for about 6 months, with progressively worsening pain, swelling and redness
over the last 3-4 weeks. It has been causing difficulty walking around due to discomfort and swelling. Initially in the ER he was afebrile to 99.8 �F, tachycardic to 114, respiratory rate 24, BP 189/120, and saturating 94% on room air. Initial
labs showed normal WBC at 7.5, Hb 11.3, lactate WNL at 1.6, CK4 3, urinalysis with trace leukocyte esterase, UDS positive for benzodiazepines, and marijuana. Beta hydroxybutyrate was elevated at 1.97 and he had +1 ketones in his urine. Of note his
serum bicarbonate level was normal at 23 and his anion gap was 15. Blood cultures were collected. Pelvic CT showed marked scrotal wall edema suggesting cellulitis with no subcutaneous gas to suggest Rustam's gangrene. CXR showed concern for
mild�moderate CHF. Of note prior stress echo in March 2021 showed an estimated EF of 55 to 60% with a normal stress echo and normal hemodynamic response to exercise. In the ER he was given 1 L NS 0.9%, IV vancomycin/Zosyn, 1 mg Ativan and
Folvite. Due to his severe scrotal cellulitis with hallucinations he was admitted to the ICU for further care and vessel master services consulted for additional management/recommendations.
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
Impression:
#Severe scrotal cellulitis without subcutaneous gas to suggest Rustam's gangrene s/p scrotal exploration (OR day: 07/25/2024)
#Ventilator dependent respiratory failure (came back intubated from the OR on 07/25/2024)
#Acute psychosis/altered mental status likely due to his longstanding Whippet abuse (Nitrous Oxide)
#Acute respiratory failure with hypoxia and hypercapnia
#Newly diagnosed DM type II (per patient) � HbA1c: 7.1 on 07/25/2024
#Very severe morbid obesity
#Newly diagnosed MATT not yet started on treatment (per patient)
#Anemia
#Elevated beta hydroxybutyrate with +1 urine ketones and anion gap of 15 � not consistent with DKA and likely due to starvation ketoacidosis (mild)
#Elevated CK likely due to his severe scrotal cellulitis
#Abnormal urinalysis with trace leukocyte esterase
Plan/recommendations
Patient remains critically ill, mechanically ventilated, Difficult to wean given intermittent agitation
Patient remains on dipper Van, Precedex, fentanyl, received 10 mg of Versed overnight
Also started on Seroquel 50 mg twice a day 07/26
Remains on Ancef
Patient with history of nitrous oxide use. Not sure whether there may be polysubstance abuse or alcohol use as well
Moving forward
Remains on cefazolin. ID following. Started on 07/25/2024
Of note, per records, no evidence of foreign years gangrene
Fevers noted, cultures negative to date
Continues on volume-cycled ventilation
Currently on AC 18/450/8/50%
Ppk 29, Pplat 24
ABG 7.39/52/83
Admission bicarbonate 2020, currently 31
Continue with current ventilation strategy, avoid over ventilation
Likely will require PEEP of 8 given risk for atelectasis, body habitus
CXR 07/27/2024 with no acute findings, left lower lobe atelectasis noted, ET tube appropriate
Doubt pneumonia at this time but will follow
He continues to have hallucinations with extreme agitation and combativeness, sitting up in bed while intubated and not being redirectable
Seroquel 50 mg BID to see if this helps calm him down; trend QTc
Psychiatry consulted and recommendations appreciated
Would like to wean off of Precedex
Continue propofol and fentanyl as able
Continue Versed as needed. Will try to obtain additional history from family regarding possibility of alcohol use
He has a history of alcohol abuse and unclear if he has continued to use
Continue thiamine, folic acid
Okay to decrease folic acid to daily
Neurology following as well
Hopefully can assess mental status and ability for weaning later today
Given his reported history of newly diagnosed MATT, once extubated he should use BiPAP with sleep and we can see him in the office for additional management otherwise he can see his original doctor that worked him up for MATT initially
Recommend extubating to BiPAP once he is ready for extubation
Will need to consider tube feeds
If not able to extubate, consider Dobbhoff tube
Elevated ketones noted
EKG today with QTc 428, normal sinus rhythm
Echocardiogram pending
Follow blood sugars
DVT prophylaxis: Remains on low molecular weight heparin, 60 mg twice a day due to weight
GI prophylaxis: Not indicated at this time
Critical care statement: A total of 35 minutes of critical care time was provided for this patient today. This includes management of unstable vital signs, evaluation of the patient at bedside, reviewing the patient's pertinent medical records
including radiographs, microbiology, laboratory evaluations, and discussion with primary team, consultants, pharmacy, nutrition, physical therapy, case management, charge nurse, critical care nursing, and respiratory therapy.
Data:
Pelvic CT with IV contrast 07/25/2024:
Marked scrotal wall edema suggesting cellulitis. No subcutaneous gas identified to suggest Rustam's gangrene. Clinical correlation is needed, however.
Limited evaluation of pelvic viscera is grossly unremarkable. Urinary bladder is decompressed around a Brambila catheter and not well evaluated. Normal appendix.
Visualized osseous structures are unremarkable. Evaluation of additional soft tissue structures such as ligaments and tendons is limited by CT. Grossly, no abnormalities noted.
CXR 07/25/2024: Mild to moderate CHF.
CXR 07/26/2024: Low inspiratory volumes. Suspected pulmonary vascular congestion; hazy opacity at the left lung base, which may represent subsegmental atelectasis, pneumonia, or alveolar pulmonary edema.
Subjective Dataa
Subjective Data
Date of Service:
Date of Service: July 27, 2024
Chief Complaint: Hot Baller Follow Up
Subjective:
Patient remains critically ill, unable to wean, becomes randomly agitated at times. Remains on propofol, Precedex, fentanyl, receiving Versed intermittently overnight. Minimal secretions
Objective Data
Data Reviewed
Vital Signs / I&O / Oxygen:
Vital Signs
Temp Pulse Resp BP Pulse Ox
100.0 F 72 18 137/69 96
07/27/24 03:29 07/27/24 07:00 07/27/24 07:00 07/27/24 07:00 07/27/24 07:00
Intake and Output
07/26/24 07/27/24 07/28/24
06:59 06:59 06:59
Intake Total 1305.8 / 1357.8 2376.6 / 2477.6 101.0 / 101.0
Output Total 6325 / 6325 3150 / 3150
Balance -5019.2 / -4967.2 -773.4 / -672.4 101.0 / 101.0
SaO2 [CPAP/PSV] 95
SaO2 [A/C] 93
SaO2 96
Nasal Cannula flow liters per 2
minute
Physical Exam
General: Comfortable and Other (Left upper extremity midline)
HEENT: Normocephalic, Anicteric and Other (Thick neck)
Cardiovascular: S1-S2, Regular Rhythm, Murmur (negative) and Peripheral Edema (Trace lower extremity edema bilaterally)
Respiratory: Wheeze (negative), Crackles (negative), Rhonchi (negative), Non-Labored Respirations, Stridor (negative) and ET Tube (Clear bilaterally)
GI: Soft, Distended (Significant abdominal obesity), Non Tender, Normal Bowel Sounds and Other ([place] drain scrotal)
Neurology: Lethargic (Sedated) and Other (Pupils 2 mm bilaterally and sluggish)
Skin: Warm, Dry, Cyanosis (negative) and Jaundice (negative)
Labs/Micro/Reports
Lab Data
07/27/24 03:37
07/27/24 03:37
Laboratory Results
07/27/24
03:34
pH 7.39
pCO2 52 H
pO2 83
HCO3 31.5 H
O2 Delivery Level
Microbiology
07/25/24 00:30 Blood/Venous Blood Culture - Preliminary
No Growth in 48 hours- Final report to follow
07/25/24 00:31 Blood/Venous Blood Culture - Preliminary
No Growth in 48 hours- Final report to follow
07/25/24 06:47 Nose MRSA Screen - Final
No Methicillin Resistant Staphylococcus aureus isolated.
--- NOTE | 2024-07-27 08:39 | W.PN.URO.CBU ---
Today's Communication / Plan
-
Continue antibiotics
Maintain sydni drain
Assessment / Plan
-
29M with morbid obesity, new diagnosis of diabetes, polysubstance abuse, with severe scrotal cellulitis
Presented after 3 days at [facility] with IV antibiotics and no improvement
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
now s/p scrotal exploration 07/25
Findings: Healthy skin with bleeding edges upon incision into region of greatest abnormality/fluctuance at anterior scrotum
No skin necrosis - regions of mottled or dark tissue were sloughing/exfoliation of epidermis with healthy bleeding tissue underneath
No infected fluid or abscess on scrotal exploration, just significant edema
- Continue antibiotics for cellulitis per ID
- Elevate scrotum as able to help decrease edema
- Maintain sydni drain for now, possible removal tomorrow
Diagnosis
-
Date of Service: July 27, 2024
-
Patient Diagnosis:
Scrotal cellulitis
Sepsis
Polysubstance abuse
Diabetes
Morbid obesity
Subjective
-
intubated
Objective
-
Vital Signs
Temp Pulse Resp BP Pulse Ox
100.0 F 72 18 137/69 95
07/27/24 03:29 07/27/24 07:00 07/27/24 07:00 07/27/24 07:00 07/27/24 08:00
Intake and Output
07/26/24 07/27/24 07/28/24
06:59 06:59 06:59
Intake Total 1305.8 / 1357.8 2376.6 / 2477.6 202.0 / 202.0
Output Total 6325 / 6325 3150 / 3150
Balance -5019.2 / -4967.2 -773.4 / -672.4 202.0 / 202.0
Intake:
IV fluids (Total) 400.8 / 452.8 1786.6 / 1887.6 202.0 / 202.0
Fentanyl 85.0 / 97.5 275.0 / 287.5 25.0 / 25.0
Precedex 315.8 / 355.3 977.8 / 1027.2 98.8 / 98.8
Propofol 533.8 / 572.9 78.2 / 78.2
IV piggybacks 905 / 905 500 / 500
Amount instilled into GI Tube ( 90 / 90
Total)
Tate Sump 90 / 90
Output:
Gastrointestinal tube output ( 200 / 200
Total)
Tate Sump 200 / 200
Urine, Brambial 6325 / 6334 2950 / 2950
Laboratory Results
07/27/24 03:37
07/27/24 03:37
Physical Exam
-
General - no acute distress on vent
Chest - intubated
Abdomen - soft, non-tender, obese
Improved cellulitis of groin, scrotum, lower abdomen
Clear drainage from scrotal sydni
Stable skin appearance
--- NOTE | 2024-07-27 09:00 | PTCARENOTE ---
Rec'd pt w/ wrists restrained for pt safety, fent/precedexz/diprivan gtt infusing via Midline, orders noted for PICC placement, awaiting VAT at this time. SR, weak pulses, +2 srotal edema, sydni draining serous liquid, urologist in to assess. #8
oral ett- 26cm- left side mouth, ac 18, tv 450, 8 peep, 40%, lungs decr, sat 96%, hypo bowel sounds, no bm, abd obese, oral [place] to low inter suction draining green, irrigated q4hr w/ tap h20, stovall draining abraham urine with sediment. Bariatric
sport bed set to rotation. Plan discussed with care team, not appropriate for SBT today per global vp creative + content marketing. Possible removal of Sydni drain tomorrow per urologist. Mother updated by phone by this RN, safe environment maintained.
[2024-07-27] MEDS: CYANOCOBALAMIN 1000 MCG IM (09:12)
[2024-07-27] MEDS: DESENEX/MITRAZOL/ZEASORB 1 APPLIC TOPICAL ×2 (09:12→21:23)
[2024-07-27] MEDS: FOLVITE 1 MG PO (09:12)
[2024-07-27] MEDS: SEROQUEL 50 MG PO ×2 (09:12→19:53)
[2024-07-27] MEDS: LASIX 40 MG IV (09:13)
[2024-07-27] MEDS: MIRALAX TUBE (09:16)
[2024-07-27] MEDS: THIAMINE INJECTION 255 MG IV (09:17)
[2024-07-27] MEDS: LOVENOX 60 MG SC ×2 (09:19→19:52)
--- NOTE | 2024-07-27 10:44 | W.PN.ID1 ---
Date of Service
Date of Service: July 27, 2024
Today's Communication
Continue cefazolin.
Assessment / Plan
# Scrotal edema/cellulitis
- 07/25/24 s/p OR scrotal exploration without findings of Rustam's
- Continue cefazolin (d3)
- Elevate scrotum
# Fever persists
- Postop fever vs drug fever (precedex)
- Blood cx's neg to date
- Follow temps.
# Change in mental status
# Daily nitrous oxide use
# Former alcohol abuse
-Neuro and psych following
# New dx of DM2.
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
Diabetes mellitus
Class III obesity BMI 62
MATT
Past Hx Substance abuse (Valium)
Right hand ORIF
Right Ankle Surgery
Knee Arthroscopy
Chief Complaint
-: Cellulitis (scrotum)
Subjective / Review of Systems
Remains on vent. No secretions, per nurse.
Vital Signs / Physical Exam
Vital Signs
Vital Signs
Temp Pulse Resp BP Pulse Ox
98.5 F 70 18 141/76 95
07/27/24 08:29 07/27/24 09:13 07/27/24 07:00 07/27/24 09:13 07/27/24 08:00
Physical Exam
Constitutional: Obese
Cardiovascular: Regular Rate and S1/S2
Gastrointestinal: Soft, Non Tender, Non Distended and Normal Bowel Sounds
Genito-Urinary: Other (Scrotum: decreased edema and erythema)
Extremities: Edema
Objective Data
Lab Data
Lab Results
07/27/24 03:37
07/27/24 03:37
PT 15.0 Sec (11.4-14.6) H 07/25/24 06:47
INR 1.15 07/25/24 06:47
APTT 31.1 Sec (23.4-35.0) 07/25/24 06:47
Estimated Creat Clear > 125 ml/min 07/27/24 03:37
Lactic Acid Cancelled 07/25/24 04:15
Total Bilirubin 0.5 mg/dl (0.2-1.3) 07/27/24 03:37
AST 43 U/L (17-59) 07/27/24 03:37
ALT 34 U/L (0-50) 07/27/24 03:37
Alkaline Phosphatase 46 U/L (38-126) 07/27/24 03:37
Most recent labs reviewed.
Micro Results:
07/25/24 00:30 Blood Culture - Preliminary
Blood/Venous No Growth in 48 hours- Final report to follow
07/25/24 00:31 Blood Culture - Preliminary
Blood/Venous No Growth in 48 hours- Final report to follow
07/25/24 06:47 MRSA Screen - Final
Nose No Methicillin Resistant Staphylococcus aureus isolated.
07/25/[address]: Marked scrotal wall edema suggesting cellulitis. No subcutaneous gas identified to suggest Rustam's gangrene.
07/25/24 CXR: Mild to moderate CHF.
--- NOTE | 2024-07-27 12:37 | PTCARENOTE ---
Systems reassessed. Medicatations titrated per orders/assesments, see flowsheet. PICC placed by VAT CHRIST Oshea, xray taken to verify placement, awaiting result. Pts mother at bedside, again updated by this RN. She stated that she spoke with
edge trimming machine operator earlier by phone.
[2024-07-27 13:05] LABS: Glucose - Point of Care 100 mg/dl (70-99)
--- NOTE | 2024-07-27 13:39 | W.PN.HOSP.TC ---
Today's Communication/Plan
-
Monitor vital signs see plan
Continue with antibiotics
Wean vent and sedation as tolerated
Follow cultures
Continue with Ancef
Monitor mental status closely
Assessment / Plan
Assessment / Plan
29yo M with apparent PMHX of DM, morbidly obese, N2O abuse came after he left AMA from [facility] (did not like how he was treated there), where he was treated for scrotal infection. He had inflammation in his private area for a long time now. CT showed
scrotal cellulitis, concern for initial stages of Rustam gangrene. Also apparently had episodes of hallucinations in [facility] treated with precedex drip and Ativan. Also new onset DM
A/P
#Scrotal cellulitis with sepsis (fever, hallucinations)
suspect TME 2/2 Sepsis; also does appear to have component of withdrawal
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
Bcx NTD
Urology con: s/p scrotal exploration on 07/25/24 - found cellulitis only, intubated after procedure due to possible withdrawal. Maintain drain per urology
Attending Physician following, vent management per pulmonary
Wean sedation as tolerated, currently on propofol, fentanyl and Precedex
ID following: switched to Ancef on 07/26/24
Brambila
psych
no reported hx of IVDU
Acute hypoxic respiratory failure 2/2 suspected pulmonary edema
echo with preserved EF
monitor
wean vent as tolerated; currently vent weaning is challenging due to patient psychosis
#DM type 2, with unspecified complications
Accuchecks, insulin SS, DM diet
HgbA1c 7.1
#Hallucinations
#hx of alcohol abuse
N2O withdrawal vs 2/2 sepsis
Thiamine/Folate
MSAS when extubated
Neuro and psych eval
Head CT without acute findings
Haldol PRN
Seroquel twice daily per psych
#Morbid obesity
BMI 62.4
decrease calorie intake
#new diagnosis of DM
Accuchekcs, insulin SS, DM diet
d/c with oral hypoglycemics as HgbA1c 7.1%
#GERD
cont PPI
DVT ppx hep
full code
General: Intubated
Respiratory: Clear to Auscultation
Cardiac: Regular Rhythm
GI: Soft
Genito-urinary: Brambila and Other (scrotal drain)
Neuro: Sedated
I spent a total of 52 minutes with the patient or on the floor. More than 50% of this time involved counseling and coordination of care.
Anticipated Discharge: > 48 hours
Subjective/Interval History
-
Date of Service: July 27, 2024
intubated
Objective Data
-
Labs:
Laboratory Results
07/27/24 07/27/24
03:34 03:37
WBC 7.1
Hgb 11.0 L
Hct 35.1 L
Plt Count 289
HCO3 31.5 H
Sodium 143
Potassium 3.9
Chloride 102
Carbon Dioxide 31 H
BUN 16
Creatinine 1.0
Glucose 105 H
Calcium 8.6
Total Bilirubin 0.5
AST 43
ALT 34
Alkaline Phosphatase 46
Vital Signs:
Vital Signs
Temp Pulse Resp BP Pulse Ox
98.5 F 72 15 133/73 96
07/27/24 08:29 07/27/24 13:00 07/27/24 13:00 07/27/24 13:00 07/27/24 13:38
I&O
07/26/24 07/27/24 07/28/24
06:59 06:59 06:59
Intake Total 1305.8 / 1357.8 2376.6 / 2477.6 1059.8 / 1059.8
Output Total 3025 / 6325 3150 / 3150 1825 / 1825
Balance -5019.2 / -4967.2 -773.4 / -672.4 -765.2 / -765.2
--- NOTE | 2024-07-27 14:43 | W.PN.UPDATE ---
Update Note
Progress Note Update
Pt reviewed with nursing, remains intubated. Nursing staff reports pt was very agitated yesterday, moving the whole bed, had to be given Versed. Pt back on Precedex, Fentanyl, Propofol. Family was contacted by Wool Hat Sanding Machine Operator, reported pt has not
consumed alcohol since last January, has continued use of Nitrous Oxide and increased use recently. Unable to assess while intubated, sedated.
Imp: Nitrous oxide use, hallucinations likely substance-induced
Rec: continue Seroquel 50 mg BID for now, as well as Haldol and Ativan prn
will follow
--- NOTE | 2024-07-27 14:48 | PTCARENOTE ---
PICC placement now verified by xray; all tubings changed over and moved to infuse via PICC.
--- NOTE | 2024-07-27 15:23 | PTCARENOTE ---
Precedex tapered to 0.3 mcg/kg/hr per protocol.
[2024-07-27] MEDS: SUBLIMAZE 100 MCG IV ×4 (16:28→23:54)
--- NOTE | 2024-07-27 16:30 | PTCARENOTE ---
Fent bolus administered for sudden onset agitation, reaching for tube, thrashing in bed, lifting head off pillow. Propofol gtt increased at this time, see flowsheet.
--- NOTE | 2024-07-27 17:00 | PTCARENOTE ---
Pt was turned and CHG bath performed with assistance of 2 additional RNs. Precedex weaned off per pharmacist instructions. Remains lightly sedated with Propofol infusing at 50 mcg/kg/min. Tolerating current vent settings this shift. Pts mother left
for the evening. Safe environment maintained.
[2024-07-27 17:37] LABS: Glucose - Point of Care 90 mg/dl (70-99)
[2024-07-27] MEDS: ATIVAN 2 MG IV ×2 (19:49→23:51)
--- NOTE | 2024-07-27 20:30 | PTCARENOTE ---
Received Pt from Day RN. Pt currently in b/l wrists restrained for Pt safety. Pt remains on AC vent spo2 95% FIO2 at 40%, lungs diminished, . Pt requiring bolus of meds for sudden onset agitation, see MAR. Pt presenting diaphoretic, temp 99.9.
Tachycardic on gambling monitor, distant Hr low 100's. Abdomen round, full, distended. Brambila in place draining abraham urine with sediment.
[2024-07-28] VITALS (23 sets, daily range): BP systolic 121–143; BP diastolic 51–79; BMI 68.0
[2024-07-28] MEDS: DEXTROSE 50% SYRINGE 12.5 GRAMS IV ×3 (00:17→05:05)
[2024-07-28] MEDS: TYLENOL ORAL SOLUTION 650 MG TUBE ×4 (00:18→20:05)
[2024-07-28 00:24] LABS: Glucose - Point of Care 66 mg/dl (70-99)
[2024-07-28] MEDS: DIPRIVAN 100 IV ×15 (00:44→22:28)
[2024-07-28 00:48] LABS: Glucose - Point of Care 93 mg/dl (70-99)
[2024-07-28] MEDS: SUBLIMAZE 100 MCG IV ×10 (01:56→17:49)
[2024-07-28 02:51] LABS: Glucose - Point of Care 69 mg/dl (70-99)
[2024-07-28 03:13] LABS: Glucose - Point of Care 89 mg/dl (70-99)
[2024-07-28] MEDS: ATIVAN 2 MG IV (04:08)
[2024-07-28] MEDS: SUBLIMAZE 100 IV ×4 (04:10→19:06)
[2024-07-28 04:30] LABS: % Basophils 0.3 % (0-2); % Immature Granulocytes 0.7 % (0-0.5); % Lymphocytes 29.8 % (20.5-51.1); % Monocytes 12.4 % (1.7-9.3); % Neutrophils 54.8 % (42.2-75.2); Absolute Eosinophils 0.2 10^3/uL (0-0.7); Absolute Immature Granulocytes 0.1 10^3/uL (0-0.05); Absolute Lymphocytes 3.1 10^3/uL (1.2-3.4); Absolute Monocytes 1.3 10^3/uL (0.1-0.6); Absolute Neutrophils 5.7 10^3/uL (1.4-6.5); Hematocrit 35.2 % (39.0-52.0); Hemoglobin 11.1 g/dL (13.0-18.0); Mean Corp Hgb Conc. 31.5 g/dL (33.0-37.0); Mean Corpuscular Hgb 30.1 pg (27.0-31.0); Mean Corpuscular Volume 95.4 fL (80.0-94.0); Nucleated Red Blood Cells % 0 % (-); Platelet Count 274 10^3/uL (130-400); Red Blood Cell Count 3.69 10^6/uL (4.70-6.10); Red Cell Dist. Width 18.7 % (11.5-14.5); White Blood Cell Count 10.4 10^3/uL (4.8-10.8)
[2024-07-28 05:02] LABS: ALT (SGPT) 32 U/L (0-50); AST (SGOT) 88 U/L (17-59); Albumin 3.4 g/dl (3.5-5.0); Alkaline Phosphatase 48 U/L (38-126); Blood Urea Nitrogen 17 mg/dl (9-20); Calcium 8.4 mg/dl (8.4-10.2); Carbon Dioxide 30 mmol/L (22-30); Chloride 102 mmol/L (98-107); Estimated Creatinine Clearance > 125 ml/min; Glucose 69 mg/dl (70-99); Sodium 144 mmol/L (135-145); Total Bilirubin 0.6 mg/dl (0.2-1.3); Total Protein 6.3 g/dl (6.3-8.2); eGFR > 60.00
[2024-07-28 05:08] LABS: Potassium 3.8 mmol/L (3.5-5.1)
[2024-07-28 05:09] LABS: Glucose - Point of Care 68 mg/dl (70-99)
--- NOTE | 2024-07-28 05:30 | PTCARENOTE ---
Addendum entered by Korin Garcia RN 07/28/24 07:01:
Pt HR sustaining 115-120's, night School Guard made aware of change.
Original Note:
Pt glucose resulting as hypoglycemic, protocol followed see work list. Night REACHER made aware, D5w @50ml/hr ordered.
[2024-07-28] MEDS: ANCEF 10 IV ×3 (05:38→21:53)
[2024-07-28 05:46] LABS: Glucose - Point of Care 76 mg/dl (70-99)
[2024-07-28] MEDS: D5W 1000 IV (06:03)
--- NOTE | 2024-07-28 07:15 | PTCARENOTE ---
Pt rec'd from previous RN intubated and sedated with propofol/fentanyl gtts infusing via left DL PICC line, pt with intermittent episodes of sudden agitation, Fent boluses administered and gtt increased-see flowsheet. Pt biting tube and pulling at
restraints, lifting upper body off bed, desaturating to 80s, RT at bedside-deep suctioned for scant amount thick white secretions. Pulse ox changed out, sat increased back to 90s, lungs CTA. Tolerating current ventilator settings. Pt tachycardic and
diaphoretic, temp 101-Tylenol administered with am medications. Abd round obese, hypoactive BS. Oral SS to LIWS draining green/brn liquid. Brambila in place per urology, +abraham/yellow urine with some sediment. Scrotal edema, Giselle drain with mod
serous output noted on ABD. Brambila and oral care provided, dressings changed. Safe environment maintained.
[2024-07-28 07:34] LABS: Glucose - Point of Care 77 mg/dl (70-99)
--- NOTE | 2024-07-28 08:25 | W.PN.INTV ---
Today's Communication / Plan
Recommendations
Changed to ASV
ABG, chest x-ray in a.m.
Maintain off Precedex
No further wean at this time, continue propofol/Precedex
Check COVID, flu
Place Dobbhoff tube, start tube feeds
Follow blood sugars
Assessment
-
Assessment: 29-year-old male with a past medical history of hypertension, history of alcohol abuse, MATT not yet started on treatment, newly diagnosed DM type II (as per patient), and chronic lipid abuse who presents with testicular pain and
swelling. He was at [facility] prior to arrival and was apparently agitated they are requiring Precedex, and then he ended up leaving [facility] as he was unhappy with their care, although he was reportedly treated with IV antibiotics and topical
therapy for his scrotal infection. He was having hallucinations upon arrival here to [facility]. He said he has been having this scrotal swelling and redness for about 6 months, with progressively worsening pain, swelling and redness
over the last 3-4 weeks. It has been causing difficulty walking around due to discomfort and swelling. Initially in the ER he was afebrile to 99.8 �F, tachycardic to 114, respiratory rate 24, BP 189/120, and saturating 94% on room air. Initial
labs showed normal WBC at 7.5, Hb 11.3, lactate WNL at 1.6, CK4 3, urinalysis with trace leukocyte esterase, UDS positive for benzodiazepines, and marijuana. Beta hydroxybutyrate was elevated at 1.97 and he had +1 ketones in his urine. Of note his
serum bicarbonate level was normal at 23 and his anion gap was 15. Blood cultures were collected. Pelvic CT showed marked scrotal wall edema suggesting cellulitis with no subcutaneous gas to suggest Rustam's gangrene. CXR showed concern for
mild�moderate CHF. Of note prior stress echo in March 2021 showed an estimated EF of 55 to 60% with a normal stress echo and normal hemodynamic response to exercise. In the ER he was given 1 L NS 0.9%, IV vancomycin/Zosyn, 1 mg Ativan and
Folvite. Due to his severe scrotal cellulitis with hallucinations he was admitted to the ICU for further care and back facer services consulted for additional management/recommendations.
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
Impression:
#Severe scrotal cellulitis without subcutaneous gas to suggest Rustam's gangrene s/p scrotal exploration (OR day: 07/25/2024)
#Ventilator dependent respiratory failure (came back intubated from the OR on 07/25/2024)
#Acute psychosis/altered mental status likely due to his longstanding Whippet abuse (Nitrous Oxide)
#Acute respiratory failure with hypoxia and hypercapnia
#Newly diagnosed DM type II (per patient) � HbA1c: 7.1 on 07/25/2024
#Very severe morbid obesity
#Newly diagnosed MATT not yet started on treatment (per patient)
#Anemia
#Elevated beta hydroxybutyrate with +1 urine ketones and anion gap of 15 � not consistent with DKA and likely due to starvation ketoacidosis (mild)
#Elevated CK likely due to his severe scrotal cellulitis
#Abnormal urinalysis with trace leukocyte esterase
Plan/recommendations
Patient remains critically ill, mechanically ventilated, Difficult to wean given intermittent agitation
Has been weaned off Precedex
Currently on propofol, fentanyl
Also started on Seroquel 50 mg twice a day 07/26
Remains on Ancef
Patient with history of nitrous oxide use. Not sure whether there may be polysubstance abuse or alcohol use as well
Friend at bedside states patient may be using ketamine at times
Moving forward
Remains on cefazolin. ID following. Started on 07/25/2024
Of note, per records, no evidence of gangrene
Fevers noted, cultures negative to date
covid and flu reordered by ID
Continues on volume-cycled ventilation
We will change to ASV 100%
Ppk 35, Pplat 25
ABG 7.39/52/109
Admission bicarbonate 2019, currently 29
Continue with current ventilation strategy, avoid over ventilation
Likely will require PEEP of 8 given risk for atelectasis, body habitus
CXR 07/27/2024 with no acute findings, left lower lobe atelectasis noted, ET tube appropriate
Doubt pneumonia at this time but will follow
Repeat x-ray in a.m. along with ABG
He continues to have hallucinations with extreme agitation and combativeness, sitting up in bed while intubated and not being redirectable
Seroquel 50 mg BID to see if this helps calm him down; trend QTc
Psychiatry consulted and recommendations appreciated
Continue propofol and fentanyl as able
Continue Versed as needed.
He has a history of alcohol abuse and unclear if he has continued to use
Continue thiamine, folic acid
Okay to decrease folic acid to daily
Neurology following as well
Hopefully can assess mental status and ability for weaning
Given his reported history of newly diagnosed MATT, once extubated he should use BiPAP with sleep and we can see him in the office for additional management otherwise he can see his original doctor that worked him up for MATT initially
Recommend extubating to BiPAP once he is ready for extubation
Will need to consider tube feeds
Will place Dobbhoff tube, start tube feeds
Elevated ketones noted
Hypoglycemia noted, currently on D5
EKG today with QTc 428, normal sinus rhythm
Echocardiogram normal biventricular function
Follow blood sugars
DVT prophylaxis: Remains on low molecular weight heparin, 60 mg twice a day due to weight
GI prophylaxis: Not indicated at this time
Critical care statement: A total of 33 minutes of critical care time was provided for this patient today. This includes management of unstable vital signs, evaluation of the patient at bedside, reviewing the patient's pertinent medical records
including radiographs, microbiology, laboratory evaluations, and discussion with primary team, consultants, pharmacy, nutrition, physical therapy, case management, charge nurse, critical care nursing, and respiratory therapy.
Data:
Pelvic CT with IV contrast 07/25/2024:
Marked scrotal wall edema suggesting cellulitis. No subcutaneous gas identified to suggest Rustam's gangrene. Clinical correlation is needed, however.
Limited evaluation of pelvic viscera is grossly unremarkable. Urinary bladder is decompressed around a Brambila catheter and not well evaluated. Normal appendix.
Visualized osseous structures are unremarkable. Evaluation of additional soft tissue structures such as ligaments and tendons is limited by CT. Grossly, no abnormalities noted.
CXR 07/25/2024: Mild to moderate CHF.
CXR 07/26/2024: Low inspiratory volumes. Suspected pulmonary vascular congestion; hazy opacity at the left lung base, which may represent subsegmental atelectasis, pneumonia, or alveolar pulmonary edema.
Subjective Dataa
Subjective Data
Date of Service:
Date of Service: July 28, 2024
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
Subjective:
Patient remains critically ill. Remains ventilator dependent. He does occasionally open eyes, but becomes agitated easily. Remains on sedation
Objective Data
Data Reviewed
Vital Signs / I&O / Oxygen:
Vital Signs
Temp Pulse Resp BP Pulse Ox
101 F H 122 19 143/66 95
07/28/24 08:11 07/28/24 08:00 07/28/24 08:00 07/28/24 08:00 07/28/24 08:00
Intake and Output
07/27/24 07/28/24 07/29/24
06:59 06:59 06:59
Intake Total 2376.6 / 2477.6 2699.4 / 2834.5 135.1 / 135.1
Output Total 3150 / 3150 3803 / 3828
Balance -773.4 / -672.4 -1103.6 / -993.5 110.1 / 110.1
SaO2 [CPAP/PSV] 95
SaO2 [A/C] 95
SaO2 95
Nasal Cannula flow liters per 2
minute
Physical Exam
General: Comfortable and Other (Left upper extremity midline)
HEENT: Normocephalic, Anicteric and Other (Thick neck)
Cardiovascular: S1-S2, Regular Rhythm, Murmur (negative) and Peripheral Edema (Trace lower extremity edema bilaterally)
Respiratory: Wheeze (negative), Crackles (negative), Rhonchi (negative), Non-Labored Respirations, Stridor (negative) and ET Tube (Clear bilaterally)
GI: Soft, Distended (Significant abdominal obesity), Non Tender, Normal Bowel Sounds and Other ([place] drain scrotal)
Neurology: Lethargic (Sedated) and Other (Pupils 2 mm bilaterally and sluggish)
Skin: Warm, Dry, Cyanosis (negative) and Jaundice (negative)
Labs/Micro/Reports
Lab Data
07/28/24 04:14
07/28/24 04:14
Microbiology
07/25/24 00:31 Blood/Venous Blood Culture - Preliminary
No Growth in 72 hours- Final report to follow
07/25/24 00:30 Blood/Venous Blood Culture - Preliminary
No Growth in 72 hours- Final report to follow
07/25/24 06:47 Nose MRSA Screen - Final
No Methicillin Resistant Staphylococcus aureus isolated.
[2024-07-28] MEDS: CYANOCOBALAMIN 1000 MCG IM (08:54)
[2024-07-28] MEDS: LASIX 40 MG IV (08:54)
[2024-07-28] MEDS: SEROQUEL 50 MG PO ×2 (08:54→20:06)
[2024-07-28] MEDS: FOLVITE 1 MG PO (08:54)
[2024-07-28] MEDS: LOVENOX 60 MG SC ×2 (08:55→20:06)
[2024-07-28] MEDS: DESENEX/MITRAZOL/ZEASORB 1 APPLIC TOPICAL ×2 (08:56→20:07)
[2024-07-28] MEDS: MIRALAX TUBE (08:58)
--- NOTE | 2024-07-28 09:24 | W.PN.ID1 ---
Date of Service
Date of Service: July 28, 2024
Today's Communication
Check COVID/FLU, lei-cx
Assessment / Plan
# Scrotal edema/cellulitis
- 07/25/24 s/p OR scrotal exploration without findings of Rustam's
- Continue cefazolin (d4)
- Elevate scrotum
# Fever persists
- Check COVID19, Influenza
- Repeat blood cx's x 2
- UA/reflex to cx
- Sputum cx from ET
- Follow temps.
# Change in mental status
# Daily nitrous oxide use
# Former alcohol abuse
-Neuro and psych following
# New dx of DM2.
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
Diabetes mellitus
Class III obesity BMI 62
MATT
Past Hx Substance abuse (Valium)
Right hand ORIF
Right Ankle Surgery
Knee Arthroscopy
Chief Complaint
-: Cellulitis (scrotum)
Subjective / Review of Systems
Per nurse, pt very agitated last night, resumed precedex.
Vital Signs / Physical Exam
Vital Signs
Vital Signs
Temp Pulse Resp BP Pulse Ox
101 F H 119 19 143/66 95
07/28/24 08:11 07/28/24 08:54 07/28/24 08:00 07/28/24 08:54 07/28/24 08:00
Physical Exam
Constitutional: Acutely Ill (on vent) and Obese
Cardiovascular: S1/S2 and Other (tachycardic)
Pulmonary: Clear
Gastrointestinal: Soft, Non Tender and Non Distended
Genito-Urinary: Brambila, Clear Urine (sediments) and Other (Scrotum decreasing edema/erythema; sydni drain in place)
Objective Data
Lab Data
Lab Results
07/28/24 04:14
07/28/24 04:14
PT 15.0 Sec (11.4-14.6) H 07/25/24 06:47
INR 1.15 07/25/24 06:47
APTT 31.1 Sec (23.4-35.0) 07/25/24 06:47
Estimated Creat Clear > 125 ml/min 07/28/24 04:14
Lactic Acid Cancelled 07/25/24 04:15
Total Bilirubin 0.6 mg/dl (0.2-1.3) 07/28/24 04:14
AST 88 U/L (17-59) H 07/28/24 04:14
ALT 32 U/L (0-50) 07/28/24 04:14
Alkaline Phosphatase 48 U/L (38-126) 07/28/24 04:14
Most recent labs reviewed.
Micro Results:
07/25/24 00:31 Blood Culture - Preliminary
Blood/Venous No Growth in 72 hours- Final report to follow
07/25/24 00:30 Blood Culture - Preliminary
Blood/Venous No Growth in 72 hours- Final report to follow
07/25/24 06:47 MRSA Screen - Final
Nose No Methicillin Resistant Staphylococcus aureus isolated.
07/25/[address]: Marked scrotal wall edema suggesting cellulitis. No subcutaneous gas identified to suggest Rustam's gangrene.
07/25/24 CXR: Mild to moderate CHF.
[2024-07-28 11:16] LABS: B.E. 5.2 mmol/L; HCO3 31.5 mmol/L (21-28); O2 Saturation % 97.8 % (94-98); PCO2 52 mmHg (35-48); PO2 109 mmHg (83-108); pH 7.39 (7.35-7.45)
[2024-07-28 11:40] LABS: COVID-19 Antigen Negative (Negative)
[2024-07-28 11:55] LABS: Glucose - Point of Care 87 mg/dl (70-99)
[2024-07-28] MEDS: THIAMINE INJECTION 200 MG IV ×2 (11:58→20:06)
[2024-07-28 12:04] LABS: Urine Albumin Negative (Neg - Trace); Urine Bilirubin Negative (Negative); Urine Character Clear (Clear); Urine Color Yellow; Urine Glucose Negative (Negative); Urine Ketone 1+ (Negative); Urine Leukocyte Negative (Negative); Urine Nitrite Negative (Negative); Urine Occult Blood 4+ (Negative); Urine Specific Gravity 1.015 (<1.030); Urine Urobilinogen Negative (Neg - 1+)
--- NOTE | 2024-07-28 12:52 | PTCARENOTE ---
Prop and fent weaning down per protocol, see flowsheet. Pt repositioned with ceiling lift, possible extubation today per executive wellness programs director. Friend Darryl at bedside. Safe environment maintained.
[2024-07-28 13:31] LABS: Urine Red Blood Cell 50-60 /HPF (0-2); Urine Squamous Cell None seen /LPF (Few)
[2024-07-28 13:32] LABS: Urine White Cell None Seen /HPF (0-5)
--- NOTE | 2024-07-28 13:42 | W.PN.HOSP.TC ---
Today's Communication/Plan
-
Monitor vital signs see plan
Continue with antibiotics per infectious disease
Follow fever curve
Panculture per ID
Wean vent as tolerated
On propofol and fentanyl
Hopeful extubation soon
Assessment / Plan
Assessment / Plan
29yo M with apparent PMHX of DM, morbidly obese, N2O abuse came after he left AMA from [facility] (did not like how he was treated there), where he was treated for scrotal infection. He had inflammation in his private area for a long time now. CT showed
scrotal cellulitis, concern for initial stages of Rustam gangrene. Also apparently had episodes of hallucinations in [facility] treated with precedex drip and Ativan. Also new onset DM
A/P
#Scrotal cellulitis with sepsis (fever, hallucinations)
suspect TME 2/2 Sepsis; also does appear to have component of withdrawal
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
Bcx NTD
Urology con: s/p scrotal exploration on 07/25/24 - found cellulitis only, intubated after procedure due to possible withdrawal. Maintain drain per urology
Mass Spectrometry Manager following, vent management per pulmonary
Wean sedation as tolerated, currently on propofol, fentanyl, Precedex weaned off
ID following: switched to Ancef on 07/26/24
Brambila
psych
no reported hx of IVDU
Acute hypoxic respiratory failure 2/2 suspected pulmonary edema
echo with preserved EF
monitor
wean vent as tolerated; currently vent weaning is challenging due to patient psychosis
Persistent fever, ID following. COVID-negative. Flu pending. UA not suggestive of UTI. Blood culture 07/28 pending
#DM type 2, with unspecified complications
Accuchecks, insulin SS, DM diet
HgbA1c 7.1
#Hallucinations
#hx of alcohol abuse
N2O withdrawal vs 2/2 sepsis
Thiamine/Folate
MSAS when extubated
Neuro and psych eval
Head CT without acute findings
Haldol PRN
Seroquel twice daily per psych
#Morbid obesity
BMI 62.4
decrease calorie intake
#new diagnosis of DM
Accuchekcs, insulin SS, DM diet
d/c with oral hypoglycemics as HgbA1c 7.1%
#GERD
cont PPI
DVT ppx hep
full code
General: Intubated
Respiratory: Clear to Auscultation
Cardiac: Regular Rhythm
GI: Soft
Genito-urinary: Brambila and Other (scrotal drain)
Neuro: Sedated
I spent a total of 51 minutes with the patient or on the floor. More than 50% of this time involved counseling and coordination of care.
Anticipated Discharge: > 48 hours
Subjective/Interval History
-
Date of Service: July 28, 2024
Intubated
Objective Data
-
Labs:
Laboratory Results
07/28/24 07/28/24
04:14 11:03
WBC 10.4
Hgb 11.1 L
Hct 35.2 L
Plt Count 274
HCO3 31.5 H
Sodium 144
Potassium 3.8
Chloride 102
Carbon Dioxide 30
BUN 17
Creatinine 1.0
Glucose 69 L
Calcium 8.4
Total Bilirubin 0.6
AST 88 H
ALT 32
Alkaline Phosphatase 48
Vital Signs:
Vital Signs
Temp Pulse Resp BP Pulse Ox
100.4 F H 110 22 132/75 94
07/28/24 11:30 07/28/24 13:00 07/28/24 13:00 07/28/24 13:00 07/28/24 13:00
I&O
07/27/24 07/28/24 07/29/24
06:59 06:59 06:59
Intake Total 2376.6 / 2477.6 2699.4 / 2834.5 1103.1 / 1103.1
Output Total 3150 / 3150 3803 / 3828 1999
Balance -773.4 / -672.4 -1103.6 / -993.5 -896.9 / -896.9
--- NOTE | 2024-07-28 16:11 | PTCARENOTE ---
Orders rec'd for small bore feeding tube to be placed for administration of tube feedings. DHT placed right nare at 70 cm. Pt tolerated well. Abd xray ordered to confirm placement.
[2024-07-28 17:47] LABS: Glucose - Point of Care 83 mg/dl (70-99)
[2024-07-28 21:49] LABS: Methylmalonic Acid 7.73 umol/L (0.00-0.40)
[2024-07-29] VITALS (25 sets, daily range): BP systolic 120–181; BP diastolic 71–117; BMI 68.3
--- NOTE | 2024-07-29 00:13 | PTCARENOTE ---
Pt assessed. Responds to voice. Pt moves toes and twitches of fingers noted on command. PERRLA sluggish @ 3. Pt remains calm. Pt on vent ASV mode peep of 8. Sx x1 for scant thick white secretions. Tolerated well. Lungs CTABL. ST on monitor. (+) 1
edema noted generalized. Abd round large with (+) BS x4. NO BM as of this shift. OGT to LIWS. Brown/green output noted. Brambila putting out abraham minimal amts of urine. Bariatric bed turning pt. Fever noted of 100.8. Tylenol given as ordered. T down
to 99.6. No s/s of distress assessed. Will continue to monitor.
[2024-07-29] MEDS: D5W 1000 IV ×2 (00:35→20:50)
[2024-07-29] MEDS: DIPRIVAN 100 IV ×7 (00:36→10:20)
[2024-07-29] MEDS: SUBLIMAZE 100 IV ×2 (00:36→06:00)
[2024-07-29 00:45] LABS: Glucose - Point of Care 95 mg/dl (70-99)
[2024-07-29] MEDS: TYLENOL ORAL SOLUTION 650 MG TUBE ×3 (00:47→12:04)
--- NOTE | 2024-07-29 04:58 | PTCARENOTE ---
No change in pt status this shift. Pt remains on Prop @ 45 and Fent @ 200. VSS. No s/s of distress assessed. Will continue to monitor.
[2024-07-29 05:09] LABS: B.E. 3.8 mmol/L; HCO3 30.1 mmol/L (21-28); O2 Saturation % 96.9 % (94-98); PCO2 52 mmHg (35-48); PO2 86 mmHg (83-108); pH 7.37 (7.35-7.45)
[2024-07-29 05:14] LABS: O2 Therapy VENT
[2024-07-29 05:51] LABS: % Basophils 0.4 % (0-2); % Eosinophils 3.7 % (0-6); % Immature Granulocytes 0.8 % (0-0.5); % Lymphocytes 26.6 % (20.5-51.1); % Monocytes 10.5 % (1.7-9.3); Absolute Eosinophils 0.3 10^3/uL (0-0.7); Absolute Immature Granulocytes 0.1 10^3/uL (0-0.05); Absolute Monocytes 0.8 10^3/uL (0.1-0.6); Absolute Neutrophils 4.4 10^3/uL (1.4-6.5); Hemoglobin 11.3 g/dL (13.0-18.0); Mean Corp Hgb Conc. 34.2 g/dL (33.0-37.0); Mean Corpuscular Hgb 32.6 pg (27.0-31.0); Mean Corpuscular Volume 95.1 fL (80.0-94.0); Mean Platelet Volume 11.1 fL (7.4-10.4); Nucleated Red Blood Cells % 0 % (-); Platelet Count 242 10^3/uL (130-400); Red Blood Cell Count 3.47 10^6/uL (4.70-6.10); Red Cell Dist. Width 18.2 % (11.5-14.5); White Blood Cell Count 7.5 10^3/uL (4.8-10.8)
[2024-07-29] MEDS: ANCEF 10 IV (06:20)
[2024-07-29 06:34] LABS: Glucose - Point of Care 91 mg/dl (70-99)
[2024-07-29 07:03] LABS: ALT (SGPT) 25 U/L (0-50); AST (SGOT) 84 U/L (17-59); Albumin 3.3 g/dl (3.5-5.0); Alkaline Phosphatase 32 U/L (38-126); Blood Urea Nitrogen 11 mg/dl (9-20); Calcium 8.2 mg/dl (8.4-10.2); Carbon Dioxide 23 mmol/L (22-30); Chloride 96 mmol/L (98-107); Estimated Creatinine Clearance > 125 ml/min; Glucose 94 mg/dl (70-99); Sodium 134 mmol/L (135-145); Total Bilirubin 0.5 mg/dl (0.2-1.3); Total Protein 6.5 g/dl (6.3-8.2); eGFR > 60.00
--- NOTE | 2024-07-29 07:45 | W.PN.INTV ---
Addendum entered and electronically signed by Ana Guerra MD 07/29/24 12:19:
At bedside during sedation wean
Max tidal volume 1500 on CPAP 11/07
Patient following commands
Within 5 minutes of stopping propofol, fentanyl, patient becomes agitated, reaching for tube
Cuff leak present
Decision to extubate
Immediately following extubation, patient asking for wood patternmaker
Maintain on Ventimask
Dobbhoff tube remains in place
BiPAP as needed and nightly as tolerates
Will likely require Haldol and modification of antipsychotic therapy
Keep head of bed elevated
Reviewed with primary service
Original Note:
Today's Communication / Plan
Recommendations
Wean sedation, attempt SBT
Continue tube feeds
Blood sugars improved
Will likely require modification of antipsychotic therapy once extubated
Assessment
-
Assessment: 29-year-old male with a past medical history of hypertension, history of alcohol abuse, MATT not yet started on treatment, newly diagnosed DM type II (as per patient), and chronic lipid abuse who presents with testicular pain and
swelling. He was at [facility] prior to arrival and was apparently agitated they are requiring Precedex, and then he ended up leaving [facility] as he was unhappy with their care, although he was reportedly treated with IV antibiotics and topical
therapy for his scrotal infection. He was having hallucinations upon arrival here to [facility]. He said he has been having this scrotal swelling and redness for about 6 months, with progressively worsening pain, swelling and redness
over the last 3-4 weeks. It has been causing difficulty walking around due to discomfort and swelling. Initially in the ER he was afebrile to 99.8 �F, tachycardic to 114, respiratory rate 24, BP 189/120, and saturating 94% on room air. Initial
labs showed normal WBC at 7.5, Hb 11.3, lactate WNL at 1.6, CK4 3, urinalysis with trace leukocyte esterase, UDS positive for benzodiazepines, and marijuana. Beta hydroxybutyrate was elevated at 1.97 and he had +1 ketones in his urine. Of note his
serum bicarbonate level was normal at 23 and his anion gap was 15. Blood cultures were collected. Pelvic CT showed marked scrotal wall edema suggesting cellulitis with no subcutaneous gas to suggest Rustam's gangrene. CXR showed concern for
mild�moderate CHF. Of note prior stress echo in March 2021 showed an estimated EF of 55 to 60% with a normal stress echo and normal hemodynamic response to exercise. In the ER he was given 1 L NS 0.9%, IV vancomycin/Zosyn, 1 mg Ativan and
Folvite. 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
Impression:
#Severe scrotal cellulitis without subcutaneous gas to suggest Rustam's gangrene s/p scrotal exploration (OR day: 07/25/2024)
#Ventilator dependent respiratory failure (came back intubated from the OR on 07/25/2024)
#Acute psychosis/altered mental status likely due to his longstanding Whippet abuse (Nitrous Oxide)
#Acute respiratory failure with hypoxia and hypercapnia
#Newly diagnosed DM type II (per patient) � HbA1c: 7.1 on 07/25/2024
#Very severe morbid obesity
#Newly diagnosed MATT not yet started on treatment (per patient)
#Anemia
#Elevated beta hydroxybutyrate with +1 urine ketones and anion gap of 15 � not consistent with DKA and likely due to starvation ketoacidosis (mild)
#Elevated CK likely due to his severe scrotal cellulitis
#Abnormal urinalysis with trace leukocyte esterase
Plan/recommendations
Patient remains critically ill, mechanically ventilated, Difficult to wean given intermittent agitation
Currently on propofol, fentanyl
Also started on Seroquel 50 mg twice a day 07/26
Remains on Ancef
Patient with history of nitrous oxide use. Not sure whether there may be polysubstance abuse or alcohol use as well
Friend at bedside states patient may be using ketamine at times
Patient with psychotic symptoms preadmission
Moving forward
Remains on cefazolin. ID following. Started on 07/25/2024
Of note, per records, no evidence of gangrene
Fevers noted, cultures negative to date
covid and flu negative 07/28
Continues on volume-cycled ventilation
Maintained on ASV 100%
ABG 7.37/
Will transition to CPAP
I suspect if extubated, we will have a very small window for extubation, likely unble to pursue standard SBT
Doubt pneumonia at this time but will follow
Repeat x-ray in a.m. along with ABG
He continues to have hallucinations with extreme agitation and combativeness, sitting up in bed while intubated and not being redirectable
Seroquel 50 mg BID to see if this helps calm him down; trend QTc
Psychiatry consulted and recommendations appreciated
Continue propofol and fentanyl as able
Continue Versed as needed.
He has a history of alcohol abuse and unclear if he has continued to use
Continue thiamine, folic acid
Neurology following as well
May require Haldol and additional antipsychotic therapy postextubation. Reviewed with psychiatry
Hopefully can assess mental status and ability for weaning
Given his reported history of newly diagnosed MATT, once extubated he should use BiPAP with sleep and we can see him in the office for additional management otherwise he can see his original doctor that worked him up for MATT initially
Recommend extubating to BiPAP once he is ready for extubation
Dobbhoff tube placed, tolerating tube feeds
Elevated ketones noted
Hypoglycemia resolved
EKG 07/27 with QTc 428, normal sinus rhythm
Repeat EKG in a.m.
Echocardiogram normal biventricular function
Follow blood sugars
DVT prophylaxis: Remains on low molecular weight heparin, 60 mg twice a day due to weight
GI prophylaxis: Not indicated at this time
Critical care statement: A total of 40 minutes of critical care time was provided for this patient today. This includes management of unstable vital signs, evaluation of the patient at bedside, reviewing the patient's pertinent medical records
including radiographs, microbiology, laboratory evaluations, and discussion with primary team, consultants, pharmacy, nutrition, physical therapy, case management, charge nurse, critical care nursing, and respiratory therapy.
Data:
Pelvic CT with IV contrast 07/25/2024:
Marked scrotal wall edema suggesting cellulitis. No subcutaneous gas identified to suggest Rustam's gangrene. Clinical correlation is needed, however.
Limited evaluation of pelvic viscera is grossly unremarkable. Urinary bladder is decompressed around a Brambila catheter and not well evaluated. Normal appendix.
Visualized osseous structures are unremarkable. Evaluation of additional soft tissue structures such as ligaments and tendons is limited by CT. Grossly, no abnormalities noted.
CXR 07/25/2024: Mild to moderate CHF.
CXR 07/26/2024: Low inspiratory volumes. Suspected pulmonary vascular congestion; hazy opacity at the left lung base, which may represent subsegmental atelectasis, pneumonia, or alveolar pulmonary edema.
Subjective Dataa
Subjective Data
Date of Service:
Date of Service: July 29, 2024
Chief Complaint: J2Ee Developer Follow Up
Subjective:
Patient continues to get intermittently agitated with tachycardia. This morning, while on propofol and fentanyl, was following some commands. Tolerating ASV overnight, not requiring any pressors
Objective Data
Data Reviewed
Vital Signs / I&O / Oxygen:
Vital Signs
Temp Pulse Resp BP Pulse Ox
100.4 F H 100 25 132/80 95
07/29/24 07:34 07/29/24 02:00 07/29/24 02:00 07/29/24 02:00 07/29/24 04:30
Intake and Output
07/28/24 07/29/24 07/30/24
06:59 06:59 06:59
Intake Total 2699.4 / 2834.5 3389.3 / 3389.3
Output Total 3803 / 3828 2670 / 2670
Balance -1103.6 / -993.5 719.3 / 719.3
SaO2 [ASV] 97
SaO2 [CPAP/PSV] 95
SaO2 [A/C] 95
SaO2 95
Nasal Cannula flow liters per 2
minute
Physical Exam
General: Comfortable and Other (Left upper extremity midline)
HEENT: Normocephalic, Anicteric and Other (Thick neck)
Cardiovascular: S1-S2, Regular Rhythm, Murmur (negative) and Peripheral Edema (Trace lower extremity edema bilaterally)
Respiratory: Wheeze (negative), Crackles (negative), Rhonchi (negative), Non-Labored Respirations, Stridor (negative) and ET Tube (Clear bilaterally)
GI: Soft, Distended (Significant abdominal obesity), Non Tender, Normal Bowel Sounds and Other (Giselle drain scrotal)
Neurology: Lethargic (follows commands, turns head, nods appropriately)
Skin: Warm, Dry, Cyanosis (negative) and Jaundice (negative)
Labs/Micro/Reports
Lab Data
07/29/24 05:18
07/29/24 05:18
Laboratory Results
07/28/24 07/29/24
11:03 05:01
pH 7.39 7.37
pCO2 52 H 52 H
pO2 109 H 86
HCO3 31.5 H 30.1 H
O2 Delivery Level Vent
Microbiology
07/28/24 11:09 Nasal Swab Influenza Types A & B (AQUILES) - Final
Negative for Influenza A & B, NAAT
Negative results must be combined with clinical observations
and patient history.
Nucleic Acid Amplification test (NAAT)performed on the
[employer] platform.
07/25/24 00:31 Blood/Venous Blood Culture - Preliminary
No Growth in 4 days- Final report to follow
07/25/24 00:30 Blood/Venous Blood Culture - Preliminary
No Growth in 4 days- Final report to follow
07/25/24 06:47 Nose MRSA Screen - Final
No Methicillin Resistant Staphylococcus aureus isolated.
[2024-07-29 07:56] LABS: Triglycerides 2360 mg/dl (10-149)
[2024-07-29 07:57] LABS: Potassium 3.8 mmol/L (3.5-5.1)
[2024-07-29] MEDS: FOLVITE 1 MG PO (07:57)
[2024-07-29] MEDS: SEROQUEL 50 MG PO (07:57)
[2024-07-29] MEDS: LOVENOX 60 MG SC ×2 (07:57→19:22)
[2024-07-29] MEDS: DESENEX/MITRAZOL/ZEASORB 1 APPLIC TOPICAL ×2 (07:58→19:21)
[2024-07-29] MEDS: MIRALAX 17 GRAMS TUBE (07:58)
[2024-07-29] MEDS: THIAMINE INJECTION 200 MG IV ×2 (07:58→19:22)
--- NOTE | 2024-07-29 08:35 | PTCARENOTE ---
Pt received in bed @ 0700. B/L soft limb wrist restraints and 4 side rails up. Propofol infusing @ 45 mcg/kg/min and Fentanyl gtt infusing @ 200 mcg/hr. Pt able to follow commands. Squeezes hands. Wiggles toes. Nods yes and no appropriately. 100.4F
Wean started on ventilator and pt successful. Sinus tach on night monitor. HR 110s - 120s. +1 generalized anasarca. Abdomen round, full, obese. OGT recieved with different centimeter marking than originally entered; OGT removed. Right nare DHT @
70cm, confirmed by XR. Brambila catheter draining tea colored urine. (L) DL PICC with gtt's infusing.
--- NOTE | 2024-07-29 08:49 | W.PN.URO.CBU ---
Today's Communication / Plan
-
Continue antibiotics
[place] drain removed today
Resolving cellulitis
Assessment / Plan
-
29M with morbid obesity, new diagnosis of diabetes, polysubstance abuse, with severe scrotal cellulitis
Presented after 3 days at [facility] with IV antibiotics and no improvement
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
now s/p scrotal exploration 07/25
Findings: Healthy skin with bleeding edges upon incision into region of greatest abnormality/fluctuance at anterior scrotum
No skin necrosis - regions of mottled or dark tissue were sloughing/exfoliation of epidermis with healthy bleeding tissue underneath
No infected fluid or abscess on scrotal exploration, just significant edema
- Continue antibiotics for cellulitis per ID
- Elevate scrotum as able to help decrease edema
- [place] drain removed 07/29
- Possible extubation today
Diagnosis
-
Date of Service: July 29, 2024
-
Post Op Day:
Patient Diagnosis:
Scrotal cellulitis
Sepsis
Polysubstance abuse
Diabetes
Morbid obesity
Subjective
-
Intubated
Objective
-
Vital Signs
Temp Pulse Resp BP Pulse Ox
100.4 F H 100 25 132/80 99
07/29/24 07:34 07/29/24 02:00 07/29/24 02:00 07/29/24 02:00 07/29/24 08:09
Intake and Output
07/28/24 07/29/24 07/30/24
06:59 06:59 06:59
Intake Total 2699.4 / 2834.5 3389.3 / 3389.3
Output Total 3803 / 3828 2670 / 2670
Balance -1103.6 / -993.5 719.3 / 719.3
Intake:
Oral fluids 0 / 0
IV fluids (Total) 2204.4 / 2339.5 3019.3 / 3019.3
D5w 1,000 ml @ 50 mls/hr IV . 50 / 100 1150 / 1150
Q20H JORDYN Rx#:[id number]
Fentanyl 370.0 / 390.0 482.5 / 482.5
Precedex 325.9 / 325.9
Propofol 1458.5 / 1523.6 1386.8 / 1386.8
IV piggybacks 255 / 255
Amount instilled into GI Tube ( 240 / 240 370 / 370
Total)
Glenelg Sump 240 / 240 370 / 370
Output:
Gastrointestinal tube output ( 1000 / 1000
Total)
G[place]elg Sump 1000 / 1000
Urine, Brambila 2803 / 2828 2670 / 2670
Laboratory Results
07/29/24 05:18
07/29/24 05:18
Physical Exam
-
General - well developed, well nourished, no acute distress
Chest - clear
Abdomen - soft, non-tender
Genitalia - significantly improved cellulitis, healing superficial scrotal skin, clear serous exudate from sydni drain
Incision - clean, dry
Dressing - clean, dry, intact
[2024-07-29] MEDS: HALDOL 5 MG IV (11:38)
--- NOTE | 2024-07-29 11:46 | RESPNOTE ---
pt extubated to 50% venti mask at 1130. 02 sats of 93% noted.
[2024-07-29] MEDS: ZOSYN 50 IV ×2 (11:47→18:18)
--- NOTE | 2024-07-29 11:49 | W.PN.UPDATE ---
Addendum entered and electronically signed by Jessica Wolfe MD 07/29/24 11:55:
double checked that fentanyl not still being given w nursing. these orders pertain to status when intubated which he no longer is. nursing will speak to pumpman re juan david. my concern would be sedation w haldol and ativan prns
Original Note:
Update Note
Progress Note Update
patient seen chart reviewed. spoke to rx team. the patient was just extubated . at this point unable to complete psych evaluation still as he is not able to substantively engage in conversation. he continues to ask for a exhaust emissions automotive technician repeatedly and
appears frightened. he made comments to pumpman about the devil being inside him. he remains psychotic . would order scheduled haldol dose 5 mg to start now iv. there is a prn of haldol for 2 mg dose and an ativan one mg prn. will dc seroquel
which at the low dose would not be as effective as an antipsychotic and to increase could sedate him too much. he is now off propofol and fentanyl. hopefully will be able to do full psychiatric evaluation tomorrow.
[2024-07-29 11:55] LABS: Glucose - Point of Care 96 mg/dl (70-99)
--- NOTE | 2024-07-29 12:43 | W.PN.ID1 ---
Date of Service
Date of Service: July 29, 2024
Today's Communication
Broaden cefazolin to Zosyn.
Assessment / Plan
# Scrotal edema/cellulitis improving. s/p OR scrotal exploration without findings of Rustam's
# Fever persists
- Unclear source
- COVID19, Influenza neg
- Repeat blood cx's x 2, neg to date
- UA neg
- Sputum cx: nonproductove
- ? drug fever: dc'd Precedex 07/27. Quetiapine dc'd today
- Broaden cefazolin (d5) to Zosyn for now.
- Follow temps.
# Change in mental status
# Daily nitrous oxide abuse
# Former alcohol abuse
-Neuro and psych following
# New dx of DM2.
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
Diabetes mellitus
Class III obesity BMI 62
MATT
Past Hx Substance abuse (Valium)
Right hand ORIF
Right Ankle Surgery
Knee Arthroscopy
Chief Complaint
-: Cellulitis (scrotum)
Subjective / Review of Systems
On vent
Vital Signs / Physical Exam
Vital Signs
Vital Signs
Temp Pulse Resp BP Pulse Ox
101.2 F H 100 25 132/80 99
07/29/24 11:00 07/29/24 02:00 07/29/24 02:00 07/29/24 02:00 07/29/24 08:09
Physical Exam
Constitutional: Acutely Ill and Obese
Cardiovascular: S1/S2 and Other (tachy)
Pulmonary: Clear (anteriorly)
Gastrointestinal: Soft and Non Tender
Genito-Urinary: Brambila, Clear Urine and Other (scrotum decreasing edema/erythema)
Objective Data
Lab Data
Lab Results
07/29/24 05:18
07/29/24 05:18
PT 15.0 Sec (11.4-14.6) H 07/25/24 06:47
INR 1.15 07/25/24 06:47
APTT 31.1 Sec (23.4-35.0) 07/25/24 06:47
Estimated Creat Clear > 125 ml/min 07/29/24 05:18
Lactic Acid Cancelled 07/25/24 04:15
Total Bilirubin 0.5 mg/dl (0.2-1.3) 07/29/24 05:18
AST 84 U/L (17-59) H 07/29/24 05:18
ALT 25 U/L (0-50) 07/29/24 05:18
Alkaline Phosphatase 32 U/L (38-126) L 07/29/24 05:18
Most recent labs reviewed.
Micro Results:
07/28/24 12:08 Blood Culture - Preliminary
Blood/Venous No Growth in 24 hours- Final report to follow
07/28/24 11:01 Blood Culture - Preliminary
Blood/Venous No Growth in 24 hours- Final report to follow
07/28/24 11:09 Influenza Types A & B (AQUILES) - Final
Nasal Swab Negative for Influenza A & B, NAAT
Negative results must be combined with clinical observations
and patient history.
Nucleic Acid Amplification test (NAAT)performed on the
[employer] platform.
07/25/24 00:31 Blood Culture - Preliminary
Blood/Venous No Growth in 4 days- Final report to follow
07/25/24 00:30 Blood Culture - Preliminary
Blood/Venous No Growth in 4 days- Final report to follow
07/25/24 06:47 MRSA Screen - Final
Nose No Methicillin Resistant Staphylococcus aureus isolated.
07/25/[address]: Marked scrotal wall edema suggesting cellulitis. No subcutaneous gas identified to suggest Rustam's gangrene.
07/25/24 CXR: Mild to moderate CHF.
--- NOTE | 2024-07-29 12:46 | PTCARENOTE ---
Pt reassessed. Extubated @ 11:30. Transferred to Ventimask 10L;40%. SaO2 Pt immediately began asking for a preformer impregnated fabrics. Stating that there is a demon inside of him. Screaming for 'Help! Help! Help!' Apearing frightened, trying to exit bed. PRN Haldol 5mg
IV administered. EKG entered for morning x2.
--- NOTE | 2024-07-29 13:36 | CM ---
CM following re: discharge planning.
Discussed in Rounds, reviewed pt's chart, met with pt . Per Rounds meeting, weaning trial with possible extubation today, continue supportive care.
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
D/C plan: uncertain at this time and will depend on pt's progress.
CM will follow with discharge plan updates as hospitalization progresses
--- NOTE | 2024-07-29 14:24 | W.PN.HOSP.TC ---
Today's Communication/Plan
-
Monitor vital signs and see plan
Follow fever curve
Continue with antibiotics per infectious disease
Haldol per psychiatry
Wean oxygen as tolerated, currently on Ventimask
Assessment / Plan
Assessment / Plan
29yo M with apparent PMHX of DM, morbidly obese, N2O abuse came after he left AMA from [facility] (did not like how he was treated there), where he was treated for scrotal infection. He had inflammation in his private area for a long time now. CT showed
scrotal cellulitis, concern for initial stages of Rustam gangrene. Also apparently had episodes of hallucinations in [facility] treated with precedex drip and Ativan. Also new onset DM
A/P
#Scrotal cellulitis with sepsis (fever, hallucinations)
suspect TME 2/2 Sepsis; also does appear to have component of withdrawal
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
Bcx NTD
Urology con: s/p scrotal exploration on 07/25/24 - found cellulitis only, intubated after procedure due to possible withdrawal. Maintain drain per urology
Small Appliance Assembly Supervisor following, vent management per pulmonary. s/p extubation 07/29. Now hallucinating
Off sedation
Haldol per psychiatry
ID following: Antibiotics switched to Zosyn 07/29
Brambila
psych following
no reported hx of IVDU
Acute hypoxic respiratory failure 2/2 suspected pulmonary edema
echo with preserved EF
monitor
wean vent as tolerated; currently vent weaning is challenging due to patient psychosis
Persistent fever, ID following. COVID-negative. Flu neg. UA not suggestive of UTI. Blood culture 07/28 NGTD
Currently on tube feed through Dobbhoff, monitor
#DM type 2, with unspecified complications
Accuchecks, insulin SS, DM diet
HgbA1c 7.1
#Hallucinations
#hx of alcohol abuse
N2O withdrawal vs 2/2 sepsis
Thiamine/Folate
Monitor for withdrawal
Neuro and psych eval
Head CT without acute findings
Haldol PRN
Now off Seroquel and started on Haldol
#Morbid obesity
BMI 68.3
decrease calorie intake
Hyponatremia
Monitor
#new diagnosis of DM
Accuchekcs, insulin SS, DM diet
d/c with oral hypoglycemics as HgbA1c 7.1%
#GERD
cont PPI
DVT ppx hep
full code
General: No acute distress
Respiratory: Clear to Auscultation
Cardiac: Regular Rhythm
GI: Soft
Genito-urinary: Brambila and Other (scrotal drain)
Neuro: Agitated
Psych: Hallucination
I spent a total of 52 minutes with the patient or on the floor. More than 50% of this time involved counseling and coordination of care.
Anticipated Discharge: > 48 hours
Subjective/Interval History
-
Date of Service: July 29, 2024
just extubated
Objective Data
-
Labs:
Laboratory Results
07/29/24 07/29/24
05:01 05:18
WBC 7.5
Hgb 11.3 L
Hct 33.0 L
Plt Count 242
HCO3 30.1 H
Sodium 134 L D
Potassium 3.8
Chloride 96 L
Carbon Dioxide 23
BUN 11
Creatinine 0.8
Glucose 94
Calcium 8.2 L
Total Bilirubin 0.5
AST 84 H
ALT 25
Alkaline Phosphatase 32 L
Vital Signs:
Vital Signs
Temp Pulse Resp BP Pulse Ox
101.2 F H 100 25 132/80 94
07/29/24 11:00 07/29/24 02:00 07/29/24 02:00 07/29/24 02:00 07/29/24 13:34
I&O
07/28/24 07/29/24 07/30/24
06:59 06:59 06:59
Intake Total 2699.4 / 2834.5 3389.3 / 3517.9 823.0 / 823.0
Output Total 3803 / 3828 2670 / 2670 750 / 750
Balance -1103.6 / -993.5 719.3 / 847.9 73.0 / 73.0
--- NOTE | 2024-07-29 18:09 | PTCARENOTE ---
Pt reassessed. Pt showing periods of lucidity. 'Hey I don't remember being here at all. I'm very sorry for how I've been acting.' and 'Who won the [employer] game?' Intermittent periods of agitation where pt will yell at this nurse of his family stating
that he wants to go home. Emotional support provided. Jevity 1.5 @ 20ml/hr with 25ml/hr water flush initiated. Ventimask continues SaO2 90-97%. Deep breathing and coughing encouraged. Order for BiPAP @ HS. Family at bedside.
[2024-07-29] MEDS: ATIVAN 1 MG IV (20:39)
[2024-07-29] MEDS: NSS (PRESERVATIVE FREE) 0.5 ML IV (20:39)
[2024-07-29] MEDS: APRESOLINE 10 MG IV (20:40)
--- NOTE | 2024-07-29 21:00 | PTCARENOTE ---
Pt received start of shift, bedside handoff with previous shift RN. Vital signs captured for history, unable to verify prior to 1900. HR ST on telemetry. Pt's mother and friend at bedside. Pt AAOx3, slightly tearful. Pt drowsy, but aroused to
verbal. Pt asking to speak to a perlite grinder or get a bible in the room bc 'there is something inside him'. On further clarification, pt states there is a 'demon' inside of him. Ventimask 10L 40% FiO2, SpO2 92-95%. Lung sounds diminished b/l. Jevity 1.5
tube feeding infusing at 20mL/hr into R nare DHT (70cm at nare). Currently tolerating feed. Brambila draining very small amount abraham urine. New stat lock placed. Scrotal incision approximated. New sterile 4x4 gauze placed over incision.
Pt heard yelling 'Help! Help! Help!'. On entering room, ventimask no longer on pt face and disconnected from oxygen. On further inquiry, pt states 'the demon was fucking with my nose and I had to get the mask off' and 'I'm seeing some serious
demonic shit'. Therapeutic speech utilized, ineffective. PRN ativan administered - see AUG. BP elevated, PRN hydralazine - see AUG.
[2024-07-30] VITALS (22 sets, daily range): BP systolic 102–175; BP diastolic 63–121; PULSE 2–114; O2SAT 96; BMI 67.1
--- NOTE | 2024-07-30 00:40 | RESPNOTE ---
Bipap held as per HOUSE DETECTIVE, Pt is doing well on ventimask with no respiratory distress
[2024-07-30] MEDS: APRESOLINE 10 MG IV ×3 (01:06→16:08)
[2024-07-30] MEDS: ZOSYN 50 IV ×4 (01:06→18:04)
--- NOTE | 2024-07-30 01:30 | PTCARENOTE ---
Pt reassessed. Venti mask 10L FiO2 40% - SpO2 93-96%. Pt continues to periodically talk about demons and shadowy figures appearing in room and in himself. BP elevated - PRN hydralazine. Pt still drowsy but arouses to verbal stimuli.
[2024-07-30 01:31] LABS: Glucose - Point of Care 131 mg/dl (70-99)
[2024-07-30] MEDS: DILAUDID 0.5 MG IV (03:13)
--- NOTE | 2024-07-30 04:30 | PTCARENOTE ---
Pt reassessed. Pt COW score 9, PRN dilaudid per order - see MAR. Pt stovall catheter barely draining. Spoke w/ ICU DUMPING MACHINE OPERATOR Emma. Flushed stovall w/ sterile saline, no increase in flow. Bladder scan 270. Deflated and reinflated stovall balloon - no change in
flow. Pt was continuing to tolerated tube feed, advanced per order - was infusing at 40mL/hr until pt removed tube by self. Pt intently listening to bible verses on phone.
[2024-07-30 05:38] LABS: % Basophils 0.4 % (0-2); % Eosinophils 2.4 % (0-6); % Immature Granulocytes 0.4 % (0-0.5); % Lymphocytes 19.2 % (20.5-51.1); % Monocytes 11.1 % (1.7-9.3); % Neutrophils 66.5 % (42.2-75.2); ALT (SGPT) 33 U/L (0-50); AST (SGOT) 99 U/L (17-59); Absolute Eosinophils 0.2 10^3/uL (0-0.7); Absolute Lymphocytes 1.6 10^3/uL (1.2-3.4); Absolute Monocytes 0.9 10^3/uL (0.1-0.6); Absolute Neutrophils 5.5 10^3/uL (1.4-6.5); Albumin 3.3 g/dl (3.5-5.0); Alkaline Phosphatase 48 U/L (38-126); Blood Urea Nitrogen 7 mg/dl (9-20); Calcium 8.5 mg/dl (8.4-10.2); Carbon Dioxide 34 mmol/L (22-30); Chloride 97 mmol/L (98-107); Glucose 262 mg/dl (70-99); Hematocrit 35.8 % (39.0-52.0); Hemoglobin 11.1 g/dL (13.0-18.0); Mean Corpuscular Hgb 29.5 pg (27.0-31.0); Mean Corpuscular Volume 95.2 fL (80.0-94.0); Mean Platelet Volume 11.1 fL (7.4-10.4); Nucleated Red Blood Cells % 0 % (-); Platelet Count 259 10^3/uL (130-400); Potassium 3.7 mmol/L (3.5-5.1); Red Blood Cell Count 3.76 10^6/uL (4.70-6.10); Red Cell Dist. Width 17.9 % (11.5-14.5); Sodium 137 mmol/L (135-145); Total Bilirubin 0.8 mg/dl (0.2-1.3); Total Protein 6.2 g/dl (6.3-8.2); White Blood Cell Count 8.3 10^3/uL (4.8-10.8)
[2024-07-30 05:48] LABS: Estimated Creatinine Clearance > 125 ml/min; eGFR > 60.00
[2024-07-30 06:09] LABS: Glucose - Point of Care 137 mg/dl (70-99)
--- NOTE | 2024-07-30 08:00 | PTCARENOTE ---
Assumed care of patient at 0645. Assessment completed and documented in shift assessment on worklist.
Patient is AAOX2. Disoriented to time, poor recall of recent events. Frequently keeps eyes closed during interaction, drowsy. On 4L NC, lungs diminished throughout. ST on Monitor, SBP 130-140's requiring PRN Hydralazine. Patient pulled DHT
overnight, awaiting MEDIA JOB TITLES evaluation. NPO, obese abdomen with +BS throughout. 16french Brambila not presently draining urine, irrigated without any return of results. Notified Urology, awaiting intervention. Scrotal Incision partially covered by dry
gauze. JODI PORTER PICC patent with CDI dressing, infusing D5W at 50mL/hour.
--- NOTE | 2024-07-30 08:07 | W.PN.INTV ---
Addendum entered and electronically signed by Ana Guerra MD 07/30/24 12:10:
Urology was contacted. Brambila catheter was exchanged. Patient had 800 cc in the bladder, now functional
Prior Brambila had thick sediment occluding the catheter
Patient transferred out of ICU. Pulmonary will continue to follow briefly
Original Note:
Today's Communication / Plan
Recommendations
Follow blood pressure, heart rate
Hydralazine as needed
Continue tube feeds, advance diet, speech eval
Urology following. Follow urine output
Continue antibiotics per ID
Antipsychotic therapy, appreciate psychiatry evaluation
DVT prophylaxis continues
Assessment
-
Assessment: 29-year-old male with a past medical history of hypertension, history of alcohol abuse, MATT not yet started on treatment, newly diagnosed DM type II (as per patient), and chronic lipid abuse who presents with testicular pain and
swelling. He was at [facility] prior to arrival and was apparently agitated they are requiring Precedex, and then he ended up leaving [facility] as he was unhappy with their care, although he was reportedly treated with IV antibiotics and topical
therapy for his scrotal infection. He was having hallucinations upon arrival here to [facility]. He said he has been having this scrotal swelling and redness for about 6 months, with progressively worsening pain, swelling and redness
over the last 3-4 weeks. It has been causing difficulty walking around due to discomfort and swelling. Initially in the ER he was afebrile to 99.8 �F, tachycardic to 114, respiratory rate 24, BP 189/120, and saturating 94% on room air. Initial
labs showed normal WBC at 7.5, Hb 11.3, lactate WNL at 1.6, CK4 3, urinalysis with trace leukocyte esterase, UDS positive for benzodiazepines, and marijuana. Beta hydroxybutyrate was elevated at 1.97 and he had +1 ketones in his urine. Of note his
serum bicarbonate level was normal at 23 and his anion gap was 15. Blood cultures were collected. Pelvic CT showed marked scrotal wall edema suggesting cellulitis with no subcutaneous gas to suggest Rustam's gangrene. CXR showed concern for
mild�moderate CHF. Of note prior stress echo in March 2021 showed an estimated EF of 55 to 60% with a normal stress echo and normal hemodynamic response to exercise. In the ER he was given 1 L NS 0.9%, IV vancomycin/Zosyn, 1 mg Ativan and
Folvite. Due to his severe scrotal cellulitis with hallucinations he was admitted to the ICU for further care and stiff neck loader services consulted for additional management/recommendations.
Chronic conditions MANAGER STARS: Hypertension, morbid obesity, history of alcohol abuse, MATT not yet started on treatment, DM type II (recently diagnosed as per patient)
Impression:
#Severe scrotal cellulitis without subcutaneous gas to suggest Rustam's gangrene s/p scrotal exploration (OR day: 07/25/2024)
#Ventilator dependent respiratory failure (came back intubated from the OR on 07/25/2024)
Extubated 07/29/2024
#Acute psychosis/altered mental status likely due to his longstanding Whippet abuse (Nitrous Oxide)
#Acute respiratory failure with hypoxia and hypercapnia
#Newly diagnosed DM type II (per patient) � HbA1c: 7.1 on 07/25/2024
#Very severe morbid obesity
#Newly diagnosed MATT not yet started on treatment (per patient)
#Anemia
#Elevated beta hydroxybutyrate with +1 urine ketones and anion gap of 15 � not consistent with DKA and likely due to starvation ketoacidosis (mild)
#Elevated CK likely due to his severe scrotal cellulitis
#Abnormal urinalysis with trace leukocyte esterase
Plan/recommendations
Patient extubated 07/29/2024
Continues to have episodes of hallucinations, agitation
Remains on Ancef
Patient with history of nitrous oxide use. Not sure whether there may be polysubstance abuse or alcohol use as well
Friend at bedside states patient may be using ketamine at times
Patient with psychotic symptoms preadmission
Moving forward
Remains on cefazolin. ID following. Started on 07/25/2024
Transition to Zosyn
Of note, per records, no evidence of gangrene
Fevers noted, cultures negative to date
covid and flu negative 07/28
Extubated 07/29
CPAP as needed
Wean oxygen as able
Incentive spirometry, airway clearance, out of bed to chair as able
Doubt pneumonia at this time but will follow
X-ray as clinically indicated
He continues to have hallucinations with extreme agitation and combativeness, sitting up in bed while intubated and not being redirectable
Seroquel 50 mg BID to see if this helps calm him down; trend QTc. This has since been discontinued 07/29
Psychiatry consulted and recommendations appreciated
He has a history of alcohol abuse and unclear if he has continued to use
Okay to discontinue thiamine, folic acid
May require Haldol and additional antipsychotic therapy postextubation. Reviewed with psychiatry
Await psychiatry input regarding antipsychotic therapy
Given his reported history of newly diagnosed MATT,
BiPAP as needed
Recommend outpatient follow-up in sleep clinic
Dobbhoff tube placed, tolerating tube feeds. Continue for now
Blood sugars normal, blood sugar this morning likely artifactual
EKG 07/30 with QTc 433, normal sinus rhythm
Sinus tachycardia
Echocardiogram normal biventricular function
Labile blood pressure noted. Hydralazine as needed
Urology following. Urine output minimal overnight.
[place] drain removed 07/29
Will touch base with urology
DVT prophylaxis: Remains on low molecular weight heparin, 60 mg twice a day due to weight
GI prophylaxis: Not indicated at this time
Critical care statement: A total of 31 minutes of critical care time was provided for this patient today. This includes management of unstable vital signs, evaluation of the patient at bedside, reviewing the patient's pertinent medical records
including radiographs, microbiology, laboratory evaluations, and discussion with primary team, consultants, pharmacy, nutrition, physical therapy, case management, charge nurse, critical care nursing, and respiratory therapy.
Data:
Pelvic CT with IV contrast 07/25/2024:
Marked scrotal wall edema suggesting cellulitis. No subcutaneous gas identified to suggest Rustam's gangrene. Clinical correlation is needed, however.
Limited evaluation of pelvic viscera is grossly unremarkable. Urinary bladder is decompressed around a Brambila catheter and not well evaluated. Normal appendix.
Visualized osseous structures are unremarkable. Evaluation of additional soft tissue structures such as ligaments and tendons is limited by CT. Grossly, no abnormalities noted.
CXR 07/25/2024: Mild to moderate CHF.
CXR 07/26/2024: Low inspiratory volumes. Suspected pulmonary vascular congestion; hazy opacity at the left lung base, which may represent subsegmental atelectasis, pneumonia, or alveolar pulmonary edema.
Subjective Dataa
Subjective Data
Date of Service:
Date of Service: July 30, 2024
Chief Complaint: Edger Feeder Follow Up
Subjective:
Patient extubated yesterday p.m. Continues to have hallucinations but has periods of lucidity, and is appropriate at times. Receiving Haldol once a day. Labile blood pressure, heart rate noted. Low-grade fever noted. Hyperglycemia noted
Objective Data
Data Reviewed
Vital Signs / I&O / Oxygen:
Vital Signs
Temp Pulse Resp BP Pulse Ox
98.9 F 116 17 136/80 97
07/30/24 05:00 07/30/24 07:00 07/30/24 07:00 07/30/24 07:00 07/30/24 07:00
Intake and Output
07/29/24 07/30/24 07/31/24
06:59 06:59 06:59
Intake Total 3389.3 / 3517.9 2313.0 / 2363.0 50 / 50
Output Total 2670 / 2670 875 / 875
Balance 719.3 / 847.9 1438.0 / 1488.0 50 / 50
SaO2 [ASV] 94
SaO2 [CPAP/PSV] 95
SaO2 [A/C] 95
SaO2 97
Nasal Cannula flow liters per 4
minute
Physical Exam
General: Comfortable and Other (Left upper extremity midline)
HEENT: Normocephalic, Anicteric and Other (Thick neck)
Cardiovascular: S1-S2, Regular Rhythm, Murmur (negative) and Peripheral Edema (Trace lower extremity edema bilaterally)
Respiratory: Wheeze (negative), Crackles (negative), Rhonchi (negative), Non-Labored Respirations and Stridor (negative)
GI: Soft, Distended (Significant abdominal obesity), Non Tender, Normal Bowel Sounds and Other ([place] drain scrotal)
Neurology: Awake, Alert and Other (Follows commands, is oriented. Still intermittently admits to hallucinations)
Skin: Warm, Dry, Cyanosis (negative) and Jaundice (negative)
Labs/Micro/Reports
Lab Data
07/30/24 05:02
07/30/24 05:02
Microbiology
07/25/24 00:30 Blood/Venous Blood Culture - Final
No Growth - Final Report
07/25/24 00:31 Blood/Venous Blood Culture - Final
No Growth - Final Report
07/28/24 12:08 Blood/Venous Blood Culture - Preliminary
No Growth in 24 hours- Final report to follow
07/28/24 11:01 Blood/Venous Blood Culture - Preliminary
No Growth in 24 hours- Final report to follow
07/28/24 11:09 Nasal Swab Influenza Types A & B (AQUILES) - Final
Negative for Influenza A & B, NAAT
Negative results must be combined with clinical observations
and patient history.
Nucleic Acid Amplification test (NAAT)performed on the
[employer] platform.
[2024-07-30] MEDS: HALDOL 5 MG IV (08:52)
[2024-07-30] MEDS: THIAMINE INJECTION 200 MG IV (08:53)
[2024-07-30] MEDS: LOVENOX 60 MG SC ×2 (08:53→21:38)
[2024-07-30] MEDS: MIRALAX TUBE (08:54)
[2024-07-30] MEDS: FOLVITE PO (08:54)
[2024-07-30] MEDS: DESENEX/MITRAZOL/ZEASORB TOPICAL (08:57)
--- NOTE | 2024-07-30 10:14 | W.PN.ID1 ---
Date of Service
Date of Service: July 30, 2024
Today's Communication
Continue Zosyn.
Assessment / Plan
# Scrotal edema/cellulitis resolving. s/p OR scrotal exploration without findings of Rustam's
# Fever trending down.
- Unclear source. ?drug fever - Quetiapine dc'd 07/29 with downtrend of fevers.
- COVID19, Influenza neg
- Repeat blood cx's x 2, neg to date
- UA neg
- Sputum cx: nonproductove
- s/p cefazolin (x4d)
- Continue empiric Zosyn (d2).
- Follow temps.
# Change in mental status
# Daily nitrous oxide abuse
# Former alcohol abuse
-Neuro and psych following
# New dx of DM2.
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
Diabetes mellitus
Class III obesity BMI 62
MATT
Past Hx Substance abuse (Valium)
Right hand ORIF
Right Ankle Surgery
Knee Arthroscopy
Chief Complaint
-: Fever and Cellulitis (scrotum)
Subjective / Review of Systems
Extubated. Pt calling for the Home Care Associate.
Vital Signs / Physical Exam
Vital Signs
Vital Signs
Temp Pulse Resp BP Pulse Ox
99.4 F 115 14 145/109 97
07/30/24 07:50 07/30/24 09:05 07/30/24 08:00 07/30/24 09:05 07/30/24 08:00
Selected Entries
07/29/24
11:00
Temp max 101.2 F H
Physical Exam
Constitutional: No Acute Distress and Obese
Cardiovascular: Regular Rate and S1/S2
Pulmonary: Clear (anteriorly)
Gastrointestinal: Soft, Non Tender and Non Distended
Genito-Urinary: Other (Scrotal edema and erythema continue to decrease.)
Objective Data
Lab Data
Lab Results
07/30/24 05:02
07/30/24 05:02
PT 15.0 Sec (11.4-14.6) H 07/25/24 06:47
INR 1.15 07/25/24 06:47
APTT 31.1 Sec (23.4-35.0) 07/25/24 06:47
Estimated Creat Clear > 125 ml/min 07/30/24 05:02
Lactic Acid Cancelled 07/25/24 04:15
Total Bilirubin 0.8 mg/dl (0.2-1.3) 07/30/24 05:02
AST 99 U/L (17-59) H 07/30/24 05:02
ALT 33 U/L (0-50) 07/30/24 05:02
Alkaline Phosphatase 48 U/L (38-126) 07/30/24 05:02
Most recent labs reviewed.
Micro Results:
07/25/24 00:30 Blood Culture - Final
Blood/Venous No Growth - Final Report
07/25/24 00:31 Blood Culture - Final
Blood/Venous No Growth - Final Report
07/28/24 12:08 Blood Culture - Preliminary
Blood/Venous No Growth in 24 hours- Final report to follow
07/28/24 11:01 Blood Culture - Preliminary
Blood/Venous No Growth in 24 hours- Final report to follow
07/28/24 11:09 Influenza Types A & B (AQUILES) - Final
Nasal Swab Negative for Influenza A & B, NAAT
Negative results must be combined with clinical observations
and patient history.
Nucleic Acid Amplification test (NAAT)performed on the
[employer] platform.
07/25/24 06:47 MRSA Screen - Final
Nose No Methicillin Resistant Staphylococcus aureus isolated.
07/25/[address]: Marked scrotal wall edema suggesting cellulitis. No subcutaneous gas identified to suggest Rustam's gangrene.
07/25/24 CXR: Mild to moderate CHF.
--- NOTE | 2024-07-30 11:26 | PN.CDI ---
CDI
- -
CDI:
Physician Documentation Request
Admit Date: 07/25/24 05:22
Dear Doctor Kyler,
Progress notes state 'Acute hypoxic respiratory failure 2/2 suspected pulmonary edema'
Pulmonary note states 'CXR showed concern for mild�moderate CHF'
Patient has received multiple doses of IV lasix
07/27 Echo conclusion 'EF 60-65%'
07/25 BNP 257 07/27 < 20.0
Could you please clarify the diagnosis:
CHF - please indicate type and acuity
pulmonary edema
Other
Use of terms such as suspected, likely, concern for, or probable (associated with a specific diagnosis that is being evaluated, monitored, or treated as if it exists) are acceptable and can be coded in the inpatient setting, when documented at the
time of discharge.
Thank you,
Tamie Hoff RN, BSN
CDI Specialist
tiger text
Please use your independent medical judgment in providing your response.
--- NOTE | 2024-07-30 12:00 | PTCARENOTE ---
Assessment mostly unchanged besides interventions noted below:
Bladder Scanned for 645mL in bladder with non-draining stovall in place. After touching base with urology, instructed to remove and replace current stovall. Removed current stovall, placed new 16fench stovall without resistance. 800mL drained from bladder.
Urine brown, with sediment.
FINANCIAL REPORTING ANALYST also came to evaluate patient, cleared for Regulars and Thins per FINANCIAL REPORTING ANALYST.
[2024-07-30 12:06] LABS: Glucose - Point of Care 113 mg/dl (70-99)
[2024-07-30] MEDS: NSS (PRESERVATIVE FREE) 10 ML IV (12:07)
[2024-07-30] MEDS: PROTONIX IV 40 MG IV (12:07)
--- NOTE | 2024-07-30 12:56 | W.PN.HOSP.TC ---
Today's Communication/Plan
-
Monitor vitals
See plan
Brambila per urology
Continue with antibiotics
Follow fever curve
Wean oxygen as tolerated
Monitor mental status closely, if does not improve then will need neurology evaluation
Psychiatry following
Okay for diet
Transfer to telemetry
Assessment / Plan
Assessment / Plan
29yo M with apparent PMHX of DM, morbidly obese, N2O abuse came after he left AMA from [facility] (did not like how he was treated there), where he was treated for scrotal infection. He had inflammation in his private area for a long time now. CT showed
scrotal cellulitis, concern for initial stages of Rustam gangrene. Also apparently had episodes of hallucinations in [facility] treated with precedex drip and Ativan. Also new onset DM
A/P
#Scrotal cellulitis with sepsis (fever, hallucinations)
suspect TME 2/2 Sepsis; also does appear to have component of withdrawal
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
Bcx NTD
Urology con: s/p scrotal exploration on 07/25/24 - found cellulitis only, intubated after procedure due to possible withdrawal. scrotal drain dc'ed 07/29
Folder Machine Adjuster following, vent management per pulmonary. s/p extubation 07/29. Now on 4 L. now hallucinating. Waxing and waning mental status
Off sedation
Haldol per psychiatry
ID following: Antibiotics switched to Zosyn 07/29
Brambila
psych following
no reported hx of IVDU
Acute hypoxic respiratory failure 2/2 suspected pulmonary edema
do not suspect this was congestive heart failure. Could be secondary to hypertensive emergency at that time and patient was also on fluids.
echo with preserved EF
monitor
Weaned off trend, status post extubation 07/29. Now on nasal cannula. Wean oxygen as tolerated. Recently diagnosed MATT. BiPAP when sleeping for now. Patient to follow-up outpatient for his MATT.
Persistent fever, ID following. COVID-negative. Flu neg. UA not suggestive of UTI. Blood culture 07/28 NGTD
Speech following. Okay for regular diet
#DM type 2, with unspecified complications
Accuchecks, insulin SS, DM diet
HgbA1c 7.1
#Hallucinations
#hx of alcohol abuse
N2O withdrawal vs 2/2 sepsis
Thiamine/Folate
Monitor for withdrawal
Neuro and psych eval
Head CT without acute findings
Haldol PRN
Now off Seroquel and started on Haldol
#Morbid obesity
BMI 68.3
decrease calorie intake
Hyponatremia
Monitor
#new diagnosis of DM
Accuchekcs, insulin SS, DM diet
d/c with oral hypoglycemics as HgbA1c 7.1%
#GERD
cont PPI
DVT ppx hep
full code
General: No acute distress
Respiratory: Clear to Auscultation
Cardiac: Regular Rhythm
GI: Soft
Genito-urinary: Brambila
Neuro: Agitated
Psych: Hallucination
I spent a total of 52 minutes with the patient or on the floor. More than 50% of this time involved counseling and coordination of care.
Anticipated Discharge: 24 - 48 hours
Subjective/Interval History
-
Date of Service: July 30, 2024
waxing and waning mental status
Objective Data
-
Labs:
Laboratory Results
07/30/24
05:02
WBC 8.3
Hgb 11.1 L
Hct 35.8 L
Plt Count 259
Sodium 137
Potassium 3.7
Chloride 97 L
Carbon Dioxide 34 H
BUN 7 L
Creatinine 0.7
Glucose 262 H
Calcium 8.5
Total Bilirubin 0.8
AST 99 H
ALT 33
Alkaline Phosphatase 48
Vital Signs:
Vital Signs
Temp Pulse Resp BP Pulse Ox
98.8 F 120 16 116/70 96
07/30/24 11:50 07/30/24 12:00 07/30/24 12:00 07/30/24 12:00 07/30/24 12:00
I&O
07/29/24 07/30/24 07/31/24
06:59 06:59 06:59
Intake Total 3389.3 / 3517.9 2313.0 / 2363.0 300 / 300
Output Total 2670 / 2670 875 / 875 800 / 800
Balance 719.3 / 847.9 1438.0 / 1488.0 -500 / -500
--- NOTE | 2024-07-30 14:45 | CM ---
Addendum entered by Delfino Hernandez 07/30/24 15:46:
CM met with pt again. Pt's mother, brother and cousin at bedside.
PT and OT evaluations noted - acute vs SNF level of care recommended.
CM discussed it with pt and his family, pt expressed his agreement and preferred acute [facility]. CM explained admitting criteria for acute rehab and pt's mother asked acute rehab again giving the fact of his young age, complicated medical issues,
being overweight.
A referral to [facility] acute [facility] made. Awaiting for confirmation.
PM&R consult requested.
D/C plan: [facility] acute [facility]hab.
CM will follow with discharge plan updates as hospitalization progresses
Original Note:
CM following re: discharge planning.
Discussed in Rounds, reviewed pt's chart, met with pt . Per Rounds meeting, pt extubated yesterday, requires 4L NC, keeps eyes closed during interaction, drowsy, continue supportive care.
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
PT and OT will evaluate the pt to determine a level of are at discharge.
D/C plan: uncertain at this time and will depend on pt's progress.
CM will follow with discharge plan updates as hospitalization progresses
--- NOTE | 2024-07-30 14:48 | W.PN.UPDATE ---
Update Note
Progress Note Update
patient seen chart reviewed. the patient remains confused and unable to give coherent hx. he would open his eyes and look at me but was unable to engage substantively. he had baptism reading blaring in the room. attempted to get info from his
mother who was seated at bedside. she said she did not feel he had significant mental health problems prior to recent months. 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 he has had an eating issue for many many years and was talking to a therapist every other week in the past she is not sure if he was still doing that. he does have a hx of etoh bingeing. she said he has had in the past an issue with bzp
and cocaine but he got in trouble last year when neighbors called the police who brought him to ER where they got him calmed down and that likely caused him to start with the nitrous oxide which seems to have lead to psychosis. she said his groin
infection began as a yeast infection which steadily worsened. it would get better, therapy would stop and it would recur. mother says he has always had an interest in latter day but never to this extent. she said he told her the devil had found an
opening in to him recently. mom also said he tends to be a 'conspiracy theorist' discussed with mom that i would be increasing haldol to try and resolve the psychosis . he also has a prn for ativan. will continue to follow
[2024-07-30 15:12] LABS: Venous Blood Gas B.E. 6.4 mmol/L (-4 to +4); Venous Blood Gas HCO3 33.7 mmol/L (22-27); Venous Blood Gas O2 Sat % 85.6 %; Venous Blood Gas pCO2 61 mmHg (35-48); Venous Blood Gas pH 7.35 (7.32-7.43); Venous Blood Gas pO2 55 mmHg (30-50)
--- NOTE | 2024-07-30 15:15 | W.PN.URO.CBU ---
Today's Communication / Plan
-
Continue antibiotics and wound checks
Assessment / Plan
-
29M with morbid obesity, new diagnosis of diabetes, polysubstance abuse, with severe scrotal cellulitis
Presented after 3 days at [facility] with IV antibiotics and no improvement
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
now s/p scrotal exploration 07/25
Findings: Healthy skin with bleeding edges upon incision into region of greatest abnormality/fluctuance at anterior scrotum
No skin necrosis - regions of mottled or dark tissue were sloughing/exfoliation of epidermis with healthy bleeding tissue underneath
No infected fluid or abscess on scrotal exploration, just significant edema
- Continue antibiotics for cellulitis per ID
- Elevate scrotum as able to help decrease edema
- Gis[place] drain removed 07/29 with decreasing drainage of edematous serous fluid from incision
Diagnosis
-
Date of Service: July 30, 2024
-
Post Op Day:
Patient Diagnosis:
Scrotal cellulitis
Sepsis
Polysubstance abuse
Diabetes
Morbid obesity
Subjective
-
No new events
Patient comfortable
Objective
-
Vital Signs
Temp Pulse Resp BP Pulse Ox
98.8 F 114 15 147/84 90
07/30/24 11:50 07/30/24 14:00 07/30/24 14:00 07/30/24 14:00 07/30/24 14:00
Intake and Output
07/29/24 07/30/24 07/31/24
06:59 06:59 06:59
Intake Total 3389.3 / 3517.9 2313.0 / 2363.0 300 / 300
Output Total 2670 / 2670 875 / 875 800 / 800
Balance 719.3 / 847.9 1438.0 / 1488.0 -500 / -500
Intake:
Oral fluids 0 / 0 0 / 0
IV fluids (Total) 3019.3 / 3147.9 1593.0 / 1643.0 300 / 300
D5w 1,000 ml @ 50 mls/hr IV . 1150 / 1200 1200 / 1250 300 / 300
Q20H JORDYN Rx#:[id number]
Fentanyl 482.5 / 502.5 100 / 100
Propofol 1386.8 / 1445.4 293.0 / 293.0
IV piggybacks 150 / 150
Tube feeding 240 / 240
Feeding tube flush amount 330 / 330
Amount instilled into GI Tube ( 370 / 370
Total)
[place] Sump 370 / 370
Output:
Urine, Brambila 2670 / 2670 125 / 125 800 / 800
Urine, Voided 750 / 750
Laboratory Results
07/30/24 05:02
07/30/24 05:02
Physical Exam
-
General - well developed, well nourished, sleeping
Chest - unlabored, on O2
Abdomen - soft, non-tender
Genitalia - improved scrotal erythema and edema
Minimal clear/serous drainage from scrotal incision
No fluctuance, abscess, crepitus, or other signs of worsening skin/perineal infection
--- NOTE | 2024-07-30 16:15 | PTCARENOTE ---
Report given to CHRIST Rios on . Patient taken to [address] [place] in bariatric bed.
[2024-07-30 17:36] LABS: Glucose - Point of Care 136 mg/dl (70-99)
[2024-07-30] MEDS: NOVOLOG FLEXPEN-LOW RESISTANCE SC (18:03)
[2024-07-30] MEDS: DESENEX/MITRAZOL/ZEASORB 1 APPLIC TOPICAL (22:02)
[2024-07-30 22:23] LABS: Glucose - Point of Care 129 mg/dl (70-99)
[2024-07-31] VITALS (9 sets, daily range): BP systolic 133–159; BP diastolic 71–85; PULSE 2–106; O2SAT 93; BMI 67.2
[2024-07-31] MEDS: ZOSYN 50 IV ×5 (00:09→23:51)
[2024-07-31] MEDS: APRESOLINE 10 MG IV ×2 (00:10→17:45)
[2024-07-31] MEDS: DILAUDID 0.5 MG IV (01:19)
[2024-07-31] MEDS: TYLENOL ORAL SOLUTION 650 MG PO (03:17)
[2024-07-31 04:58] LABS: % Basophils 0.3 % (0-2); % Eosinophils 2.2 % (0-6); % Immature Granulocytes 0.5 % (0-0.5); % Lymphocytes 13.7 % (20.5-51.1); % Neutrophils 74.3 % (42.2-75.2); Absolute Eosinophils 0.3 10^3/uL (0-0.7); Absolute Immature Granulocytes 0.1 10^3/uL (0-0.05); Absolute Lymphocytes 1.7 10^3/uL (1.2-3.4); Absolute Monocytes 1.1 10^3/uL (0.1-0.6); Absolute Neutrophils 9.1 10^3/uL (1.4-6.5); Hematocrit 35.2 % (39.0-52.0); Hemoglobin 11.1 g/dL (13.0-18.0); Mean Corp Hgb Conc. 31.5 g/dL (33.0-37.0); Mean Corpuscular Hgb 29.9 pg (27.0-31.0); Mean Corpuscular Volume 94.9 fL (80.0-94.0); Mean Platelet Volume 10.7 fL (7.4-10.4); Nucleated Red Blood Cells % 0 % (-); Platelet Count 278 10^3/uL (130-400); Red Blood Cell Count 3.71 10^6/uL (4.70-6.10); Red Cell Dist. Width 18.4 % (11.5-14.5); White Blood Cell Count 12.3 10^3/uL (4.8-10.8)
[2024-07-31 05:39] LABS: ALT (SGPT) 33 U/L (0-50); AST (SGOT) 54 U/L (17-59); Albumin 3.4 g/dl (3.5-5.0); Alkaline Phosphatase 52 U/L (38-126); Blood Urea Nitrogen 8 mg/dl (9-20); Calcium 8.8 mg/dl (8.4-10.2); Carbon Dioxide 31 mmol/L (22-30); Chloride 95 mmol/L (98-107); Estimated Creatinine Clearance > 125 ml/min; Glucose 133 mg/dl (70-99); Potassium 3.9 mmol/L (3.5-5.1); Sodium 135 mmol/L (135-145); Total Bilirubin 0.9 mg/dl (0.2-1.3); Total Protein 6.3 g/dl (6.3-8.2); eGFR > 60.00
[2024-07-31 07:28] LABS: Glucose - Point of Care 122 mg/dl (70-99)
--- NOTE | 2024-07-31 07:38 | CON.MD ---
Consultation - Medical
-
Referring Provider:�Dr. Lio Chávez
Chief Complaint:�Metabolic encephalopathy
�
History of Present Illness:�29-year-old male with PMH (as below) presented to [facility] on 07/24/2024 after signing out at [facility] with scrotal swelling and discomfort. Patient noted to have agitation and intermittent
hallucinations. He notes daily use of nitrous oxide. He was on antibiotics for the scrotal infection. Noted to have severe scrotal cellulitis with no fluid collection and continued on antibiotics. Brambila catheter maintained. Also with acute
psychosis/acute transient metabolic encephalopathy thought secondary to longstanding nitrous oxide abuse. Recent diagnosis of type 2 diabetes at [place]. History of alcohol use and so placed on thiamine and folic acid supplementation. On
07/25/2024 he had a scrotal exploration by Dr. Jiang noting severe scrotal edema but no purulent drainage or abscess. Initially remained intubated after procedure but eventually extubated. Continues with persistent fevers of unknown etiology.
Was not having urine output from the Brambila. Nursing did a bladder scan and noted that patient had retention. Replaced Brambila with good output. Patient overall feeling better.
�
Past Medical History:�Super morbid obesity, substance abuse, newly diagnosed type 2 diabetes, MATT
Procedure History:�Right ankle surgery, right wrist surgery, knee arthroscopy.
Family History:�CAD (Maternal grandmother + maternal aunt), Cancer (Maternal grandfather (unknown type)), Diabetes (Maternal grandfather), Hypertension (Mother) and Other (Father: COPD/smoking history)
�
Social History:�
Functional Level Premorbidly:�Independent with all activities�
Functional Level Currently:�Supervision bed mobility
�
Tobacco:�Denies�
Alcohol:�Denies
Drug use:�Smokes marijuana occasionally. Regular use of nitrous oxide. History of benzodiazepine and cocaine use.
Lives with:�Alone
24-hour assistance available:�No
Number of floors:�1 floor apartment
# steps to enter:�12
Driving:�Yes
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
�
�
Allergies:�
Allergy/AdvReac Type Severity Reaction Status Date / Time
No Known Allergies Allergy Verified 03/17/21 13:42
�
Review of Systems:�
Constitutional: (x) abNormal _fatigue
Eye: (x) Normal _
Ear/Nose/Throat: (x) Normal _
Respiratory: (x) Normal _
Cardiovascular: (x) Normal _
Gastrointestinal: (x) abNormal _constipated, cannot recall last bowel movement
Genitourinary: (x) abNormal _Foley catheter
Musculoskeletal: (x) Normal _
Integumentary: (x) abNormal _scrotal infection
Neurologic: (x) Normal _
Psychiatric: (x) Normal _
Endocrine: (x) Normal _
Hematologic/Lymphatic: (x) Normal _
Allergic/Immunologic: (x) Normal _
�
Medications:�
Active Current Visit Medication List
Category Date Time Status
0.9% Sodium Chloride [Nss (Preservative Free)] Med 07/25/24 06:41 Active
0.5 ml IV Q4HPRN PRN
0.9% Sodium Chloride [Nss (Preservative Free)] Med 07/30/24 12:00 Active
10 ml IV DAILY
Acetaminophen [Tylenol Oral Solution] Med 07/31/24 03:14 Active
650 mg PO Q4HPRN PRN
Dextrose 50%-Water [Dextrose 50% Syringe] Med 07/26/24 11:47 Active
12.5 grams IV [id number] PRN
Enoxaparin Sodium [Lovenox] Med 07/25/24 08:00 Active
60 mg SC BID
Flush (0.9% Sodium Chloride) [Flush (Nss)] Med 07/25/24 07:00 Active
See Dose Instructions IV PER PROTOCOL
Glucagon [GlucaGen] Med 07/26/24 11:47 Active
1 mg IM PRN PRN
HYDROmorphone [Dilaudid] Med 07/29/24 14:01 Active
0.5 mg IV Q4HPRN PRN
Haloperidol Lactate [Haldol] Med 07/31/24 08:00 Active
2 mg IV DAILY
Haloperidol Lactate [Haldol] Med 07/29/24 11:46 Active
2 mg IV Q8HPRN PRN
Haloperidol Lactate [Haldol] Med 07/31/24 22:00 Active
5 mg IV HS
HydrALAZINE [Apresoline] Med 07/26/24 00:35 Active
10 mg IV Q4HPRN PRN
Insulin Aspart Corrective Low [Novolog Flexpen-Low Med 07/30/24 16:30 Active
Resistance]
See Protocol SC AC
Lorazepam [Ativan] Med 07/29/24 11:47 Active
1 mg IV Q4HPRN PRN
Miconazole Nitrate [Desenex/Mitrazol/Zeasorb] Med 07/26/24 08:28 Active
See Dose Instructions TOPICAL BID
Pantoprazole [Protonix IV] Med 07/30/24 12:00 Active
40 mg IV DAILY
Piperacillin/Tazo 3.375 Gram [Zosyn] Med 07/29/24 12:00 Active
3.375 gram in 50 ml IV Q6
Polyethylene Glycol Powder [Miralax] Med 07/26/24 08:00 Active
17 grams TUBE DAILY
�
Vitals:�
Temp Pulse Resp BP Pulse Ox
99.7 F 112 18 157/77 97
07/31/24 07:15 07/31/24 08:36 07/31/24 07:15 07/31/24 08:36 07/31/24 07:15
Height 5 ft 10 in
Actual Weight 212.463 kg
Body Mass Index (BMI) 67.2
�
Physical Exam:�
General Appearance/Observation: Well-developed, well-nourished morbidly obese male in no apparent distress.�
Pain/Comfort Assessment: Denies�currently
Mood/Affect: Appropriate�
�
Integumentary/Operative Site:�Scrotum not evaluated
�� Pressure Ulcer Evaluation: absent over heels.�
�
Eyes: Conjunctiva/Lids: normal���� Pupils: pupils equal round and reactive to light
Ears/Nose/Throat: oral mucosa moist,� throat clear.������������ Lips/Teeth/Gums: normal�
Cardiovascular: Heart: regular, no murmur�
Pulses: dorsalis pedis 2+ bilaterally�
Respiratory: Respiratory Effort/Chest Expansion: normal������� Auscultation: Clear to auscultation bilaterally�
Gastrointestinal: abdomen not tender, no distension, normal abdominal bowel sounds
Genitourinary: Brambila�with abraham-colored urine, clear
Extremities:�Edema: Slight bilateral lower extremities�cyanosis: None�
Neurology Exam:
Orientation: Alert, Oriented to self, Time, Place�
Memory: Intact for recent medical concerns
Comprehension: Intact
Two step command: Intact
Cranial Nerves:
�� CNII:�Pupillary light reflex: Intact���
�� CN VII:�Facial movement: Symmetric
�� CN VIII:�Hearing: Normal
�� CN IX/X:�Speech & swallow: Normal,�Position of Uvula: Midline
�� CN XII:�Tongue protrusion: Midline
Sensory:
�� Light touch: Intact in bilateral upper and lower extremities
Musculoskeletal:Motor: (Manual muscle scale 0-5)�
Muscle SA EF WE EE FF FA HF KE DF EHL PF
Right� 4 5 5 5 2 5 5 5
Left 4 5 5 5 2 5 5 5
�
Tone: Normal in all extremities�
Range of Motion: Passively within normal limits in all extremities�
�
Lab Results
Laboratory Data
07/31/24 04:42
07/31/24 04:42
PT 15.0 Sec (11.4-14.6) H 07/25/24 06:47
INR 1.15 07/25/24 06:47
APTT 31.1 Sec (23.4-35.0) 07/25/24 06:47
Total Bilirubin 0.9 mg/dl (0.2-1.3) 07/31/24 04:42
Direct Bilirubin 0.2 mg/dl (0.0-0.4) 07/26/24 03:48
AST 54 U/L (17-59) 07/31/24 04:42
ALT 33 U/L (0-50) 07/31/24 04:42
Alkaline Phosphatase 52 U/L (38-126) 07/31/24 04:42
Total Protein 6.3 g/dl (6.3-8.2) 07/31/24 04:42
Albumin 3.4 g/dl (3.5-5.0) L 07/31/24 04:42
�
Diagnostic Results:�as per HPI�
�
Assessment
29-year-old male PMH (Super morbid obesity, substance abuse, newly diagnosed type 2 diabetes, MATT) with persistent scrotal cellulitis presented to [facility] 07/24/2024 with severe scrotal cellulitis and altered mental status with ADL and
ambulatory dysfunction.
Plan�
PM&R�PT/OT to increase independence with ADLs, improve balance, coordination, endurance, strength, mobility, community reintegration, decreased burden of care on others and family education.�
-Out of bed as able
Scrotal cellulitis with necrotic tissue: Zosyn per infectious disease. Had scrotal exploration without abscess.
Persistent fevers: Unclear etiology, now with leukocytosis. Per ID.
Altered mental status/hallucinations: Thought to be from metabolic encephalopathy versus withdrawal. Currently on Haldol with as needed lorazepam.
DM II: Accu-Cheks, insulin sliding scale.�
Macrocytic anemia: Normal B12 and folate.� Continue to monitor.�
Skin: monitor for pressure sores/rashes/lesions.�
Pain: acetaminophen or IV Dilaudid as needed.� Would switch to oral pain medications and limit opioids.
Bowel: Patient notes constipation. Colace and Senna, PRN bisacodyl.�
Bladder: Has Brambila
Substance abuse: cessation education, offering of outpatient alcohol abuse program�
GI Prophylaxis: Pantoprazole�
DVT Prophylaxis: Mechanical and Lovenox 60 mg twice daily.�
Pulmonary: Incentive spirometry�
Super morbid obesity: Continue to group counselor patient about diet adjustments to control obesity. Body habitus and increased force to move body and extremities causes further difficulty with functional tasks.�
Safety: Continue to reinforce assistance with all transfers.�
Code Status:� Full code
Dispo�(date/plan/equipment needs): Home with family care.� Social history reviewed.�
Functional and Medical Goals:�Modified Independent with ADL�s, ambulation, transfers�
Discharge Destination:�Not currently appropriate for transfer to rehabilitation. Anticipate group home facility.
�
Summary of recommendations:
-�Discharge Destination:��Not currently appropriate for transfer to rehabilitation. Anticipate group home facility.
Pain: acetaminophen or IV Dilaudid as needed.� Would switch to oral pain medications and limit opioids.
PM&R-Out of bed as able
Bowel: Patient notes constipation. Colace and Senna, PRN bisacodyl.��
Thank you for allowing me to care for your patient. Please contact me with any questions or concerns.
[2024-07-31] MEDS: NOVOLOG FLEXPEN-LOW RESISTANCE SC ×2 (08:00→13:09)
[2024-07-31] MEDS: LOPRESSOR 5 MG IV (08:36)
[2024-07-31] MEDS: NSS (PRESERVATIVE FREE) 10 ML IV (08:37)
[2024-07-31] MEDS: PROTONIX IV 40 MG IV (08:37)
[2024-07-31] MEDS: HALDOL 2 MG IV (08:37)
[2024-07-31] MEDS: LOVENOX 60 MG SC ×2 (08:37→20:45)
[2024-07-31] MEDS: MIRALAX TUBE (08:38)
[2024-07-31] MEDS: DESENEX/MITRAZOL/ZEASORB 1 APPLIC TOPICAL ×2 (08:39→20:47)
[2024-07-31 09:47] LABS: Troponin I < 0.012 ng/ml
--- NOTE | 2024-07-31 10:18 | W.PN.ID1 ---
Date of Service
Date of Service: July 31, 2024
Today's Communication
Continue Zosyn for now.
Assessment / Plan
# Scrotal edema/cellulitis resolving. s/p OR scrotal exploration (NO Rustam's)
# Fever overall trending down.
- Unclear source. ?drug fever - Quetiapine dc'd 07/29 with downtrend of fevers.
- COVID19, Influenza neg
- Repeat blood cx's x 2, neg to date
- UA neg
- Sputum cx: non productive
- Leukocytosis today. No diarrhea.
- s/p cefazolin (x4d)
- Continue empiric Zosyn (d3) for now.
- Follow temps.
# Change in mental status resolving
# nitrous oxide abuse
# Former alcohol abuse
-On haldol
# New dx of DM2.
# Conditions ASSESSOR
Diabetes mellitus
Class III obesity BMI 62
MATT
Past Hx Substance abuse (Valium)
Right hand ORIF
Right Ankle Surgery
Knee Arthroscopy
Chief Complaint
-: Fever and Cellulitis (scrotum)
Subjective / Review of Systems
Scrotum no longer sore.
Feels tired.
Review of Systems: No Chills, No Headache, No Cough, No Chest Pain, No Abdominal Pain, No Nausea, No Vomiting and No Diarrhea
Vital Signs / Physical Exam
Vital Signs
Vital Signs
Temp Pulse Resp BP Pulse Ox
99.7 F 112 18 157/77 97
07/31/24 07:15 07/31/24 08:36 07/31/24 07:15 07/31/24 08:36 07/31/24 07:15
Selected Entries
07/31/24
03:33
Temp 101.1 F H
Physical Exam
Constitutional: No Acute Distress and Obese
Cardiovascular: Regular Rate and S1/S2
Pulmonary: Clear
Gastrointestinal: Soft, Non Tender and Non Distended
Genito-Urinary: Brambila, Clear Urine (dark) and Other (Scrotum with resolving erythema/edema)
Extremities: Negative Edema
Neurological: AO x 3
Psychological: Calm
Objective Data
Lab Data
Lab Results
07/31/24 04:42
07/31/24 04:42
PT 15.0 Sec (11.4-14.6) H 07/25/24 06:47
INR 1.15 07/25/24 06:47
APTT 31.1 Sec (23.4-35.0) 07/25/24 06:47
Estimated Creat Clear > 125 ml/min 07/31/24 04:42
Lactic Acid Cancelled 07/25/24 04:15
Total Bilirubin 0.9 mg/dl (0.2-1.3) 07/31/24 04:42
AST 54 U/L (17-59) 07/31/24 04:42
ALT 33 U/L (0-50) 07/31/24 04:42
Alkaline Phosphatase 52 U/L (38-126) 07/31/24 04:42
Most recent labs reviewed.
Micro Results:
07/28/24 12:08 Blood Culture - Preliminary
Blood/Venous No Growth in 48 hours- Final report to follow
07/28/24 11:01 Blood Culture - Preliminary
Blood/Venous No Growth in 48 hours- Final report to follow
07/25/24 00:30 Blood Culture - Final
Blood/Venous No Growth - Final Report
07/25/24 00:31 Blood Culture - Final
Blood/Venous No Growth - Final Report
07/28/24 11:09 Influenza Types A & B (AQUILES) - Final
Nasal Swab Negative for Influenza A & B, NAAT
Negative results must be combined with clinical observations
and patient history.
Nucleic Acid Amplification test (NAAT)performed on the
[employer] platform.
07/25/24 06:47 MRSA Screen - Final
Nose No Methicillin Resistant Staphylococcus aureus isolated.
07/25/[address]: Marked scrotal wall edema suggesting cellulitis. No subcutaneous gas identified to suggest Rustam's gangrene.
07/25/24 CXR: Mild to moderate CHF.
--- NOTE | 2024-07-31 11:57 | W.PN.PUL3 ---
Today's Communication / Plan
-
Continue BiPAP at bedtime and with naps while in the hospital
Avoid sedatives
Wean off FiO2
No additional recommendation
Sign off
Assessment
-
Assessment: 29-year-old male with a past medical history of hypertension, history of alcohol abuse, MATT not yet started on treatment, newly diagnosed DM type II (as per patient), and chronic lipid abuse who presents with testicular pain and
swelling. He was at [facility] prior to arrival and was apparently agitated they are requiring Precedex, and then he ended up leaving [facility] as he was unhappy with their care, although he was reportedly treated with IV antibiotics and topical
therapy for his scrotal infection. He was having hallucinations upon arrival here to [facility]. He said he has been having this scrotal swelling and redness for about 6 months, with progressively worsening pain, swelling and redness
over the last 3-4 weeks. It has been causing difficulty walking around due to discomfort and swelling. Initially in the ER he was afebrile to 99.8 �F, tachycardic to 114, respiratory rate 24, BP 189/120, and saturating 94% on room air. Initial
labs showed normal WBC at 7.5, Hb 11.3, lactate WNL at 1.6, CK4 3, urinalysis with trace leukocyte esterase, UDS positive for benzodiazepines, and marijuana. Beta hydroxybutyrate was elevated at 1.97 and he had +1 ketones in his urine. Of note his
serum bicarbonate level was normal at 23 and his anion gap was 15. Blood cultures were collected. Pelvic CT showed marked scrotal wall edema suggesting cellulitis with no subcutaneous gas to suggest Rustam's gangrene. CXR showed concern for
mild�moderate CHF. Of note prior stress echo in March 2021 showed an estimated EF of 55 to 60% with a normal stress echo and normal hemodynamic response to exercise. In the ER he was given 1 L NS 0.9%, IV vancomycin/Zosyn, 1 mg Ativan and
Folvite. Due to his severe scrotal cellulitis with hallucinations he was admitted to the ICU for further care and boiler water tester services consulted for additional management/recommendations.
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
Pulmonary following 07/31/2024. Chronic hypercapnic respiratory failure likely obstructive sleep apnea/obesity hypoventilation syndrome.
Impression:
# Chronic from obesity Due to untreated obstructive sleep apnea/obesity hypoventilation syndrome.
# Hypoxemia: Likely subsegmental atelectasis/immobility/
-
#Severe scrotal cellulitis without subcutaneous gas to suggest Rustam's gangrene s/p scrotal exploration (OR day: 07/25/2024)
#Ventilator dependent respiratory failure (came back intubated from the OR on 07/25/2024)
Extubated 07/29/2024
#Acute psychosis/altered mental status likely due to his longstanding Whippet abuse (Nitrous Oxide)
#Newly diagnosed DM type II (per patient) � HbA1c: 7.1 on 07/25/2024
#Very severe morbid obesity
#Newly diagnosed MATT not yet started on treatment (per patient)
#Anemia
#Elevated beta hydroxybutyrate with +1 urine ketones and anion gap of 15 � not consistent with DKA and likely due to starvation ketoacidosis (mild)
#Elevated CK likely due to his severe scrotal cellulitis
#Abnormal urinalysis with trace leukocyte esterase
Plan/recommendations:
Chronic hypercapnic respiratory failure likely obesity hypoventilation syndrome/untreated obstructive sleep apnea
While in the hospital continue BiPAP 12/ with naps and at bedtime.
Upon discharge patient advised to follow-up for a sleep study and set up proper therapy.
Avoid sedatives as able
Weight loss would help as well
-
Patient extubated 07/29/2024
Mild hypoxemic respiratory insufficiency. On 4 L nasal cannula. Suspect due to subsegmental atelectasis coming mobility.
Chest x-ray consistent with bibasilar atelectasis
Encourage incentive spirometry
Increase mobility as able.
No evidence for pulmonary infection.
Wean oxygen as able.
-
Continues to have episodes of hallucinations, agitation
Patient with history of nitrous oxide use. Not sure whether there may be polysubstance abuse or alcohol use as well
Friend at bedside states patient may be using ketamine at times
Patient with psychotic symptoms preadmission follow psychiatry recommendations.
-
Scrotal edema/cellulitis resolving. s/p OR scrotal exploration (NO Rustam's)
Antibiotics per infectious disease.
covid and flu negative 07/28
-
Dobbhoff tube placed, tolerating tube feeds. Continue for now
Blood sugars normal, blood sugar this morning likely artifactual
DVT prophylaxis: Remains on low molecular weight heparin, 60 mg twice a day due to weight
GI prophylaxis: Not indicated at this time
-
From the pulmonary perspective no additional recommendations.
Continue BiPAP therapy while in the hospital.
Patient advised to follow-up with his sleep doctor. He does not follow-up locally in our office. Information could be make available if he does not have any doctors.
-
Data:
Pelvic CT with IV contrast 07/25/2024:
Marked scrotal wall edema suggesting cellulitis. No subcutaneous gas identified to suggest Rustam's gangrene. Clinical correlation is needed, however.
Limited evaluation of pelvic viscera is grossly unremarkable. Urinary bladder is decompressed around a Brambila catheter and not well evaluated. Normal appendix.
Visualized osseous structures are unremarkable. Evaluation of additional soft tissue structures such as ligaments and tendons is limited by CT. Grossly, no abnormalities noted.
CXR 07/25/2024: Mild to moderate CHF.
CXR 07/26/2024: Low inspiratory volumes. Suspected pulmonary vascular congestion; hazy opacity at the left lung base, which may represent subsegmental atelectasis, pneumonia, or alveolar pulmonary edema.
Subjective Data
-
Date of Service:
Date of Service: July 31, 2024
Chief Complaint: Pulmonary Follow Up (Acute respiratory failure/chronic hypercapnic respiratory failure)
Objective Data
Data Reviewed
Vital Signs / I&O / Oxygen:
Vital Signs
Temp Pulse Resp BP Pulse Ox
99.7 F 112 18 157/77 97
07/31/24 07:15 07/31/24 08:36 07/31/24 07:15 07/31/24 08:36 07/31/24 07:15
Intake and Output
07/30/24 07/31/24 08/01/24
06:59 06:59 06:59
Intake Total 2313.0 / 2363.0 855 / 855
Output Total 875 / 875 1425 / 1425
Balance 1438.0 / 1488.0 -570 / -570
SaO2 [ASV] 94
SaO2 [CPAP/PSV] 95
SaO2 [A/C] 95
SaO2 97
Nasal Cannula flow liters per 4
minute
Labs/Micro/Reports
Lab Data
07/31/24 04:42
07/31/24 04:42
Microbiology
07/28/24 11:01 Blood/Venous Blood Culture - Preliminary
No Growth in 72 hours- Final report to follow
07/28/24 12:08 Blood/Venous Blood Culture - Preliminary
No Growth in 48 hours- Final report to follow
07/25/24 00:30 Blood/Venous Blood Culture - Final
No Growth - Final Report
07/25/24 00:31 Blood/Venous Blood Culture - Final
No Growth - Final Report
07/28/24 11:09 Nasal Swab Influenza Types A & B (AQUILES) - Final
Negative for Influenza A & B, NAAT
Negative results must be combined with clinical observations
and patient history.
Nucleic Acid Amplification test (NAAT)performed on the
[employer] platform.
--- NOTE | 2024-07-31 12:32 | W.PN.UPDATE ---
Update Note
Progress Note Update
patient seen chart reviewed. spoke with nursing and with dr funes. the patient remains much the same. still with delusions of a baptism nature. nursing does tell me it has not been interfering with his care. he is not very active however and
nursing says it is a struggle to get him to move at all. i suspect movement causes a lot of pain. will switch haldol to po at this point.
--- NOTE | 2024-07-31 12:35 | W.PN.HOSP.TC ---
Today's Communication/Plan
-
Monitor vital signs and see plan
PT/OT
Continue with Haldol per psychiatry
Follow fever curve
Continue with antibiotics
Monitor leukocytosis
Assessment / Plan
Assessment / Plan
29yo M with apparent PMHX of DM, morbidly obese, N2O abuse came after he left AMA from [facility] (did not like how he was treated there), where he was treated for scrotal infection. He had inflammation in his private area for a long time now. CT showed
scrotal cellulitis, concern for initial stages of Rustam gangrene. Also apparently had episodes of hallucinations in [facility] treated with precedex drip and Ativan. Also new onset DM
A/P
#Scrotal cellulitis with sepsis (fever, hallucinations)
suspect TME 2/2 Sepsis; also does appear to have component of withdrawal
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
Bcx NTD
Urology con: s/p scrotal exploration on 07/25/24 - found cellulitis only, intubated after procedure due to possible withdrawal. scrotal drain dc'ed 07/29
Reiki Practitioner following, vent management per pulmonary. s/p extubation 07/29. Now on 4 L. hallucinating at times with psychosis. Waxing and waning mental status
Off sedation
Haldol per psychiatry
ID following: Antibiotics switched to Zosyn 07/29
Brambila
psych following
no reported hx of IVDU
Acute hypoxic respiratory failure 2/2 suspected pulmonary edema
do not suspect this was congestive heart failure. Could be secondary to hypertensive emergency at that time and patient was also on fluids.
echo with preserved EF
monitor
Weaned off trend, status post extubation 07/29. Now on nasal cannula. Wean oxygen as tolerated. Recently diagnosed MATT. BiPAP when sleeping for now. Patient to follow-up outpatient for his MATT.
Persistent fever, ID following. COVID-negative. Flu neg. UA not suggestive of UTI. Blood culture 1/28 NGTD
Speech following. Okay for regular diet
#DM type 2, with unspecified complications
Accuchecks, insulin SS, DM diet
HgbA1c 7.1
#Hallucinations
#hx of alcohol abuse
2/ N20
Thiamine/Folat
Monitor for withdrawal
psych following
Head CT without acute findings
Haldol PRN
Now off Seroquel and started on Haldol
#Morbid obesity
BMI 68.3
decrease calorie intake
Hyponatremia
Monitor
#new diagnosis of DM
Accuchekcs, insulin SS, DM diet
d/c with oral hypoglycemics as HgbA1c 7.1%
#GERD
cont PPI
DVT ppx hep
full code
PT/OT recommending possible acute rehab, physiatry consulted
General: No acute distress
Respiratory: Clear to Auscultation
Cardiac: Regular Rhythm
GI: Soft
Genito-urinary: Brambila
Neuro: Agitated
Psych: calm
Anticipated Discharge: 24 - 48 hours
Subjective/Interval History
-
Date of Service: July 31, 2024
Knows he is in the hospital
Objective Data
-
Labs:
Laboratory Results
07/31/24
04:42
WBC 12.3 H
Hgb 11.1 L
Hct 35.2 L
Plt Count 278
Sodium 135
Potassium 3.9
Chloride 95 L
Carbon Dioxide 31 H
BUN 8 L
Creatinine 0.7
Glucose 133 H
Calcium 8.8
Total Bilirubin 0.9
AST 54
ALT 33
Alkaline Phosphatase 52
Vital Signs:
Vital Signs
Temp Pulse Resp BP Pulse Ox
98.8 F 103 18 140/83 93
07/31/24 11:27 07/31/24 11:27 07/31/24 11:27 07/31/24 11:27 07/31/24 11:27
I&O
07/30/24 07/31/24 08/01/24
06:59 06:59 06:59
Intake Total 2313.0 / 2363.0 855 / 855
Output Total 875 / 875 1425 / 1425
Balance 1438.0 / 1488.0 -570 / -570
[2024-07-31 13:09] LABS: Glucose - Point of Care 138 mg/dl (70-99)
--- NOTE | 2024-07-31 15:06 | CM ---
Met with patient/mother [facility] unable to accept - discussed other options
PT rec acute vs SNF
Additional acute rehab referral sent to [facility]
Willl require ins authorization
PLAN: acute rehab, pending bed availability, will need ins auth
--- NOTE | 2024-07-31 15:53 | W.PN.URO.CBU ---
Today's Communication / Plan
-
Continue antibiotics
Flush/change stovall PRN
Assessment / Plan
-
29M with morbid obesity, new diagnosis of diabetes, polysubstance abuse, with severe scrotal cellulitis
Presented after 3 days at [facility] with IV antibiotics and no improvement
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
now s/p scrotal exploration 07/25
Findings: Healthy skin with bleeding edges upon incision into region of greatest abnormality/fluctuance at anterior scrotum
No skin necrosis - regions of mottled or dark tissue were sloughing/exfoliation of epidermis with healthy bleeding tissue underneath
No infected fluid or abscess on scrotal exploration, just significant edema
- Continue antibiotics for cellulitis per ID
- Elevate scrotum as able to help decrease edema
- Hurley drain removed 07/29 with resolved drainage of edematous serous fluid from incision
- As of 07/31, wound is fully closed and minimal scrotal erythema. Some regions of granulation tissue on scrotal skin which are healing prior regions of superficial sloughing. No fluctuance or collections. Edema still present but greatly decreased
- Some catheter obstruction yesterday with debris requiring stovall change
- Decreased urine output today with 200cc on bladder scan - added orders for flushing PRN and upsize to 18Fr if still poorly draining
- Catheter removal when patient's mental status improves/when ambulatory
Diagnosis
-
Date of Service: July 31, 2024
-
Post Op Day:
Patient Diagnosis:
Scrotal cellulitis
Sepsis
Polysubstance abuse
Diabetes
Morbid obesity
Subjective
-
catheter obstruction with poor output yesterday
Objective
-
Vital Signs
Temp Pulse Resp BP Pulse Ox
98.8 F 103 18 140/83 93
07/31/24 11:27 07/31/24 11:27 07/31/24 11:27 07/31/24 11:27 07/31/24 11:27
Intake and Output
07/30/24 07/31/24 08/01/24
06:59 06:59 06:59
Intake Total 2313.0 / 2363.0 855 / 855
Output Total 875 / 875 1425 / 1425
Balance 1438.0 / 1488.0 -570 / -570
Intake:
Oral fluids 0 / 0 480 / 480
IV fluids (Total) 1593.0 / 1643.0 300 / 300
D5w 1,000 ml @ 50 mls/hr IV . 1200 / 1250 300 / 300
Q20H JORDYN Rx#:[id number]
Fentanyl 100 / 100
Propofol 293.0 / 293.0
IV piggybacks 150 / 150 75 / 75
Tube feeding 240 / 240
Feeding tube flush amount 330 / 330
Output:
Urine, Stovall 125 / 125 1425 / 1425
Urine, Voided 750 / 750
Other:
Number of unmeasured liquid
stools
Rectum 1
Laboratory Results
07/31/24 04:42
07/31/24 04:42
Physical Exam
-
General - well developed, somnolent
Chest - clear unlabored on O2
Abdomen - soft, non-tender
Genitalia - well healing scrotal incision
Near resolved cellulitis/erythema
[2024-07-31 17:33] LABS: Glucose - Point of Care 172 mg/dl (70-99)
--- NOTE | 2024-07-31 18:02 | PTCARENOTE ---
pt had small drainage/output from stovall, bladder scanned and 250 in the bladder, replaced forley from #16 to #18 and it drained 350 ml with insertion. The tip of the Stovall removed had a lot of debries accumulated, failed irrigation.
[2024-07-31] MEDS: NOVOLOG FLEXPEN-LOW RESISTANCE 1 UNITS SC (18:20)
[2024-07-31] MEDS: HALDOL PO (21:38)
[2024-07-31 21:44] LABS: Glucose - Point of Care 162 mg/dl (70-99)
[2024-08-01 03:00] VITALS: BP 141/78
[2024-08-01 05:53] LABS: % Basophils 0.4 % (0-2); % Eosinophils 3.4 % (0-6); % Immature Granulocytes 0.6 % (0-0.5); % Lymphocytes 22.7 % (20.5-51.1); % Monocytes 11.2 % (1.7-9.3); % Neutrophils 61.7 % (42.2-75.2); Absolute Eosinophils 0.3 10^3/uL (0-0.7); Absolute Immature Granulocytes 0.1 10^3/uL (0-0.05); Absolute Lymphocytes 1.9 10^3/uL (1.2-3.4); Absolute Neutrophils 5.3 10^3/uL (1.4-6.5); Hematocrit 33.5 % (39.0-52.0); Hemoglobin 10.8 g/dL (13.0-18.0); Mean Corp Hgb Conc. 32.2 g/dL (33.0-37.0); Mean Corpuscular Hgb 30.3 pg (27.0-31.0); Mean Corpuscular Volume 94.1 fL (80.0-94.0); Nucleated Red Blood Cells % 0 % (-); Platelet Count 279 10^3/uL (130-400); Red Blood Cell Count 3.56 10^6/uL (4.70-6.10); Red Cell Dist. Width 18.3 % (11.5-14.5); White Blood Cell Count 8.6 10^3/uL (4.8-10.8)
[2024-08-01] MEDS: ZOSYN 50 IV ×4 (05:59→23:22)
[2024-08-01 06:03] LABS: ALT (SGPT) 28 U/L (0-50); AST (SGOT) 34 U/L (17-59); Albumin 3.4 g/dl (3.5-5.0); Alkaline Phosphatase 50 U/L (38-126); Blood Urea Nitrogen 9 mg/dl (9-20); Calcium 8.7 mg/dl (8.4-10.2); Carbon Dioxide 34 mmol/L (22-30); Chloride 94 mmol/L (98-107); Estimated Creatinine Clearance > 125 ml/min; Glucose 130 mg/dl (70-99); Potassium 3.4 mmol/L (3.5-5.1); Sodium 134 mmol/L (135-145); Total Bilirubin 0.8 mg/dl (0.2-1.3); Total Protein 6.2 g/dl (6.3-8.2); eGFR > 60.00
[2024-08-01 07:20] VITALS: BP 103/79
[2024-08-01 07:59] LABS: Glucose - Point of Care 138 mg/dl (70-99)
[2024-08-01] MEDS: NOVOLOG FLEXPEN-LOW RESISTANCE SC ×3 (08:17→17:19)
[2024-08-01] MEDS: PROTONIX 40 MG PO (08:18)
[2024-08-01] MEDS: DESENEX/MITRAZOL/ZEASORB 1 APPLIC TOPICAL ×2 (08:19→21:20)
[2024-08-01] MEDS: MIRALAX 17 GRAMS TUBE (08:19)
[2024-08-01] MEDS: LOVENOX 60 MG SC ×2 (08:19→20:09)
[2024-08-01] MEDS: KCL 20 MEQ PO (08:25)
--- NOTE | 2024-08-01 10:43 | W.PN.UPDATE ---
Update Note
Progress Note Update
29 y/lo single morbidly obese male admitted 07/25/[address] [facility] and diagnosed with scrotal cellulitis and psychosis. He was also found to have DM and MATT. Had hallucinations, was paranoid and religiously preoccupied. He was
abusing N2O and has a past history of alcohol and cocaine abuse (no alcohol since January by his report). 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 Graduate of [employer].
He has been converted to oral haloperidol yesterday.
Reports he slept fairly well.
He was easily roused; was alert, completely oriented, speech is clear and goal-directed. Makes good eye contact and is pleasant and appropriate. Denies any current hallucinations. Whlie he is interested in being more taoism now, he is not
religiously preoccupied (a Bible is on his tray table). No paranoia and happy with this hospitalization at .
Will continue Haldol 2 mg. AM and 5 mg. HS for now + PRN, but suspect he will be able to wean off of this antipsychotic without recurrence of symptoms. Encourage sobriety (he is motivated for this, including marijuana for which he has a medical
card).
Psychiatry will follow.
--- NOTE | 2024-08-01 11:28 | W.PN.HOSP.TC ---
Today's Communication/Plan
-
monitor vitals
see plan
Haldol per psychiatry
PT/OT
Maintain Brambila per urology
Continue antibiotics
Follow fever curve
Wean oxygen as tolerated
Assessment / Plan
Assessment / Plan
29yo M with apparent PMHX of DM, morbidly obese, N2O abuse came after he left AMA from [facility] (did not like how he was treated there), where he was treated for scrotal infection. He had inflammation in his private area for a long time now. CT showed
scrotal cellulitis, concern for initial stages of Rustam gangrene. Also apparently had episodes of hallucinations in [facility] treated with precedex drip and Ativan. Also new onset DM
A/P
#Scrotal cellulitis with sepsis (fever, hallucinations)
suspect TME 2/2 Sepsis; also does appear to have component of withdrawal
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
Bcx NTD
Urology con: s/p scrotal exploration on 07/25/24 - found cellulitis only, intubated after procedure due to possible withdrawal. scrotal drain dc'ed 07/29
Machine Pecan Picker following, vent management per pulmonary. s/p extubation 07/29. Now on 4 L. Wean oxygen as tolerated. Mental status much better today. Does not appear to have any hallucination at this time. Waxing and waning mental status. now
improving
Off sedation
Haldol per psychiatry
ID following: Antibiotics switched to Zosyn 07/29
Brambila; remove when able per urology
psych following
no reported hx of IVDU
Acute hypoxic respiratory failure 2/2 suspected pulmonary edema
do not suspect this was congestive heart failure. Could be secondary to hypertensive emergency at that time and patient was also on fluids.
echo with preserved EF
monitor
Weaned off trend, status post extubation 07/29. Now on nasal cannula. Wean oxygen as tolerated. Recently diagnosed MATT. BiPAP when sleeping for now. Patient to follow-up outpatient for his MATT.
Persistent fever, ID following. COVID-negative. Flu neg. UA not suggestive of UTI. Blood culture 07/28 NGTD
Speech following. Okay for regular diet
#DM type 2, with unspecified complications
Accuchecks, insulin SS, DM diet
HgbA1c 7.1
#Hallucinations
#hx of alcohol abuse
08/02 N20
Thiamine/Folat
Monitor for withdrawal
psych following
Head CT without acute findings
Haldol PRN and standing
Now off Seroquel and started on Haldol
#Morbid obesity
BMI 68.3
decrease calorie intake
Hyponatremia
Monitor
#new diagnosis of DM
Accuchekcs, insulin SS, DM diet
d/c with oral hypoglycemics as HgbA1c 7.1%
#GERD
cont PPI
DVT ppx hep
full code
PT/OT recommending possible acute rehab, physiatry saw; anticipate more appropriate for skilled
General: No acute distress
Respiratory: Clear to Auscultation
Cardiac: Regular Rhythm
GI: Soft
Genito-urinary: Brambila
Neuro: non focal
Psych: calm
Anticipated Discharge: Today
Subjective/Interval History
-
Date of Service: August 01, 2024
denies pain
Objective Data
-
Labs:
Laboratory Results
08/01/24
05:29
WBC 8.6
Hgb 10.8 L
Hct 33.5 L
Plt Count 279
Sodium 134 L
Potassium 3.4 L
Chloride 94 L
Carbon Dioxide 34 H
BUN 9
Creatinine 0.6 L
Glucose 130 H
Calcium 8.7
Total Bilirubin 0.8
AST 34
ALT 28
Alkaline Phosphatase 50
Vital Signs:
Vital Signs
Temp Pulse Resp BP Pulse Ox
98.5 F 107 17 103/79 93
08/01/24 07:20 08/01/24 07:20 08/01/24 07:20 08/01/24 07:20 08/01/24 07:20
I&O
07/31/24 08/01/24 08/02/24
06:59 06:59 06:59
Intake Total 855 / 855 680 / 680
Output Total 1425 / 1425 1150 / 1150
Balance -570 / -570 -470 / -470
[2024-08-01 11:37] LABS: Glucose - Point of Care 141 mg/dl (70-99)
[2024-08-01 11:39] VITALS: BP 141/90
--- NOTE | 2024-08-01 11:44 | W.PN.URO.CBU ---
Today's Communication / Plan
-
no new input
Assessment / Plan
-
scrotal cellulitis
s/p scrotal exploration 07/25
stable urologically
Diagnosis
-
Date of Service: August 01, 2024
-
Patient Diagnosis:
Scrotal cellulitis
Sepsis
Polysubstance abuse
Diabetes
Morbid obesity
Objective
-
Vital Signs
Temp Pulse Resp BP Pulse Ox
98.0 F 102 15 141/90 94
08/01/24 11:39 08/01/24 11:39 08/01/24 11:39 08/01/24 11:39 08/01/24 11:39
Intake and Output
07/31/24 08/01/24 08/02/24
06:59 06:59 06:59
Intake Total 855 / 855 680 / 680
Output Total 1425 / 1425 1150 / 1150
Balance -570 / -570 -470 / -470
Intake:
Oral fluids 480 / 480 480 / 480
IV fluids (Total) 300 / 300
D5w 1,000 ml @ 50 mls/hr IV . 300 / 300
Q20H JORDYN Rx#:[id number]
IV piggybacks 75 / 75 200 / 200
Output:
Urine, Brambila 1425 / 1425 1150 / 1150
Other:
Number of unmeasured liquid
stools
Rectum 1
Laboratory Results
08/01/24 05:29
08/01/24 05:29
Physical Exam
-
Genitalia - median raphe scrotal incision appears healthy with intact absorbable sutures
[2024-08-01 12:14] LABS: Glucose - Point of Care 134 mg/dl (70-99)
[2024-08-01 15:30] VITALS: BP 137/87
[2024-08-01 17:16] LABS: Glucose - Point of Care 134 mg/dl (70-99)
[2024-08-01 19:24] VITALS: BP 164/85
[2024-08-01] MEDS: APRESOLINE 10 MG IV (20:08)
[2024-08-01] MEDS: HALDOL PO (21:20)
[2024-08-01 21:23] LABS: Glucose - Point of Care 156 mg/dl (70-99)
[2024-08-01 23:48] VITALS: BP 149/79
[2024-08-02] VITALS (8 sets, daily range): BP systolic 115–169; BP diastolic 62–99; PULSE 2–101
[2024-08-02 05:16] LABS: % Basophils 0.7 % (0-2); % Eosinophils 2.6 % (0-6); % Immature Granulocytes 0.9 % (0-0.5); % Lymphocytes 24.7 % (20.5-51.1); % Neutrophils 58.1 % (42.2-75.2); Absolute Basophils 0.1 10^3/uL (0-0.2); Absolute Eosinophils 0.2 10^3/uL (0-0.7); Absolute Immature Granulocytes 0.1 10^3/uL (0-0.05); Absolute Monocytes 1.1 10^3/uL (0.1-0.6); Absolute Neutrophils 4.7 10^3/uL (1.4-6.5); Hematocrit 33.9 % (39.0-52.0); Hemoglobin 10.9 g/dL (13.0-18.0); Mean Corp Hgb Conc. 32.2 g/dL (33.0-37.0); Mean Corpuscular Volume 93.4 fL (80.0-94.0); Mean Platelet Volume 10.8 fL (7.4-10.4); Nucleated Red Blood Cells % 0.2 % (-); Platelet Count 291 10^3/uL (130-400); Red Blood Cell Count 3.63 10^6/uL (4.70-6.10); Red Cell Dist. Width 18.7 % (11.5-14.5); White Blood Cell Count 8.1 10^3/uL (4.8-10.8)
[2024-08-02 05:40] LABS: ALT (SGPT) 25 U/L (0-50); AST (SGOT) 29 U/L (17-59); Albumin 3.5 g/dl (3.5-5.0); Alkaline Phosphatase 48 U/L (38-126); Blood Urea Nitrogen 10 mg/dl (9-20); Calcium 8.6 mg/dl (8.4-10.2); Carbon Dioxide 34 mmol/L (22-30); Chloride 95 mmol/L (98-107); Estimated Creatinine Clearance > 125 ml/min; Glucose 146 mg/dl (70-99); Potassium 3.6 mmol/L (3.5-5.1); Sodium 137 mmol/L (135-145); Total Bilirubin 0.6 mg/dl (0.2-1.3); Total Protein 6.7 g/dl (6.3-8.2); eGFR > 60.00
[2024-08-02] MEDS: ZOSYN 50 IV ×4 (05:52→23:47)
[2024-08-02 07:35] LABS: Glucose - Point of Care 138 mg/dl (70-99)
[2024-08-02] MEDS: NOVOLOG FLEXPEN-LOW RESISTANCE SC ×2 (08:30→12:40)
[2024-08-02] MEDS: LOVENOX 60 MG SC ×2 (08:37→19:36)
[2024-08-02] MEDS: PROTONIX 40 MG PO (08:37)
[2024-08-02] MEDS: TYLENOL ORAL SOLUTION 650 MG PO (08:37)
[2024-08-02] MEDS: MIRALAX 17 GRAMS TUBE (08:37)
[2024-08-02] MEDS: DESENEX/MITRAZOL/ZEASORB 1 APPLIC TOPICAL ×2 (08:39→19:37)
--- NOTE | 2024-08-02 11:46 | W.PN.HOSP.TC ---
Today's Communication/Plan
-
Monitor vital signs see plan
Laxatives
Psychiatry to decide on Haldol dosing
Brambila
PT/OT, encourage ambulation
Wean oxygen as tolerated
Discharge planning, need placement
Assessment / Plan
Assessment / Plan
29yo M with apparent PMHX of DM, morbidly obese, N2O abuse came after he left AMA from [facility] (did not like how he was treated there), where he was treated for scrotal infection. He had inflammation in his private area for a long time now. CT showed
scrotal cellulitis, concern for initial stages of Rustam gangrene. Also apparently had episodes of hallucinations in [facility] treated with precedex drip and Ativan. Also new onset DM
A/P
#Scrotal cellulitis with sepsis (fever, hallucinations)
suspect TME 2/2 Sepsis; also does appear to have component of withdrawal
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
Bcx NTD
Urology con: s/p scrotal exploration on 07/25/24 - found cellulitis only, intubated after procedure due to possible withdrawal. scrotal drain dc'ed 07/29
Ecd following, vent management per pulmonary. s/p extubation 07/29. Now on 4 L. Wean oxygen as tolerated. Mental status much better today. Does not appear to have any hallucination at this time. Waxing and waning mental status. now
improving
Off sedation
Haldol per psychiatry. per RN he refused it yesterday however now per patient overnight he did had some hallucination. Defer to psychiatry for management
ID following: Antibiotics switched to Zosyn 07/29
Brambila; remove when able per urology
psych following
no reported hx of IVDU
Acute hypoxic respiratory failure 2/2 suspected pulmonary edema
do not suspect this was congestive heart failure. Could be secondary to hypertensive emergency at that time and patient was also on fluids.
echo with preserved EF
monitor
Weaned off trend, status post extubation 07/29. Now on nasal cannula. Wean oxygen as tolerated. Recently diagnosed MATT. BiPAP when sleeping for now. Patient to follow-up outpatient for his MATT.
Persistent fever, ID following. COVID-negative. Flu neg. UA not suggestive of UTI. Blood culture 07/28 NGTD
Speech following. Okay for regular diet
Hypertension
No prior history
Start nifedipine
#DM type 2, with unspecified complications
Accuchecks, insulin SS, DM diet
HgbA1c 7.1
#Hallucinations
#hx of alcohol abuse
08/02 N20
Thiamine/Folat
Monitor for withdrawal
psych following
Head CT without acute findings
Haldol PRN and standing
Now off Seroquel and started on Haldol. Psych to decide on Haldol dosing
#Morbid obesity
BMI 68.3
decrease calorie intake
Hyponatremia
Monitor
#new diagnosis of DM
Accuchekcs, insulin SS, DM diet
d/c with oral hypoglycemics as HgbA1c 7.1%
#GERD
cont PPI
DVT ppx hep
full code
PT/OT recommending possible acute rehab, physiatry saw; anticipate more appropriate for skilled
General: No acute distress
Respiratory: Clear to Auscultation
Cardiac: Regular Rhythm
GI: Soft
Genito-urinary: Brambila
Neuro: non focal
Psych: calm
Anticipated Discharge: Within 24 hours
Subjective/Interval History
-
Date of Service: August 02, 2024
denies pain
Objective Data
-
Labs:
Laboratory Results
08/02/24
04:49
WBC 8.1
Hgb 10.9 L
Hct 33.9 L
Plt Count 291
Sodium 137
Potassium 3.6
Chloride 95 L
Carbon Dioxide 34 H
BUN 10
Creatinine 0.6 L
Glucose 146 H
Calcium 8.6
Total Bilirubin 0.6
AST 29
ALT 25
Alkaline Phosphatase 48
Vital Signs:
Vital Signs
Temp Pulse Resp BP Pulse Ox
98.7 F 103 18 164/81 97
08/02/24 07:34 08/02/24 07:34 08/02/24 07:34 08/02/24 07:34 08/02/24 07:34
I&O
08/01/24 08/02/24 08/03/24
06:59 06:59 06:59
Intake Total 680 / 680 1440 / 1440
Output Total 1150 / 1150 2099 / 2099
Balance -470 / -470 -660 / -660
[2024-08-02 12:35] LABS: Glucose - Point of Care 145 mg/dl (70-99)
[2024-08-02] MEDS: APRESOLINE 10 MG IV (12:40)
[2024-08-02] MEDS: PROCARDIA XL (EXTENDED RELEASE) 30 MG PO (12:54)
[2024-08-02] MEDS: COLACE 100 MG PO ×2 (12:54→19:36)
--- NOTE | 2024-08-02 16:00 | W.PN.UPDATE ---
Update Note
Progress Note Update
29 y/o single male with cellulitis of scrotum who had psychotic symptoms as a result of abusing nitrous oxide. He is prescribed Haldol 2 mg. AM and 5 mg. HS and from AUG, has not taken any doses. Nurse advised me today that he refused it last
night and this morning.
He is resting in bed, more tired than yesterday. Mother is visiting. He apparently did not take the Haldol thinking he did not need it and concerned about sedation. However, last night he had disturbing hallucinations and paranoia which he felt
was real. Not hallucinating now. I suggested that he take Haldol 5 mg. at night for the next few weeks. He has asked to be seen in my office for follow-up as he does not have a psychiatrist. He does see Angelica Rodrigues privately for drug
abuse counseling, but only once a month and missed his last appointment.
He has not been taking Ativan PRN nor Dilaudid. Is still on iv antibiotics.
Will discontinue AM Haldol and continue Haldol 5 mg. HS. Psychiatry will follow.
[2024-08-02 16:54] LABS: Glucose - Point of Care 173 mg/dl (70-99)
[2024-08-02] MEDS: NOVOLOG FLEXPEN-LOW RESISTANCE 1 UNITS SC (17:13)
[2024-08-02] MEDS: HALDOL 5 MG PO (21:10)
[2024-08-02 21:34] LABS: Glucose - Point of Care 126 mg/dl (70-99)
[2024-08-03] VITALS (7 sets, daily range): BP systolic 118–172; BP diastolic 61–91; BMI 67.3
[2024-08-03] MEDS: ZOSYN 50 IV (05:31)
[2024-08-03 06:03] LABS: % Basophils 0.7 % (0-2); % Eosinophils 2.5 % (0-6); % Lymphocytes 28.4 % (20.5-51.1); % Monocytes 10.8 % (1.7-9.3); % Neutrophils 56.6 % (42.2-75.2); Absolute Basophils 0.1 10^3/uL (0-0.2); Absolute Eosinophils 0.2 10^3/uL (0-0.7); Absolute Immature Granulocytes 0.1 10^3/uL (0-0.05); Absolute Lymphocytes 2.4 10^3/uL (1.2-3.4); Absolute Monocytes 0.9 10^3/uL (0.1-0.6); Absolute Neutrophils 4.7 10^3/uL (1.4-6.5); Hematocrit 35.1 % (39.0-52.0); Hemoglobin 11.2 g/dL (13.0-18.0); Mean Corp Hgb Conc. 31.9 g/dL (33.0-37.0); Mean Corpuscular Volume 94.1 fL (80.0-94.0); Mean Platelet Volume 11.2 fL (7.4-10.4); Nucleated Red Blood Cells % 0 % (-); Platelet Count 331 10^3/uL (130-400); Red Blood Cell Count 3.73 10^6/uL (4.70-6.10); Red Cell Dist. Width 18.9 % (11.5-14.5); White Blood Cell Count 8.3 10^3/uL (4.8-10.8)
[2024-08-03 06:28] LABS: ALT (SGPT) 26 U/L (0-50); AST (SGOT) 30 U/L (17-59); Albumin 3.5 g/dl (3.5-5.0); Alkaline Phosphatase 46 U/L (38-126); Blood Urea Nitrogen 11 mg/dl (9-20); Calcium 8.8 mg/dl (8.4-10.2); Carbon Dioxide 33 mmol/L (22-30); Chloride 93 mmol/L (98-107); Estimated Creatinine Clearance > 125 ml/min; Glucose 142 mg/dl (70-99); Potassium 3.6 mmol/L (3.5-5.1); Sodium 135 mmol/L (135-145); Total Bilirubin 0.8 mg/dl (0.2-1.3); Total Protein 6.3 g/dl (6.3-8.2); eGFR > 60.00
[2024-08-03 08:27] LABS: Glucose - Point of Care 118 mg/dl (70-99)
[2024-08-03] MEDS: NOVOLOG FLEXPEN-LOW RESISTANCE SC ×2 (08:57→18:05)
[2024-08-03] MEDS: LOVENOX 60 MG SC ×2 (08:58→19:33)
[2024-08-03] MEDS: PROTONIX 40 MG PO (08:58)
[2024-08-03] MEDS: PROCARDIA XL (EXTENDED RELEASE) 30 MG PO (08:58)
[2024-08-03] MEDS: MIRALAX 17 GRAMS TUBE (08:58)
[2024-08-03] MEDS: COLACE 100 MG PO ×2 (08:58→19:32)
[2024-08-03] MEDS: DESENEX/MITRAZOL/ZEASORB 1 APPLIC TOPICAL ×2 (09:00→19:59)
--- NOTE | 2024-08-03 11:12 | W.PN.ID1 ---
Date of Service
Date of Service: August 03, 2024
Today's Communication
DC Zosyn.
ID will sign off.
Assessment / Plan
# Scrotal edema/cellulitis resolved. s/p OR scrotal exploration (NO Rustam's)
# Fever resolved
- Unclear source. ?drug fever - Quetiapine dc'd 07/29 with downtrend of fevers.
- COVID19, Influenza neg
- Repeat blood cx's x 2, neg to date
- UA neg
- Sputum cx: non productive
- Leukocytosis today. No diarrhea.
- s/p cefazolin (x4d)
- DC Zosyn (d6)
# Change in mental status resolving
# nitrous oxide abuse
# Former alcohol abuse
-On haldol
# New dx of DM2.
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
Diabetes mellitus
Class III obesity BMI 62
MATT
Past Hx Substance abuse (Valium)
Right hand ORIF
Right Ankle Surgery
Knee Arthroscopy
Chief Complaint
-: Cellulitis (scrotum)
Subjective / Review of Systems
No complaints
Vital Signs / Physical Exam
Vital Signs
Vital Signs
Temp Pulse Resp BP Pulse Ox
97.5 F 99 17 157/87 100
08/03/24 07:20 08/03/24 08:58 08/03/24 07:20 08/03/24 08:58 08/03/24 07:20
Physical Exam
Constitutional: No Acute Distress, Comfortable and Obese
Cardiovascular: Regular Rate and S1/S2
Pulmonary: Clear
Gastrointestinal: Soft and Non Tender
Genito-Urinary: Other (Scrotum erythema resolved)
Objective Data
Lab Data
Lab Results
08/03/24 05:38
08/03/24 05:38
PT 15.0 Sec (11.4-14.6) H 07/25/24 06:47
INR 1.15 07/25/24 06:47
APTT 31.1 Sec (23.4-35.0) 07/25/24 06:47
Estimated Creat Clear > 125 ml/min 08/03/24 05:38
Lactic Acid Cancelled 07/25/24 04:15
Total Bilirubin 0.8 mg/dl (0.2-1.3) 08/03/24 05:38
AST 30 U/L (17-59) 08/03/24 05:38
ALT 26 U/L (0-50) 08/03/24 05:38
Alkaline Phosphatase 46 U/L (38-126) 08/03/24 05:38
Most recent labs reviewed.
Micro Results:
07/28/24 12:08 Blood Culture - Final
Blood/Venous No Growth - Final Report
07/28/24 11:01 Blood Culture - Final
Blood/Venous No Growth - Final Report
07/25/24 00:30 Blood Culture - Final
Blood/Venous No Growth - Final Report
07/25/24 00:31 Blood Culture - Final
Blood/Venous No Growth - Final Report
07/28/24 11:09 Influenza Types A & B (AQUILES) - Final
Nasal Swab Negative for Influenza A & B, NAAT
Negative results must be combined with clinical observations
and patient history.
Nucleic Acid Amplification test (NAAT)performed on the
TDX platform.
07/25/24 06:47 MRSA Screen - Final
Nose No Methicillin Resistant Staphylococcus aureus isolated.
07/25/[address]: Marked scrotal wall edema suggesting cellulitis. No subcutaneous gas identified to suggest Rustam's gangrene.
07/25/24 CXR: Mild to moderate CHF.
[2024-08-03 12:08] LABS: Glucose - Point of Care 171 mg/dl (70-99)
[2024-08-03] MEDS: NOVOLOG FLEXPEN-LOW RESISTANCE 1 UNITS SC (12:20)
--- NOTE | 2024-08-03 15:28 | W.PN.HOSP.TC ---
Today's Communication/Plan
-
cm for d/c
Assessment / Plan
Assessment / Plan
29yo M with apparent PMHX of DM, morbidly obese, N2O abuse came after he left AMA from [facility] (did not like how he was treated there), where he was treated for scrotal infection. He had inflammation in his private area for a long time now. CT showed
scrotal cellulitis, concern for initial stages of Rustam gangrene. Also apparently had episodes of hallucinations in [facility] treated with precedex drip and Ativan. Also new onset DM
A/P
#Scrotal cellulitis with sepsis (fever, hallucinations)
suspect TME 2/2 Sepsis; also does appear to have component of withdrawal
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
Bcx NTD
Urology con: s/p scrotal exploration on 07/25/24 - found cellulitis only, intubated after procedure due to possible withdrawal. scrotal drain dc'ed 07/29
Team Member following, vent management per pulmonary. s/p extubation 07/29. Now on 4 L. Wean oxygen as tolerated. mental status. now improved
Off sedation
Haldol per psychiatry. per RN he refused it yesterday however now per patient overnight he did had some hallucination. Defer to psychiatry for management
ID following: Antibiotics switched to Zosyn 07/29, stopped on 08/03/24
Brambila; remove when able per urology
psych following
no reported hx of IVDU
#Acute hypoxic respiratory failure 2/2 suspected pulmonary edema
do not suspect this was congestive heart failure. Could be secondary to hypertensive emergency at that time and patient was also on fluids.
echo with preserved EF
monitor
Weaned off trend, status post extubation 07/29. Now on nasal cannula. Wean oxygen as tolerated. Recently diagnosed MATT. BiPAP when sleeping for now. Patient to follow-up outpatient for his MATT.
Persistent fever, ID following. COVID-negative. Flu neg. UA not suggestive of UTI. Blood culture 07/28 NGTD
Speech following. Okay for regular diet
#Essential HTN
No prior history
Start nifedipine
#DM type 2, with unspecified complications
Accuchecks, insulin SS, DM diet
HgbA1c 7.1
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
#hx of alcohol abuse
/ N20
Thiamine/Folat
Monitor for withdrawal
psych following
Head CT without acute findings
Haldol PRN and standing
Now off Seroquel and started on Haldol. Psych to decide on Haldol dosing
#Morbid obesity
BMI 68.3
decrease calorie intake
Hyponatremia
Monitor
#new diagnosis of DM
Accuchekcs, insulin SS, DM diet
d/c with oral hypoglycemics as HgbA1c 7.1%
#GERD
cont PPI
DVT ppx hep
full code
PT/OT recommending possible acute rehab, physiatry saw; anticipate more appropriate for skilled
Anticipated Discharge: Within 24 hours
Subjective/Interval History
-
Date of Service: August 03, 2024
Objective Data
-
Labs:
Laboratory Results
08/03/24
05:38
WBC 8.3
Hgb 11.2 L
Hct 35.1 L
Plt Count 331
Sodium 135
Potassium 3.6
Chloride 93 L
Carbon Dioxide 33 H
BUN 11
Creatinine 0.8
Glucose 142 H
Calcium 8.8
Total Bilirubin 0.8
AST 30
ALT 26
Alkaline Phosphatase 46
Vital Signs:
Vital Signs
Temp Pulse Resp BP Pulse Ox
97.9 F 96 18 140/80 98
08/03/24 11:25 08/03/24 14:15 08/03/24 11:25 08/03/24 14:15 08/03/24 11:25
I&O
08/02/24 08/03/24 08/04/24
06:59 06:59 06:59
Intake Total 1440 / 1440 1680 / 1680
Output Total 2099 / 2099 3100 / 3100
Balance -660 / -660 -1420 / -1420
Review of Systems
-
History Source: Patient
All other systems: Reviewed and negative
Physical Exam
-
General: No Apparent Distress and Morbidly Obese
HEENT: Normocephalic
Cardiac: Regular Rhythm
GI: Soft, Nontender and Nondistended
Neuro: Awake, Alert, Oriented and AO x 3
Psych: Calm
--- NOTE | 2024-08-03 16:29 | CM ---
Met with patient and mother Genet
Await updated PT/OT rec
Patient/mom would like to go home
Discussed options
PLAN: Await updated PT/OT recs
[2024-08-03 17:59] LABS: Glucose - Point of Care 124 mg/dl (70-99)
[2024-08-03] MEDS: APRESOLINE 10 MG IV (19:44)
[2024-08-03] MEDS: HALDOL 5 MG PO (21:46)
[2024-08-03 21:49] LABS: Glucose - Point of Care 143 mg/dl (70-99)
[2024-08-04] VITALS (8 sets, daily range): BP systolic 138–163; BP diastolic 65–96; PULSE 102; O2SAT 98
[2024-08-04 08:52] LABS: Glucose - Point of Care 108 mg/dl (70-99)
[2024-08-04] MEDS: PROCARDIA XL (EXTENDED RELEASE) 30 MG PO (09:07)
[2024-08-04] MEDS: PROTONIX 40 MG PO (09:07)
[2024-08-04] MEDS: COLACE 100 MG PO (09:08)
[2024-08-04] MEDS: NOVOLOG FLEXPEN-LOW RESISTANCE SC ×3 (09:08→18:00)
[2024-08-04] MEDS: MIRALAX 17 GRAMS TUBE (09:08)
[2024-08-04] MEDS: DESENEX/MITRAZOL/ZEASORB 1 APPLIC TOPICAL ×2 (09:08→20:32)
[2024-08-04] MEDS: LOVENOX 60 MG SC ×2 (09:08→20:32)
--- NOTE | 2024-08-04 09:40 | PTCARENOTE ---
Brambila pulled this AM at 0900 for voiding trial, as per communication with urology yesterday.
--- NOTE | 2024-08-04 11:09 | W.PN.UPDATE ---
Update Note
Progress Note Update
Patient seen, chart reviewed, discussed with staff. Patient reports doing well today. He is up in the chair and tells me he finally feels 'normal' again. No acute issues overnight. No overt signs/symtpoms of psychosis. Denies any AH/VH. No longer
c/o daytime sedation after d/c of AM Haldol.
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
--- NOTE | 2024-08-04 11:35 | W.PN.HOSP.TC ---
Today's Communication/Plan
-
Await updated PT/OT recs
see A/P
Assessment / Plan
Assessment / Plan
29 yo M with apparent PMHX of DM, morbidly obese, nitrous oxide abuse came after he left AMA from [facility] (did not like how he was treated there), where he was treated for scrotal infection. He had inflammation in his private area for a long time now.
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 Also apparently had episodes of hallucinations in [facility] treated with precedex drip and Ativan. Also new onset DM
A/P
# Scrotal cellulitis with sepsis (fever, hallucinations)
suspect TME 2/2 Sepsis; also does appear to have component of withdrawal
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
Bcx NTD
s/p scrotal exploration 07/25 by Uro, found cellulitis only, intubated after procedure due to possible withdrawal. scrotal drain dc'ed 07/29
s/p extubation 07/29. Now on 1-2 L NC intermittently. Wean oxygen as tolerated. Mental status improved, AOX3
Antibiotics switched to Zosyn 07/29, stopped on 08/03/24. ID will sign off.
Haldol 5mg HS per psychiatry.
Off Brambila per urology
no reported hx of IVDU
# Acute hypoxic respiratory failure 2/2 suspected pulmonary edema
do not suspect this was congestive heart failure. Could be secondary to hypertensive emergency at that time and patient was also on fluids.
echo with preserved EF
status post extubation 07/29. Now on nasal cannula. Wean oxygen as tolerated. Recently diagnosed MATT. BiPAP when sleeping for now. Patient to follow-up outpatient for his MATT.
Speech following. Okay for regular diet
# Essential HTN
No prior history
Started nifedipine 30 mg daily, BP stable
# new diagnosis of DM
Accuchecks, insulin SS, DM diet
HgbA1c 7.1
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
# hx of alcohol abuse
Monitor for withdrawal
psych following
Head CT without acute findings
Haldol PRN and standing
Now off Seroquel and started on Haldol. Psych to decide on Haldol dosing
Thiamine/Folate
# Morbid obesity
BMI 68.3
decrease calorie intake
# Hyponatremia
Monitor
# GERD
cont PPI
DVT ppx hep
full code
Dispo plan: Await updated PT/OT recs
Anticipated Discharge: 24 - 48 hours
Subjective/Interval History
-
Date of Service: August 04, 2024
Objective Data
-
Vital Signs:
Vital Signs
Temp Pulse Resp BP Pulse Ox
36.4 C 98 16 148/88 95
08/04/24 07:23 08/04/24 09:07 08/04/24 07:23 08/04/24 09:07 08/04/24 07:23
I&O
08/03/24 08/04/24 08/05/24
06:59 06:59 06:59
Intake Total 1680 / 1680 960 / 960
Output Total 3100 / 3100 2650 / 2650
Balance -1420 / -1420 -1690 / -1690
Review of Systems
-
History Source: Patient
All other systems: Reviewed and negative
Physical Exam
-
General: Well Developed, No Apparent Distress, Conversant and Morbidly Obese
HEENT: Normocephalic and Oxygen (intermittent use of 2L NC )
Respiratory: Non Labored Respirations; Negative Accessory Resp Muscle Use
Cardiac: Regular Rhythm and S1/S2
GI: Soft, Nontender and Nondistended
Genito-urinary: Negative Brambila
Neuro: Awake, Alert, Oriented and AO x 3
Psych: Calm and Intact Judgement/Insight
Data Reviewed
-
Labs: Labs Reviewed by me
[2024-08-04 12:08] LABS: Glucose - Point of Care 115 mg/dl (70-99)
--- NOTE | 2024-08-04 13:26 | PTCARENOTE ---
Patient reports having voided one large amount, post stovall-removal.
--- NOTE | 2024-08-04 15:50 | CM ---
Met with patient & mom Genet
PT rec HH
Options reviewed - prefer [facility]
PLAN: Discharge when stable, home with VN
[2024-08-04 17:47] LABS: Glucose - Point of Care 106 mg/dl (70-99)
[2024-08-04] MEDS: COLACE PO (20:32)
[2024-08-04 21:26] LABS: Glucose - Point of Care 125 mg/dl (70-99)
[2024-08-04] MEDS: HALDOL 5 MG PO (21:38)
[2024-08-05] MEDS: APRESOLINE 10 MG IV (00:54)
[2024-08-05 02:06] VITALS: BP 156/95
[2024-08-05 07:28] VITALS: BP 150/88
[2024-08-05 07:28] LABS: Glucose - Point of Care 107 mg/dl (70-99)
[2024-08-05] MEDS: NOVOLOG FLEXPEN-LOW RESISTANCE SC (07:38)
[2024-08-05] MEDS: PROCARDIA XL (EXTENDED RELEASE) 30 MG PO (08:34)
[2024-08-05] MEDS: PROTONIX 40 MG PO (08:34)
[2024-08-05] MEDS: LOVENOX 60 MG SC (08:34)
--- NOTE | 2024-08-05 08:35 | W.PN.HOSP.TC ---
Today's Communication/Plan
-
DC
Assessment / Plan
Assessment / Plan
29 yo M with apparent PMHX of DM, morbidly obese, nitrous oxide abuse came after he left AMA from [facility] (did not like how he was treated there), where he was treated for scrotal infection. He had inflammation in his private area for a long time now.
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 Also apparently had episodes of hallucinations in [facility] treated with precedex drip and Ativan. Also new onset DM. Completed courses of Abx as per ID recommendations. PT/OT
recommended home health with RW - Rx to be left in the paper chart. Medically stable for d/c
A/P
#Scrotal cellulitis with sepsis (fever, hallucinations)
suspect TME 2/2 Sepsis; also does appear to have component of withdrawal
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
Bcx NTD
s/p scrotal exploration 07/25 by Uro, found cellulitis only, intubated after procedure due to possible withdrawal. scrotal drain dc'ed 07/29
s/p extubation 07/29. Now on 1-2 L NC intermittently. Wean oxygen as tolerated. Mental status improved, AOX3
Antibiotics switched to Zosyn 07/29, stopped on 08/03/24. ID will sign off.
Haldol 5mg HS per psychiatry.
Off Brambila per urology
no reported hx of IVDU
# Acute hypoxic respiratory failure 2/2 suspected pulmonary edema
do not suspect this was congestive heart failure. Could be secondary to hypertensive emergency at that time and patient was also on fluids.
echo with preserved EF
status post extubation 07/29. Weaned oxygen as tolerated. Recently diagnosed MATT. Patient to follow-up outpatient for his MATT.
# Essential HTN
No prior history
Started nifedipine 30 mg daily, BP stable
# new diagnosis of DM
Accuchecks, insulin SS, DM diet
HgbA1c 7.1
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
# hx of alcohol abuse
Monitor for withdrawal
psych following
Head CT without acute findings
Haldol PRN and standing
Now off Seroquel and started on Haldol. Psych to decide on Haldol dosing
Thiamine/Folate
# Morbid obesity
BMI 68.3
decrease calorie intake
# Hyponatremia
Monitor
# GERD
cont PPI
DVT ppx hep
full code
Dispo plan: Await updated PT/OT recs
Anticipated Discharge: Within 24 hours
Subjective/Interval History
-
Date of Service: August 05, 2024
Objective Data
-
Vital Signs:
Vital Signs
Temp Pulse Resp BP Pulse Ox
98.0 F 101 16 150/88 97
08/05/24 07:28 08/05/24 07:28 08/05/24 07:28 08/05/24 07:28 08/05/24 07:28
I&O
08/04/24 08/05/24 08/06/24
06:59 06:59 06:59
Intake Total 960 / 960 1680 / 1680
Output Total 2650 / 2650 400 / 400
Balance -1690 / -1690 1280 / 1280
Review of Systems
-
History Source: Patient
All other systems: Reviewed and negative
Physical Exam
-
General: No Apparent Distress and Morbidly Obese
GI: Soft, Nontender and Nondistended
Genito-urinary: Other (persistent mild redness and swelling of scrotum)
Neuro: Awake, Alert, Oriented and AO x 3
Psych: Calm
[2024-08-05] MEDS: DESENEX/MITRAZOL/ZEASORB 1 APPLIC TOPICAL (08:36)
[2024-08-05] MEDS: COLACE PO (08:37)
[2024-08-05] MEDS: MIRALAX TUBE (08:37)
--- NOTE | 2024-08-05 08:49 | W.DCSUMMARY ---
Discharge Summary
Discharge Data
Date of Admission: 07/25/24
Date of Discharge: 08/05/24
-
Pending Results: No
Hospital Course
29 yo M with apparent PMHX of DM, morbidly obese, nitrous oxide abuse came after he left AMA from [facility] (did not like how he was treated there), where he was treated for scrotal infection. He had inflammation in his private area for a long time now.
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 Also apparently had episodes of hallucinations in [facility] treated with precedex drip and Ativan. Also new onset DM. Completed courses of Abx as per ID recommendations. Passed
trial of void. No psychotic symptoms, psych titrated haldol down, will stop on d/c. PT/OT recommended home health with RW - Rx to be left in the paper chart. Medically stable for d/c
I have spent at least 38min reviewing chart, test results, communication with consultants and direct patient care
Patient was managed for
#Scrotal cellulitis with sepsis (fever, hallucinations)
# Acute hypoxic respiratory failure 2/2 suspected pulmonary edema
# Essential HTN
# new diagnosis of DM
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
# hx of alcohol abuse
# Morbid obesity
# Hyponatremia
# GERD
Discharge Plan
-
Patient Disposition: Home with Home Care
Discharge Diagnosis/Procedures: scrotal cellulitis
Diet: Diabetic, Carb Controlled
Activity: As tolerated
Driving Restrictions: As prior to admission
Referrals:
Mukul Velasquez MD [Active] - in four to six weeks (Sleep-MATT eval, Schedule [employer]ERAL DIRECTOR'S ASSISTANT)
Everardo Jiang MD [Active] -
UNKNOWN - PT DOES,NOT KNOW [Family Provider] -
Prescriptions:
New
nifedipine 30 mg Tablet Extended Release
30 mg PO DAILY Qty: 30 0RF
metformin 500 mg tablet
500 mg PO BID Qty: 60 0RF
Continued
esomeprazole magnesium [Nexium] 20 mg Capsule,Delayed Release(Dr/Ec)
20 mg PO DAILY
Discharge Orders:
Discharge Patient (As Directed); Ordered 08/05/24
Ordered By: Axel Castro
Discharge Date and Time
Print Language: HUNGARIAN
[2024-08-05 11:14] VITALS: BP 125/79
--- NOTE | 2024-08-05 11:15 | PTCARENOTE ---
pt removed his midline himself, no bleeding noted on the site
--- NOTE | 2024-08-05 11:26 | W.PN.UPDATE ---
Update Note
Progress Note Update
patient seen chart reviewed. discussed with nursing. psychosis at this point seems resolved. over weekend haldol decreased to 5 mg q hs. would continue to cut back in one week cut to one half tablet then stop after another week as long as sx
remain at bay. he does have a therapist helping him. if sx of psychosis return he may need consultation with psych he MUST remain sober he does seem convinced of this reminded him that even medical mj can trigger psychosis. if he can't stay
sober he should consider [facility] or [facility] or other intensive out pt program. patient leaving today psych signing off.
--- NOTE | 2024-08-05 12:28 | VATNOTE ---
Called by pt's primary RN that pt pulled Midline out himself. Upon assessing site, no bruising or bleeding. TCL retrieved was 15cm. Pt to be D/C'd home.
--- NOTE | 2024-08-05 13:27 | CM ---
Patient discharge to home.
Script for bariatric walker in chart-PT gave walker to patient
[facility] accepted & will follow at home
No IMM n/a
PLAN: Home with [facility], Mom to transport
--- NOTE | 2024-08-06 09:49 | VNURNOTE ---
Late entry: Chart reviewed. Referral accepted in [facility] for [facility].
== END 2024-08-05 13:00 | disposition home health service (06) | DRG 871 ==
LOC: 2 NORTH 05:22
PROVIDERS: Internal Medicine; Internal Medicine Critical Care Medicine; Nurse Practitioner Family; Physician Assistant; Radiology Diagnostic Radiology; ADMITTING PHYSICIAN Hospitalist; ATTENDING PHYSICIAN Internal Medicine; CONSULT PHYSICIAN Internal Medicine Critical Care Medicine; CONSULT PHYSICIAN Internal Medicine Infectious Disease; CONSULT PHYSICIAN Physical Medicine & Rehabilitation; CONSULT PHYSICIAN Psychiatry & Neurology Neurology; CONSULT PHYSICIAN Urology; EMERGENCY PHYSICIAN Emergency Medicine
PROC: 0VJ80ZZ Inspection of Scrotum and Tunica Vaginalis, Open Approach (ICD-10-PCS; 2024-07-25)
PROC: 5A1945Z Respiratory Ventilation, 24-96 Consecutive Hours (ICD-10-PCS; 2024-07-25)
PROC: 0DH67UZ Insertion of Feeding Device into Stomach, Via Natural or Artificial Opening (ICD-10-PCS; 2024-07-26)
PROC: 02HV33Z Insertion of Infusion Device into Superior Vena Cava, Percutaneous Approach (ICD-10-PCS; 2024-07-27)
DX: A41.9 Sepsis, unspecified organism (principal); G92.8 Other toxic encephalopathy; J96.01 Acute respiratory failure with hypoxia; J81.0 Acute pulmonary edema; Z68.44 Body mass index [BMI] 60.0-69.9, adult; R44.0 Auditory hallucinations; E87.1 Hypo-osmolality and hyponatremia; E87.29 Other acidosis; I16.1 Hypertensive emergency; N49.2 Inflammatory disorders of scrotum; R33.8 Other retention of urine; E66.01 Morbid (severe) obesity due to excess calories; E11.9 Type 2 diabetes mellitus without complications; G47.33 Obstructive sleep apnea (adult) (pediatric); I10 Essential (primary) hypertension; F18.10 Inhalant abuse, uncomplicated; R44.1 Visual hallucinations; E66.813 Obesity, class 3; D53.9 Nutritional anemia, unspecified; K21.9 Gastro-esophageal reflux disease without esophagitis; Z11.52 Encounter for screening for COVID-19
CPT/HCPCS: 36600; 70450; 71045; 72193; 74018; 80053; 80306; 80307; 81003; 81015; 82010; 82248; 82550; 82607; 82728; 82746; 82805; 82962; 83036; 83540; 83550; 83605; 83735; 83880; 83921; 84100; 84145; 84443; 84478; 84484; 85025; 85610; 85730; 87040; 87070; 87502; 87811; 92610; 93005; 93306; 94002; 94003; 94660; 94760; 96361; 96365; 96366; 96367; 96375; 97110; 97116; 97163; 97166; 97535; 99285; Q9967